=== PATIENT | male | born 1935 | race Two or more races ===

== ENCOUNTER 2018-07-25 19:54 | Inpatient (IN) | payer MEDICARE, MEDICAID ==
[~2018-07-25] VITALS: Ht 167.6 cm; Wt 81.6 kg
[~2018-07-25 19:54] MED LIST: BACLOFEN10 MG ORAL; BISACODYL5 MG RECTAL; COLACE100 MG ORAL; GABAPENTIN300 MG ORAL; GUAIFENESI100 MG/5 M ORAL; LORAZEPAM1 MG ORAL; METOPROLOL TAR100 MG ORAL; MOM30 ML ORAL; PANTOPRAZOLE SO40 MG ORAL; SENNA8.6 M3 PO; TYLENOL650 MG/20. ORAL; VITAMIN B COMP1 EAC5 PO; VITAMIN C250 MG ORAL; magnesium ORAL
[2018-07-25] MEDS ORDERED: AMLODIPINE BESY10 MG ORAL (20:02)
[2018-07-25] MEDS ORDERED: BENADRYL A12.5 MG/5 ORAL (20:06)
[2018-07-25] MEDS ORDERED: FUROSEMIDE40 MG ORAL (20:06)
[2018-07-25] MEDS ORDERED: MIRALAX17 G2 ORAL (20:07)
[2018-07-25] MEDS ORDERED: POTASSIUM99 M3 PO (20:08)
[2018-07-25] MEDS ORDERED: PREPARATION H1 EAC1 TP (20:09)
--- NOTE | 2018-07-25 21:00 | NUR ---
ED Nurse Note: RECIEVED PT BIBA FROM SNF WITH C/O ABNORMAL LABS, UNSURE OF WHAT LABS ARE ABNORMAL, PT IS AWAKE, ALERT AND ORIENTED X 4, DENIES PAIN, NO SOB OR LABORED BREATHING, PT PLACED ON CARDIAC MONITORING, IV LINE PALCED AND LABS DRAWN, WILL RESUME CARE ORDERED AND CONTINUE TO CLOSELY MONITOR.
--- NOTE | 2018-07-25 21:00 | Emergency Room Report ---
History of Present Illness General Chief Complaint: General Complaint Source: Patient, EMS Present Illness HPI The patient is sent in for abnormal labs. Apparently his white count is high and also his creatinine. According to EMS he was also complaining about abdominal pain and having difficulty moving his bowels and having decreased urine output. He states it has been at least 4 days since he was able to move his bowels. The pain in his abdomen is diffuse. Denies vomiting or rectal bleeding. He states his urine has been dark and he has to bear down hard to urinate. Denies fevers, chest pain, URI, cough, dyspnea. He does feel weak. He rates the pain 6/10 to me, pressure and diffuse, not radiating. He is complaining that his eyes are dry and burning. S/P CVA with L sided weakness. H/O HTN GERD Allergies: Coded Allergies: No Known Allergies (Unverified , 09/03/14) Patient History Past Medical History: see triage record, old chart reviewed Past Surgical History: appy Social History: Denies: smoking Social History Narrative SNF Reviewed Nursing Documentation: PMH: Agreed; PSxH: Agreed Nursing Documentation-PMH Past Medical History: No History, Except For Hx Cardiac Problems: Yes Hx Hypertension: Yes Hx Cancer: Yes - BPH Hx Gastrointestinal Problems: Yes - GERD History Of Psychiatric Problem: Yes - DEMENTIA Hx Neurological Problems: Yes Hx Cerebrovascular Accident: Yes Hx Weakness: Yes Review of Systems All Other Systems: negative except mentioned in HPI Physical Exam Vital Signs Date Time Temp Pulse Resp B/P (MAP) Pulse Ox O2 Delivery O2 Flow Rate FiO2 07/25/18 19:55 98.8 75 16 154/67 92 Room Air Sp02 EP Interpretation: reviewed, normal General Appearance: no apparent distress, alert, Chronically Ill Head: normocephalic Eyes: bilateral eye normal inspection, bilateral eye PERRL, bilateral eye EOMI ENT: moist mucus membranes Neck: supple Respiratory: lungs clear, normal breath sounds Cardiovascular #1: regular rate, rhythm, no edema Cardiovascular #2: 2+ radial (R) Gastrointestinal: no guarding, no rebound, tenderness - diffuse Genitourinary: no CVA tenderness Musculoskeletal: back normal, no calf tenderness Neurologic: alert, sensory intact, motor weakness - L sided, oriented - X2 Psychiatric: mood/affect normal Skin: normal inspection, warm/dry Medical Decision Making Diagnostic Impression: Primary Impression: Abdominal pain in male Additional Impressions: Leukocytosis Qualified Codes: D72.828 - Other elevated white blood cell count Constipation Qualified Codes: K59.00 - Constipation, unspecified ER Course Patient presents with abdominal pain and alleged leukocytosis. DDx: SBO, diverticulitis, UTI, constipation, sepsis, ischemic bowel amongst others. Evaluation with EKG, CXR, Abd film and labs. Treatment with IV hydration. Patient declines pain medicine at this time. EKG without injury. CXR no infiltrates. Abd with increased stool. Leukocytosis. No pyuria (blood from difficult cath). Elevated BUN. Normal lactate. Discussed with family. Patient still with abdominal pain with some guarding. CT abdomen/pelvis indicated. (Choice of gastrograffin as will help move stool.) Admit med as source of leukocytosis and abdominal pain is unclear. Dr. Foote aware. Laboratory Tests Test 07/25/18 21:05 07/25/18 23:25 White Blood Count 10.9 K/UL (4.8-10.8) H Red Blood Count 4.82 M/UL (4.70-6.10) Hemoglobin 15.0 G/DL (14.2-18.0) Hematocrit 44.3 % (42.0-52.0) Mean Corpuscular Volume 92 FL (80-99) Mean Corpuscular Hemoglobin 31.2 PG (27.0-31.0) H Mean Corpuscular Hemoglobin Concent 33.9 G/DL (32.0-36.0) Red Cell Distribution Width 11.9 % (11.6-14.8) Platelet Count 240 K/UL (150-450) Mean Platelet Volume 6.5 FL (6.5-10.1) Neutrophils (%) (Auto) 64.0 % (45.0-75.0) Lymphocytes (%) (Auto) 25.9 % (20.0-45.0) Monocytes (%) (Auto) 7.0 % (1.0-10.0) Eosinophils (%) (Auto) 2.6 % (0.0-3.0) Basophils (%) (Auto) 0.6 % (0.0-2.0) Prothrombin Time 10.0 SEC (9.30-11.50) Prothrombin Time INR 0.9 (0.9-1.1) PTT 33 SEC (23-33) Sodium Level 138 MMOL/L (136-145) Potassium Level 3.8 MMOL/L (3.5-5.1) Chloride Level 103 MMOL/L (98-107) Carbon Dioxide Level 28 MMOL/L (21-32) Anion Gap 7 mmol/L (5-15) Blood Urea Nitrogen 21 mg/dL (7-18) H Creatinine 1.0 MG/DL (0.55-1.30) Estimate Glomerular Filtration Rate mL/min (>60) Glucose Level 173 MG/DL (74-106) H Lactic Acid Level 1.40 mmol/L (0.4-2.0) Calcium Level 8.9 MG/DL (8.5-10.1) Total Bilirubin 0.3 MG/DL (0.2-1.0) Aspartate Amino Transferase (AST) 17 U/L (15-37) Alanine Aminotransferase (ALT) 22 U/L (12-78) Alkaline Phosphatase 89 U/L (46-116) Total Creatine Kinase 51 U/L (26-308) Troponin I 0.000 ng/mL (0.000-0.056) Pro-B-Type Natriuretic Peptide 101 pg/mL (0-125) Total Protein 7.3 G/DL (6.4-8.2) Albumin 3.2 G/DL (3.4-5.0) L Globulin 4.1 g/dL Albumin/Globulin Ratio 0.8 (1.0-2.7) L Lipase 95 U/L (73-393) Urine Color Yellow Urine Appearance Slightly cloudy Urine pH 5 (4.5-8.0) Urine Specific [place] 1.025 (1.005-1.035) Urine Protein 2+ (NEGATIVE) H Urine Glucose (UA) Negative (NEGATIVE) Urine Ketones Negative (NEGATIVE) Urine Blood 5+ (NEGATIVE) H Urine Nitrite Negative (NEGATIVE) Urine Bilirubin Negative (NEGATIVE) Urine Urobilinogen 1 MG/DL (0.0-1.0) H Urine Leukocyte Esterase 1+ (NEGATIVE) H Urine RBC Tntc /HPF (0 - 0) H Urine WBC 0-2 /HPF (0 - 0) Urine Squamous Epithelial Cells None /LPF (NONE/OCC) Urine Bacteria Few /HPF (NONE) EKG Diagnostic Results Rate: normal Rhythm: NSR ST Segments: no acute changes - Low-voltage Rhythm Strip Diag. Results EP Interpretation: yes Rhythm: NSR, no PVC's, no ectopy Chest X-Ray Diagnostic Results Chest X-Ray Diagnostic Results : Chest X-Ray Ordered: Yes # of Views/Limited/Complete: 1 View Indication: Other EP Interpretation: Yes Interpretation: no consolidation, no effusion, no pneumothorax Impression: No acute disease Electronically Signed by: Homero Hidalgo MD Other X-Ray Diagnostic Results Other X-Ray Diagnostic Results : X-Ray ordered: abd # of Views/Limited Vs Complete: 2 View Indication: Pain Interpretation: nonspecific bowel gas, no sbo, other - increased stool load Impression: Other Electronically Signed by: Homero Hidalgo MD CT/MRI/US Diagnostic Results CT/MRI/US Diagnostic Results : Imaging Test Ordered: abd/pelvis Impression 1. Moderate colonic and rectal stool, suggesting constipation and possible mild impaction. 2. Ill-defined 2.5 x 1.5 cm hypodensity along the posterior spleen, nonspecific. Differential diagnosis includes a hemangioma or remote splenic infarct. 3. 2.5 cm simple-appearing cortical cyst in the right lower renal pole, unchanged. 4. The prostate gland is enlarged, measuring 6.5 x 6.5 x 4.8 cm, with an estimated volume of 106 cc. Laboratory Tests Test 07/25/18 21:05 07/25/18 23:25 White Blood Count 10.9 K/UL (4.8-10.8) H Red Blood Count 4.82 M/UL (4.70-6.10) Hemoglobin 15.0 G/DL (14.2-18.0) Hematocrit 44.3 % (42.0-52.0) Mean Corpuscular Volume 92 FL (80-99) Mean Corpuscular Hemoglobin 31.2 PG (27.0-31.0) H Mean Corpuscular Hemoglobin Concent 33.9 G/DL (32.0-36.0) Red Cell Distribution Width 11.9 % (11.6-14.8) Platelet Count 240 K/UL (150-450) Mean Platelet Volume 6.5 FL (6.5-10.1) Neutrophils (%) (Auto) 64.0 % (45.0-75.0) Lymphocytes (%) (Auto) 25.9 % (20.0-45.0) Monocytes (%) (Auto) 7.0 % (1.0-10.0) Eosinophils (%) (Auto) 2.6 % (0.0-3.0) Basophils (%) (Auto) 0.6 % (0.0-2.0) Prothrombin Time 10.0 SEC (9.30-11.50) Prothrombin Time INR 0.9 (0.9-1.1) PTT 33 SEC (23-33) Sodium Level 138 MMOL/L (136-145) Potassium Level 3.8 MMOL/L (3.5-5.1) Chloride Level 103 MMOL/L (98-107) Carbon Dioxide Level 28 MMOL/L (21-32) Anion Gap 7 mmol/L (5-15) Blood Urea Nitrogen 21 mg/dL (7-18) H Creatinine 1.0 MG/DL (0.55-1.30) Estimate Glomerular Filtration Rate mL/min (>60) Glucose Level 173 MG/DL (74-106) H Lactic Acid Level 1.40 mmol/L (0.4-2.0) Calcium Level 8.9 MG/DL (8.5-10.1) Total Bilirubin 0.3 MG/DL (0.2-1.0) Aspartate Amino Transferase (AST) 17 U/L (15-37) Alanine Aminotransferase (ALT) 22 U/L (12-78) Alkaline Phosphatase 89 U/L (46-116) Total Creatine Kinase 51 U/L (26-308) Troponin I 0.000 ng/mL (0.000-0.056) Pro-B-Type Natriuretic Peptide 101 pg/mL (0-125) Total Protein 7.3 G/DL (6.4-8.2) Albumin 3.2 G/DL (3.4-5.0) L Globulin 4.1 g/dL Albumin/Globulin Ratio 0.8 (1.0-2.7) L Lipase 95 U/L (73-393) Urine Color Yellow Urine Appearance Slightly cloudy Urine pH 5 (4.5-8.0) Urine Specific [place] 1.025 (1.005-1.035) Urine Protein 2+ (NEGATIVE) H Urine Glucose (UA) Negative (NEGATIVE) Urine Ketones Negative (NEGATIVE) Urine Blood 5+ (NEGATIVE) H Urine Nitrite Negative (NEGATIVE) Urine Bilirubin Negative (NEGATIVE) Urine Urobilinogen 1 MG/DL (0.0-1.0) H Urine Leukocyte Esterase 1+ (NEGATIVE) H Urine RBC Tntc /HPF (0 - 0) H Urine WBC 0-2 /HPF (0 - 0) Urine Squamous Epithelial Cells None /LPF (NONE/OCC) Urine Bacteria Few /HPF (NONE) Status: improved Disposition: ADMITTED INPATIENT Condition: Serious Homero Hidalgo MD Jul 25, 2018 21:00
--- NOTE | 2018-07-25 21:06 | Diagnostic Imaging Report ---
EXAM: XR Chest, 1 View CLINICAL HISTORY: CP TECHNIQUE: Frontal view of the chest. COMPARISON: No relevant prior studies available. FINDINGS: Lungs: No consolidation. Pleural space: Unremarkable. No pneumothorax. Heart: Unremarkable. No cardiomegaly. Mediastinum: Unremarkable. Bones/joints: No acute fracture. IMPRESSION: No acute cardiopulmonary disease.
[2018-07-25 21:45] LABS: BASOPHILS % (AUTO) 0.6 % (0.0-2.0); EOSINOPHILS % (AUTO) 2.6 % (0.0-3.0); HEMATOCRIT 44.3 % (42.0-52.0); LYMPHOCYTES % (AUTO) 25.9 % (20.0-45.0); MEAN CORPUSCULAR VOLUME 92 FL (80-99); PLATELET COUNT 240 K/UL (150-450); RED BLOOD COUNT 4.82 M/UL (4.70-6.10); RED CELL DISTRIBUTION WIDTH 11.9 % (11.6-14.8); WHITE BLOOD COUNT 10.9 K/UL (4.8-10.8)
--- NOTE | 2018-07-25 21:45 | NUR ---
ED Nurse Note: ATTEMPTED STRAIGHT CATH FOR URINE SAMPLE, UNABLE TO INSERT, RECIEVED RESISTANCE, INFORMED, CUDAY CATH PLACED, NO COMPLICATIONS OR BLEEDING, SPECIMEN SENT, PT CONTINUES TO REST QUIETLY IN BED, PT SPOUSE AND DAUGHTER HAS ARRIVED AND AT BEDSIDE, PT CONTINUES TO DENY ANY ACUTE CHANGES OR DISTRESS, WILL CONTINUE TO CLOSELY MONITOR AND PREPARE FOR PT ADMISSION.
[2018-07-25 21:47] LABS: INR 0.9 (0.9-1.1)
[2018-07-25 22:02] LABS: ANION GAP 7 mmol/L (5-15); BLOOD UREA NITROGEN 21 mg/dL (7-18); CALCIUM 8.9 MG/DL (8.5-10.1); CARBON DIOXIDE 28 MMOL/L (21-32); CHLORIDE 103 MMOL/L (98-107); POTASSIUM 3.8 MMOL/L (3.5-5.1); SODIUM 138 MMOL/L (136-145)
[2018-07-25 22:16] LABS: ALANINE AMINOTRANSFERASE 22 U/L (12-78); ALBUMIN 3.2 G/DL (3.4-5.0); ALBUMIN/GLOBULIN RATIO 0.8 (1.0-2.7); ALKALINE PHOSPHATASE 89 U/L (46-116); ASPARTATE AMINO TRANSFERASE 17 U/L (15-37); BILIRUBIN,TOTAL 0.3 MG/DL (0.2-1.0); CREATINE KINASE 51 U/L (26-308)
[2018-07-25 23:00] VITALS: BP 123/57
[2018-07-25] MEDS ORDERED: Artificial Tears 1.4% Op Soln BOTH EYES ONE (23:00)
[2018-07-25 23:50] LABS: APPEARANCE,URINE SLIGHTLY CLOUDY; BILIRUBIN, URINE NEGATIVE (NEGATIVE); GLUCOSE, URINE (UA) NEGATIVE (NEGATIVE); KETONES,URINE NEGATIVE (NEGATIVE); LEUKOCYTE ESTERASE ,URINE 1+ (NEGATIVE); NITRITE,URINE NEGATIVE (NEGATIVE); PH,URINE 5 (4.5-8.0); PROTEIN,URINE 2+ (NEGATIVE); UROBILINOGEN,URINE 1 MG/DL (0.0-1.0)
[2018-07-25 23:51] LABS: COLOR,URINE YELLOW
[2018-07-26] VITALS (9 sets, daily range): BP systolic 128–144; BP diastolic 59–74
--- NOTE | 2018-07-26 | NUR ---
ED Nurse Note: PT CONTINUES TO REST IN BED, AWAKE AND ALERT, ON CARDIAC MONITORING, IV SITE PATENT, FLUIDS COMPLETED, TOLERATED WELL, DENEIS PAIN OR ANY DISCOMFORTS, WILL CONTINUE TO CLOSELY MONITOR WHILE WAITING FOR RESULTS AND DISPO INFORMATION.
--- NOTE | 2018-07-26 01:42 | Diagnostic Imaging Report ---
EXAM: XR Abdomen CLINICAL HISTORY: ABD PAIN TECHNIQUE: Frontal view of the abdomen/pelvis COMPARISON: Correlation with CT abdomen dated 09/03/14. FINDINGS: Gastrointestinal tract: Moderate amount of stool is present in the colon. There is no bowel obstruction. Bones/joints: There are degenerative changes in the spine with hardware projecting over the lower lumbar spine. Other findings: A 4 mm calcification projects over the right pelvis. IMPRESSION: 1. No acute findings. 2. Moderate amount of stool throughout the colon.
--- NOTE | 2018-07-26 02:00 | NUR ---
ED Nurse Note: NO CHANGES OR INCREASED DISTRESS NOTED, PT CONTINUES TO REST IN BED, SLEEPING, AROUSES EASILY TO VERBAL STIMULI, DENIES CP OR ANY PAIN, TP TO BE ADMITTED TO HOSPITAL, WILL CONTINUE TO MONITOR WHILE WAITING FOR ROOM PLACEMENT FOR ADMISISON.
[2018-07-26] MEDS ORDERED: Isovue-300 100ml vial INJ PRN (02:15)
[2018-07-26] MEDS ORDERED: Gastrograffin 30ml RECTAL PRN (02:15)
--- NOTE | 2018-07-26 04:00 | NUR ---
ED Nurse Note: PT HAS ROOM FOR ADMISSION, ORDERED CT-SCAN AND WANTS CONTRAST TO BE GIVEN BEFORE PT TO GO TO FLOOR BED, IMAGING ABHISHEK CLARKE, WIATING FOR CONTRAST, PT CONTINUES TO REST IN BED, NO CHAGNES OR DISTRESS NOTED, V/S STABLE, IV SITE PATENT, PT ASSISTED WITH RE-POSITIONING WITH PILLOWS FOR FEET SUPPORT.
--- NOTE | 2018-07-26 05:35 | NUR ---
ED Nurse Note: PT STARTED ON ORAL CONTRAST, WILL NOTIFY TECH WHEN COMPLETED AND SEND TO FLOOR FOR ADMISSION.
--- NOTE | 2018-07-26 06:15 | NUR ---
ED Nurse Note: PT COMPLETED ORAL CONTRAST, REPORTED TO IMAGING DEPARTMENT, PT TO HAVE CT-SCAN IN 2 HOURS, PT IS AWARE, IN BED, AWAKE, ALERT AND ORIENTED X 4, PLACED CALL TO FLOOR UNIT IN ATTEMPT TO GIVE REPORT, PLACED ON HOLD, NO NURSE TO PHONE, WILL RE-ATTEMPT.
--- NOTE | 2018-07-26 06:35 | NUR ---
ED Nurse Note: PLACED CALL AGAIN TO FLOOR FOR REPORT, NO NURSE TO PHONE, SENIOR SHAREPOINT DEVELOPER STATED SHE INFORMED RN, CHARGE NURSE TERA AND LPN INSTRUCTOR AWARE AND STATED THAT PT HAS TO GO UP AND TO TAKE AND GIVE BEDSIDE REPORT, PT TAKEN TO UNIT VIA GURNEY AND ER-TECH, BELONGINGS LIST COMPLETED, IV SITE PATENT, LEIVA TO GRAVITY, NAD OR CHAGNES NOTED DURING TAKING TO FLOOR BED FOR ADMISSION.
--- NOTE | 2018-07-26 06:40 | NUR ---
NURSE NOTES: Pt brought up to unit via arleth w/no belongings; belongings list states pt has an iPhone but pt denies. Fatuma RN, from ER did not review belongings list with me before returning to ER. Pt A&Ox2-3, VSS, and in no apparent distress. IV site intact/asymptomatic & F/C patent/draining; pictures taken of non-intact skin. Will endorse to oncoming nurse.
[2018-07-26] MEDS ORDERED: BRIMONIDINE TART5 ML BOTH EYES (07:41)
--- NOTE | 2018-07-26 08:13 | NUR ---
HAND-OFF: Report given to KAMILA Nazario.
--- NOTE | 2018-07-26 09:27 | Diagnostic Imaging Report ---
EXAM: CT Abdomen and Pelvis With Intravenous Contrast CLINICAL HISTORY: ABD PAIN TECHNIQUE: Axial computed tomography images of the abdomen and pelvis with intravenous contrast. CTDI is 17.64 mGy and DLP is 928 mGy-cm. One or more of the following dose reduction techniques were used: automated exposure control, adjustment of the mA and/or kV according to patient size, use of iterative reconstruction technique. Oral contrast was administered. Coronal and sagittal reformatted images were created and reviewed. COMPARISON: CT abdomen and pelvis therefore 10:15 FINDINGS: Lung bases: Mild dependent atelectasis in bilateral lung bases. ABDOMEN: Liver: Unremarkable. No mass. Gallbladder and bile ducts: Unremarkable. No calcified stones. No ductal dilation. Pancreas: Unremarkable. No mass. No ductal dilation. Spleen: Ill-defined 2.5 x 1.5 cm hypodensity along the posterior spleen, nonspecific. Adrenals: Unremarkable. No mass. Kidneys and ureters: 2.5 cm simple-appearing cortical cyst in the right lower renal pole. The kidneys otherwise appear unremarkable. No hydronephrosis or hydroureter. Stomach and bowel: Moderate colonic and rectal stool, suggesting constipation and possible mild impaction. Remainder of the colon appears unremarkable. No abnormally distended loops of small bowel. GE junction and stomach appear unremarkable. No mucosal thickening. PELVIS: Appendix: Appendix is not definitively identified however no inflammatory changes are seen in the right lower quadrant. Bladder: Olguin catheter balloon and tip in the decompressed urinary bladder lumen. Reproductive: The prostate gland is enlarged, measuring 6.5 x 6.5 x 4. 8 cm, with an estimated volume of 106 cc. ABDOMEN and PELVIS: Intraperitoneal space: Unremarkable. No free air. No significant fluid collection. Bones/joints: Postsurgical changes in the lower lumbar spine, with left-sided hemilaminectomies at L3 and L4 and spinous process fusion at L3-L4. Laminectomies also noted in the lower thoracic spine. Multilevel degenerative changes throughout the visualized spine with disc space loss and endplate osteophytes. No acute fracture. No dislocation. Soft tissues: Small fat-containing left inguinal hernia. Vasculature: Atherosclerotic calcifications throughout the abdominal aorta and its proximal branches. No abnormal dilatation. Lymph nodes: Unremarkable. No enlarged lymph nodes. IMPRESSION: 1. Moderate colonic and rectal stool, suggesting constipation and possible mild impaction. 2. Ill-defined 2.5 x 1.5 cm hypodensity along the posterior spleen, nonspecific. Differential diagnosis includes a hemangioma or remote splenic infarct. 3. 2.5 cm simple-appearing cortical cyst in the right lower renal pole, unchanged. 4. The prostate gland is enlarged, measuring 6.5 x 6.5 x 4.8 cm, with an estimated volume of 106 cc.
--- NOTE | 2018-07-26 10:45 | NUR ---
NURSE NOTES: Patient is in bed awake and able to verbalize needs. Patient denies pain at this time. Stable with no s/s acute distress. Plan of care discussed with patient. Patient is comfortable in bed with call light within reach. Will continue to monitor.
--- NOTE | 2018-07-26 12:00 | NUR ---
NURSE NOTES: Attempted to do admission profile using [employer] seed cone picker [employer] (#[id number]). Patient refused to answer questions and became agitated and yelled at seed cone picker in Mauritanian. Patient handed back telephone multiple times, encouraged patient to answer admission profile questions, Patient continued to refuse. Charge nurse aware. Will continue to monitor.
[2018-07-26] MEDS: cefTRIAXone 1 GM in D5W 55 ML IVPB SCH (13:37)
[2018-07-26] MEDS ORDERED: Prep H Ointment 57gm RECTAL PRN (14:30)
[2018-07-26] MEDS ORDERED: Hydrocortisone 1% Oint 30gm TOPIC PRN (16:30)
[2018-07-26] MEDS: Brimonidine 0.2% Opth Sol BOTH EYES SCH (17:41)
[2018-07-26] MEDS: Docusate 100mg cap ORAL SCH (17:41)
--- NOTE | 2018-07-26 20:02 | NUR ---
HAND-OFF: Report given to Effie TREVIÑO. Patient is stable.
--- NOTE | 2018-07-26 20:15 | NUR ---
NURSE NOTES: PATIENT IN BED, AWAKE, VERBALLY RESPONSIVE. IV IN PLACE. NO S/S DISTRESS OR PAIN NOTED. LEIVA IN PLACE, DRAINING. BED IN LOWEST POSITION, CALL LIGHT WITHIN REACH. WILL CONTINUE TO MONITOR.
--- NOTE | 2018-07-26 23:04 | NUR ---
NURSE NOTES: VIA [employer] MANAGER [employer]ICAL [employer] SERVICE, [employer]ICRUZDusty #[id number], PATIENT IS COMPLAINING OF PAIN IN PENIS AND IS REQUESTING TO HAVE THE LEIVA TAKEN OUT. NURSE EXPLAINED THAT A DOCTOR'S ORDER IS NEEDED TO HAVE THE LEIVA CATHETER TAKEN OUT, PATIENT VERBALIZED UNDERSTANDING. LEFT MESSAGE FOR DR. PAIGE. CHARGE NURSE MADE AWARE. Addendum: 07/26/18 at 2332 by EVERETT BAILON RN RN PATIENT NOTED TO HAVE DARK RED HEMATURIA. CHARGE NURSE AWARE.
--- NOTE | 2018-07-26 23:40 | NUR ---
NURSE NOTES: CALLED AND SPOKE WITH DR. PAIGE REGARDING PATIENT COMPLAINING ABOUT HAVING PAIN IN HIS PENIS AND WANTING THE LEIVA TAKEN OUT AND PATIENT HAVING HEMATURIA DUE TO PATIENT POSSIBLY PULLING THE LEIVA. RECEIVED ORDER TO D/C CALI, ORDER CARRIED OUT. CHARGE NURSE AWARE. Addendum: 07/27/18 at 0033 by EVERETT BAILON RN RN PATIENT NOT HAVING COMPLAINTS OF PAIN AT THIS TIME AND HAS VOIDED URINE.
[2018-07-27 00:31] VITALS: BP 137/68
--- NOTE | 2018-07-27 01:45 | History and Physical Report ---
DATE OF ADMISSION: 07/26/2018 HISTORY OF PRESENT ILLNESS: This is an 82-year-old male, who came to the emergency room for having abdominal pain and dehydration, nausea, vomiting, UTI at the alf. The patient continued to look dehydrated and complain of pain. PAST MEDICAL HISTORY: Significant for CVA, hypertension, hyperlipidemia, atopic dermatitis, and mostly wheelchair bound. REVIEW OF SYSTEMS: Generalized weakness, tired, fatigue, dysuria, and has poor p.o. intake for the last one week. MEDICATIONS: See the list. OBJECTIVE: VITAL SIGNS: Blood pressure is 116/70, pulse 74, respirations 18 to 24, temperature, no fever. SKIN: Has dermatitis all over body. CHEST: Bilaterally clear. CARDIOVASCULAR: Regular rhythm. No gallop. No murmur. ABDOMEN: Soft. Positive bowel sounds. Mild tenderness lower abdomen. GENITOURINARY: Deferred. LABORATORY DATA: Laboratory examinations are pending in the hospital. ASSESSMENT: 1. Abdominal pain. 2. UTI. 3. Dehydration. 4. CVA. 5. Malnutrition. PLAN: 1. Consider GI consult. 2. Continue antibiotic. 3. Continue IV fluid. 4. Continue hydrocortisone. Vincent Foote M.D. DR: RAMYA JOB#: [id number] CC:
[2018-07-27 04:25] VITALS: BP 131/76
--- NOTE | 2018-07-27 07:15 | NUR ---
HAND-OFF: Report given to AMISH EASLEY LVN.
[2018-07-27 07:51] LABS: BASOPHILS % (AUTO) 0.3 % (0.0-2.0); HEMATOCRIT 45.3 % (42.0-52.0); HEMOGLOBIN 15.3 G/DL (14.2-18.0); LYMPHOCYTES % (AUTO) 25.9 % (20.0-45.0); MEAN CORPUSCULAR VOLUME 92 FL (80-99); MONOCYTES % (AUTO) 4.4 % (1.0-10.0); NEUTROPHILS % (AUTO) 68.4 % (45.0-75.0); PLATELET COUNT 254 K/UL (150-450); RED BLOOD COUNT 4.93 M/UL (4.70-6.10); RED CELL DISTRIBUTION WIDTH 11.6 % (11.6-14.8); WHITE BLOOD COUNT 11.2 K/UL (4.8-10.8)
--- NOTE | 2018-07-27 08:00 | NUR ---
NURSE NOTES: Patient is in bed A/A/OX4, KHMER speaking and able to comprehend basic burkinan. Patient denies pain at this time. no s/s acute distress. IV access patent and intact. bed in the lowest position. siderails are upx3. call light within reach. Will continue to monitor.
[2018-07-27 08:16] LABS: ALANINE AMINOTRANSFERASE 22 U/L (12-78); ALBUMIN 3.2 G/DL (3.4-5.0); ALBUMIN/GLOBULIN RATIO 0.8 (1.0-2.7); ALKALINE PHOSPHATASE 83 U/L (46-116); ANION GAP 8 mmol/L (5-15); ASPARTATE AMINO TRANSFERASE 16 U/L (15-37); BILIRUBIN,TOTAL 0.4 MG/DL (0.2-1.0); BLOOD UREA NITROGEN 11 mg/dL (7-18); CALCIUM 8.7 MG/DL (8.5-10.1); CARBON DIOXIDE 26 MMOL/L (21-32); CHLORIDE 103 MMOL/L (98-107); CREATININE 0.7 MG/DL (0.55-1.30); POTASSIUM 3.9 MMOL/L (3.5-5.1); SODIUM 137 MMOL/L (136-145)
[2018-07-27 08:19] VITALS: BP 142/74
[2018-07-27] MEDS: Docusate 100mg cap ORAL SCH ×2 (08:48→17:31)
[2018-07-27] MEDS: Brimonidine 0.2% Opth Sol BOTH EYES SCH ×2 (08:50→17:31)
[2018-07-27] MEDS: Furosemide 40mg tab ORAL SCH (08:50)
[2018-07-27] MEDS ORDERED: Miralax 17gm pkt ORAL PRN (09:00)
[2018-07-27 12:00] VITALS: BP 118/65
[2018-07-27] MEDS: cefTRIAXone 1 GM in D5W 55 ML IVPB SCH (12:49)
--- NOTE | 2018-07-27 13:36 | NUR ---
CASE MANAGEMENT: REVIEW 82 YO M COLE FROM [facility] CC: ABNORMAL LABS PMHx: GERD. DEMENTIA. CVA. HTN. SI:LEUKOCYTOSIS. T 98.8 HR 75 RR 16 B/P 154/67 SATS 92% ON RA WBC 10.9 BUN 21 GLU 173 IS: NS BOLUS X1 PATIENT ADMITTED TO MED/SURG 07/26/2018 @ 0015 DCP: PATIENT TO BE DISCHARGED TO SNF ONCE MEDICALLY CLEARED. PLAN OF CARE: Continue antibiotic. Continue IV fluid. Continue hydrocortisone. Addendum: 07/28/18 at 2027 by Connie Lu CM INTERQUAL
[2018-07-27 16:10] VITALS: BP 130/68
[2018-07-27] MEDS ORDERED: 1/2 NS 1000ml IV ONE (17:43)
--- NOTE | 2018-07-27 19:19 | NUR ---
HAND-OFF: Report given to Екатерина.
--- NOTE | 2018-07-27 20:15 | NUR ---
NURSE NOTES: PATIENT IN BED, AWAKE, VERBALLY RESPONSIVE. IV IN PLACE, RUNNING IV FLUIDS. NO S/S DISTRESS AND NO COMPLAINTS OF PAIN NOTED. BED IN LOWEST POSITION, CALL LIGHT WITHIN REACH. WILL CONTINUE TO MONITOR.
[2018-07-27 20:33] VITALS: BP 133/69
[2018-07-28] VITALS: BP 149/98
[2018-07-28 04:00] VITALS: BP 134/68
--- NOTE | 2018-07-28 06:57 | NUR ---
NURSE NOTES: PATIENT ASLEEP, NO DISTRESS.
--- NOTE | 2018-07-28 07:00 | NUR ---
HAND-OFF: Report given to JENNIFER RODRIGUEZ RN.
--- NOTE | 2018-07-28 07:10 | NUR ---
NURSE NOTES:RECEIVED REPORT FR.PATRICIA TREVIÑO.,WALKING ROUNDS DONE,PATIENT A/OX2,ROOM AIR,IV SITE PATENT,C/C DRAINING CLEAR YELLOW URINE.NO C/O PAIN.PLAN OF CARE DISCUSSED AND WITH UNDERSTANDING.
[2018-07-28 08:00] VITALS: BP 130/68
[2018-07-28] MEDS: Furosemide 40mg tab ORAL SCH (08:12)
[2018-07-28] MEDS: Docusate 100mg cap ORAL SCH ×2 (08:13→17:52)
[2018-07-28] MEDS: Brimonidine 0.2% Opth Sol BOTH EYES SCH ×2 (08:14→17:53)
--- NOTE | 2018-07-28 11:20 | NUR ---
DISCHARGE PLANNING DISCHARGE ORDER NOTED FAXED CLINICALS TO [facility] T: [phone] F: [phone] WAITING FOR ROOM ASSIGNMENT
--- NOTE | 2018-07-28 11:39 | NUR ---
NURSE NOTES:SEEN BY WOUND CARE NURSE RECOMMENDED:APPLY TREAD WITH [employer] [id number] AND PRN.
[2018-07-28 11:50] VITALS: BP 132/66
--- NOTE | 2018-07-28 14:00 | NUR ---
NURSE NOTES:TURNED AND REPOSITIONED TO LEFT SIDE.
--- NOTE | 2018-07-28 14:03 | NUR ---
DISCHARGE PLANNED PATIENT ACCEPTED TO [facility] ROOM 121 A SKILLED T: [phone] FOR NURSE TO NURSE REPORT [facility] HAS BEEN ARRANGED FOR 1530 PERFORMANCE REPORTER CALLED AND SPOKE WITH DAUGHTER CRISTOPHER WHO IS IN AGREEMENT WITH DISCHARGE PLAN Addendum: 07/28/18 at 1419 by PATTI DAWSON LVN LVN DISCHARGE FOR TOMORROW NOT TODAY
[2018-07-28 16:00] VITALS: BP 133/58
--- NOTE | 2018-07-28 19:32 | NUR ---
HAND-OFF: Report given to TRACEE PERALTA RN.PATIENT STABLE.
[2018-07-28 20:00] VITALS: BP 126/59
--- NOTE | 2018-07-28 22:59 | NUR ---
NURSE NOTES: Patient in bed awake and oriented. VSS. No SOB noted. Dressing is clean and intact. No pain at this time. Repositioned for comfort. Patient is clean and dry. Needs attended. Bed is locked and in low position. Call light within reach. In stable condition.
[2018-07-29] VITALS: BP 120/62
[2018-07-29 04:00] VITALS: BP 130/71
--- NOTE | 2018-07-29 07:14 | NUR ---
NURSE NOTES: Patient is cleaned and bed changed. No pain noted at this time. Needs attended. In stable condition.
--- NOTE | 2018-07-29 07:15 | NUR ---
NURSE NOTES:walking rounds done with night rn(mitchel burt),patient a/ox2-3,room air,nad,oftifoam intact on left buttock.heplock on left wrist intact,turned and repositioned.will continue plan of care
--- NOTE | 2018-07-29 07:15 | Progress Note ---
DATE: 07/27/2018 NOTE: POOR AUDIO This is a late entry progress note. SUBJECTIVE: This is UTI, generalized weakness, . The patient is doing better. OBJECTIVE: VITAL SIGNS: Stable. CHEST: Bilaterally clear. CARDIOVASCULAR: Regular rhythm. ABDOMEN: Soft. Positive bowel sounds. EXTREMITIES: CCE. NEUROLOGICAL: Generalized weakness. ASSESSMENT: 1. Urinary tract infection. 2. 3. Weakness . We will continue . Wound care. PT and OT. PLAN: 1. We will continue IV fluids and IV antibiotics. 2. Wound care. 3. PT and OT. Vincent Foote M.D. DR: BRANDON JOB#: [id number] CC:
[2018-07-29 08:00] VITALS: BP 124/65
[2018-07-29] MEDS: Furosemide 40mg tab ORAL SCH (08:49)
[2018-07-29] MEDS: Docusate 100mg cap ORAL SCH (08:51)
[2018-07-29] MEDS: Brimonidine 0.2% Opth Sol BOTH EYES SCH (08:51)
--- NOTE | 2018-07-29 10:29 | NUR ---
NURSE NOTES:REPORT GIVEN TO TAMMY TREVIÑO.RE:TRANSFER REPORT.INFORMED ALSO THAT PATIENTS DAUGHTER RICARDO WAS NOTIFIED YESTERDAY 1T 1600(07/28/18)RE;PATIENTS TRANSFER TODAY.
--- NOTE | 2018-07-29 11:18 | NUR ---
EribertoT NOTE: P.T CONSULT RECEIVED, P.T EVAL COMPLETED, PATIENT AT BASELINE LEVEL OF FUNCTION. NO SKILLED PT NEEDS AT THIS TIME.PATIENT DEPENDENT/MAX FOR BED MOBILITY AND TRANSFER AND NON AMBULATORY. RECOMMEND RETURN TO PRIOR LIVING ARRANGEMENT TO SNF AT [place]. Addendum: 07/29/18 at 1118 by SUNNY KHANNA PT Amended: Links added.
[2018-07-29 12:00] VITALS: BP 123/59
--- NOTE | 2018-07-29 12:25 | NUR ---
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
--- NOTE | 2018-07-29 13:02 | NUR ---
BRIM BLOCKER NOTES PT ACCEPTED TO [facility] ROOM [address] BED A. [facility] TO TRANSPORT PT.
--- NOTE | 2018-07-29 13:13 | NUR ---
*-* DISCHARGE PLANNED *-* PATIENT IS DISCHARGED TO: [facility] ROOM# 121-A SKILLED NURSING T:[phone] FOR NURSE TO NURSE REPORT [facility] HAS BEEN ARRANGED FOR PHYSICIAN PRACTICE ADMINISTRATOR AT [address] [id number]
--- NOTE | 2018-07-29 13:13 | NUR ---
*-* DISCHARGE PLANNING *-* PATIENT HAS BEEN REFERRED BACK TO: [facility] P:[phone] F: [phone]
--- NOTE | 2018-07-30 01:33 | Cardiology Report ---
APPROVED REPORT EKG Measurement Heart [id number] Normal sinus rhythm Low voltage QRS Borderline ECG
--- NOTE | 2018-07-30 17:45 | Discharge Summary ---
DATE OF ADMISSION: 07/26/2018 DATE OF DISCHARGE: 07/29/2018 HOSPITAL COURSE: This is an elderly male patient who came to the hospital for UTI, dehydration, abdominal pain, and dermatitis. The patient has received IV antibiotics and IV fluids, and thus has clinically improved. He is going to go back to the residential and follow up as an outpatient. DISCHARGE DIAGNOSES: 1. UTI. 2. Dehydration. 3. . 4. Abdominal pain, resolved. DIET: He is on regular diet. ACTIVITY: As tolerated. DISCHARGE MEDICATIONS: The patient is to continue IV antibiotics and IV fluids. Continue residential management. Vincent Foote M.D. DR: DEWAYNE JOB#: [id number] CC:
== END 2018-07-29 12:32 | DRG 690 ==
LOC: EDBD 19:54 → EMR 20:20 → 3E 07-26 00:15 → EDBEDREQ 07-26 01:50
DX: N39.0 Urinary tract infection, site not specified (principal); E46 Unspecified protein-calorie malnutrition; E86.0 Dehydration; Z86.73 Personal history of transient ischemic attack (TIA), and cerebral infarction without residual deficits; E78.5 Hyperlipidemia, unspecified; L20.9 Atopic dermatitis, unspecified; R10.9 Unspecified abdominal pain; Z68.29 Body mass index [BMI] 29.0-29.9, adult
CPT/HCPCS: 36415; 71045; 74018; 74177; 80053; 81003; 82550; 83605; 83690; 83880; 84484; 85025; 85610; 85730; 87081; 93005; 99285; J8499

== ENCOUNTER 2019-09-12 16:46 | Inpatient (IN) | payer MEDICARE, MEDICAID ==
[~2019-09-12] VITALS: Ht 180.3 cm; Wt 76.9 kg
[~2019-09-12 16:46] MED LIST changes: +AMLODIPINE BESY10 MG ORAL; +BENADRYL A12.5 MG/5 ORAL; +BRIMONIDINE TART5 ML BOTH EYES; +FUROSEMIDE40 MG ORAL; +MIRALAX17 G2 ORAL; +POTASSIUM99 M3 PO; +PREPARATION H1 EAC1 TP
[2019-09-12] MEDS ORDERED: Cefepime HCl 2 GM in D5W 55 ML IVPB ONE (17:00)
[2019-09-12] MEDS ORDERED: TUBERSOL (PPD)0.1 ML IDERMAL (17:04)
[2019-09-12] MEDS ORDERED: VITAMIN C500 M1 ORAL (17:04)
[2019-09-12] MEDS ORDERED: MULTIVITAMINS1 EAC8 ORAL (17:04)
[2019-09-12] MEDS ORDERED: MAGNESIUM400 M1 PO (17:04)
[2019-09-12] MEDS ORDERED: BRIMONIDINE TART5 ML BOTH EYES (17:04)
[2019-09-12] MEDS ORDERED: IBUPROFEN600 M1 ORAL (17:04)
--- NOTE | 2019-09-12 17:07 | Emergency Room Report ---
History of Present Illness General Chief Complaint: General Complaint Source: Patient, Family Member Present Illness HPI 83-year-old male history of stroke history of hemiparesis history of complicated UTI presents with cough, shortness of breath, fever/chills x1 day no aggravating relieving factors severity is moderate, constant, patient is coming from [facility] there is concern for COVID exposure patient was sent to the ED for evaluation Allergies: Coded Allergies: No Known Allergies (Unverified , 09/03/14) COVID-19 Screening Contact w/high risk pt: No Recent Travel to affected area: No Experienced COVID-19 symptoms?: Yes COVID-19 symptoms experienced: Fever (T>100.4F or >38C), Shortness of Breath, Cough Patient History Past Medical History: see triage record Reviewed Nursing Documentation: PMH: Agreed; PSxH: Agreed Nursing Documentation-PMH Past Medical History: No History, Except For Hx Cardiac Problems: Yes - UTI, cough, Hemiplegia Hx Hypertension: Yes Hx Cancer: Yes - BPH Hx Gastrointestinal Problems: Yes - GERD Hx Neurological Problems: Yes Hx Cerebrovascular Accident: Yes Hx Weakness: Yes Review of Systems All Other Systems: negative except mentioned in HPI Physical Exam Vital Signs Date Time Temp Pulse Resp B/P (MAP) Pulse Ox O2 Delivery O2 Flow Rate FiO2 09/12/19 16:45 100.9 79 18 141/67 (91) 88 Room Air Sp02 EP Interpretation: reviewed, normal General Appearance: well appearing, no apparent distress, alert Head: normocephalic, atraumatic Eyes: bilateral eye PERRL, bilateral eye EOMI ENT: uvula midline, moist mucus membranes Neck: supple, thyroid normal, supple/symm/no masses Respiratory: lungs clear, no respiratory distress, no retraction, no accessory muscle use Cardiovascular #1: normal peripheral pulses, regular rate, rhythm, no edema, no gallop, no murmur Gastrointestinal: non tender, soft, no guarding, no rebound Musculoskeletal: normal inspection Neurologic: alert, oriented x3 Psychiatric: mood/affect normal Skin: no rash, warm/dry Medical Decision Making Diagnostic Impression: Primary Impression: Fever Qualified Codes: R50.9 - Fever, unspecified Additional Impressions: Suspected COVID-19 virus infection Pneumonia Qualified Codes: J18.9 - Pneumonia, unspecified organism ER Course 83-year-old male multiple comorbidities presents with fever/chills, cough, differential diagnosis includes pneumonia, COVID, ACS Cefepime and Vanco started, liter of NS was started Patient was found to have a pneumonia on x-ray will treat with cefepime and vancomycin Patient admitted to Dr. Foote Laboratory Tests Test 09/12/19 17:00 White Blood Count 7.8 K/UL (4.8-10.8) Red Blood Count 5.25 M/UL (4.70-6.10) Hemoglobin 15.7 G/DL (14.2-18.0) Hematocrit 48.9 % (42.0-52.0) Mean Corpuscular Volume 93 FL (80-99) Mean Corpuscular Hemoglobin 29.8 PG (27.0-31.0) Mean Corpuscular Hemoglobin Concent 32.1 G/DL (32.0-36.0) Red Cell Distribution Width 13.4 % (11.6-14.8) Platelet Count 185 K/UL (150-450) Mean Platelet Volume 6.4 FL (6.5-10.1) L Neutrophils (%) (Auto) 55.1 % (45.0-75.0) Lymphocytes (%) (Auto) 36.5 % (20.0-45.0) Monocytes (%) (Auto) 7.4 % (1.0-10.0) Eosinophils (%) (Auto) 0.5 % (0.0-3.0) Basophils (%) (Auto) 0.6 % (0.0-2.0) Urine Color Yellow Urine Appearance Clear Urine pH 6 (4.5-8.0) Urine Specific [place] 1.015 (1.005-1.035) Urine Protein 1+ (NEGATIVE) H Urine Glucose (UA) Negative (NEGATIVE) Urine Ketones Negative (NEGATIVE) Urine Blood 2+ (NEGATIVE) H Urine Nitrite Negative (NEGATIVE) Urine Bilirubin Negative (NEGATIVE) Urine Urobilinogen Normal MG/DL (0.0-1.0) Urine Leukocyte Esterase Negative (NEGATIVE) Urine RBC 2-4 /HPF (0 - 0) H Urine WBC 0-2 /HPF (0 - 0) Urine Squamous Epithelial Cells Few /LPF (NONE/OCC) Urine Bacteria Few /HPF (NONE) Sodium Level 140 MMOL/L (136-145) Potassium Level 4.6 MMOL/L (3.5-5.1) Chloride Level 104 MMOL/L (98-107) Carbon Dioxide Level 27 MMOL/L (21-32) Anion Gap 9 mmol/L (5-15) Blood Urea Nitrogen 18 mg/dL (7-18) Creatinine 0.9 MG/DL (0.55-1.30) Estimated Glomerular Filtration Rate > 60 mL/min (>60) Glucose Level 145 MG/DL (74-106) H Lactic Acid Level 1.10 mmol/L (0.4-2.0) Calcium Level 8.2 MG/DL (8.5-10.1) L Phosphorus Level 3.0 MG/DL (2.5-4.9) Magnesium Level 2.4 MG/DL (1.8-2.4) Total Bilirubin 0.4 MG/DL (0.2-1.0) Aspartate Amino Transferase (AST) 37 U/L (15-37) Alanine Aminotransferase (ALT) 34 U/L (12-78) Alkaline Phosphatase 80 U/L (46-116) Troponin I 0.000 ng/mL (0.000-0.056) Pro-B-Type Natriuretic Peptide Pending Total Protein 7.7 G/DL (6.4-8.2) Albumin 3.1 G/DL (3.4-5.0) L Globulin 4.6 g/dL Albumin/Globulin Ratio 0.7 (1.0-2.7) L Lipase 112 U/L (73-393) EKG Diagnostic Results EKG Time: 17:08 EP Interpretation: NSR, rate 76, QTc 402, no acute ST elevations, normal axis Rhythm Strip Diag. Results Rhythm Strip Time: 17:12 EP Interpretation: yes Rate: 76 Rhythm: NSR, no PVC's, no ectopy Chest X-Ray Diagnostic Results Chest X-Ray Diagnostic Results : Chest X-Ray Ordered: Yes # of Views/Limited/Complete: 1 View Indication: Shortness of Breath EP Interpretation: Yes Interpretation: other - Consolidation Impression: Other - Right upper lobe consolidation Last Vital Signs Date Time Temp Pulse Resp B/P (MAP) Pulse Ox O2 Delivery O2 Flow Rate FiO2 09/12/19 16:45 100.9 79 18 141/67 (91) 88 Room Air Disposition: ADMITTED INPATIENT Condition: Stable Jay Jay Diego MD Sep 12, 2019 17:07
[2019-09-12] MEDS ORDERED: Vancomycin 1.5gm/NS Premix 275 ML IVPB SCH (17:15)
[2019-09-12] MEDS ORDERED: Acetaminophen 500mg (ES) tab ORAL ONE (17:15)
[2019-09-12] MEDS ORDERED: Vancomycin 1.5gm/NS Premix 275 ML IVPB ONE (17:15)
[2019-09-12 17:16] VITALS: BP 141/67
--- NOTE | 2019-09-12 17:20 | NUR ---
ED Nurse Note: Patient was brought in to ER by CHRISTINE from [facility] due to fever 101F this morning and cough x 1 week. Patient presented calm, weak pt's temop 101.8 at bed side, other VSS at thism time. IV established at left AC 20 ga, patient was conected to the monitor, will continue to monitor.
[2019-09-12 17:25] LABS: APPEARANCE,URINE CLEAR; BILIRUBIN, URINE NEGATIVE (NEGATIVE); GLUCOSE, URINE (UA) NEGATIVE (NEGATIVE); KETONES,URINE NEGATIVE (NEGATIVE); LEUKOCYTE ESTERASE ,URINE NEGATIVE (NEGATIVE); NITRITE,URINE NEGATIVE (NEGATIVE); PH,URINE 6 (4.5-8.0); PROTEIN,URINE 1+ (NEGATIVE); UROBILINOGEN,URINE NORMAL MG/DL (0.0-1.0)
[2019-09-12] MEDS ORDERED: Vancomycin 1.5gm vial IVPB ONE (17:31)
[2019-09-12 17:34] LABS: BASOPHILS % (AUTO) 0.6 % (0.0-2.0); EOSINOPHILS % (AUTO) 0.5 % (0.0-3.0); HEMATOCRIT 48.9 % (42.0-52.0); HEMOGLOBIN 15.7 G/DL (14.2-18.0); LYMPHOCYTES % (AUTO) 36.5 % (20.0-45.0); MEAN CORPUSCULAR VOLUME 93 FL (80-99); MONOCYTES % (AUTO) 7.4 % (1.0-10.0); NEUTROPHILS % (AUTO) 55.1 % (45.0-75.0); PLATELET COUNT 185 K/UL (150-450); RED BLOOD COUNT 5.25 M/UL (4.70-6.10); RED CELL DISTRIBUTION WIDTH 13.4 % (11.6-14.8); WHITE BLOOD COUNT 7.8 K/UL (4.8-10.8)
[2019-09-12 17:41] LABS: COLOR,URINE YELLOW
[2019-09-12 17:48] LABS: ANION GAP 9 mmol/L (5-15); BLOOD UREA NITROGEN 18 mg/dL (7-18); CALCIUM 8.2 MG/DL (8.5-10.1); CARBON DIOXIDE 27 MMOL/L (21-32); CHLORIDE 104 MMOL/L (98-107); CREATININE 0.9 MG/DL (0.55-1.30); POTASSIUM 4.6 MMOL/L (3.5-5.1); SODIUM 140 MMOL/L (136-145)
[2019-09-12 17:50] LABS: ALANINE AMINOTRANSFERASE 34 U/L (12-78); ALBUMIN 3.1 G/DL (3.4-5.0); ASPARTATE AMINO TRANSFERASE 37 U/L (15-37); BILIRUBIN,TOTAL 0.4 MG/DL (0.2-1.0)
[2019-09-12 17:51] LABS: ALBUMIN/GLOBULIN RATIO 0.7 (1.0-2.7); ALKALINE PHOSPHATASE 80 U/L (46-116)
--- NOTE | 2019-09-12 18:06 | Diagnostic Imaging Report ---
EXAM: XR Chest, 1 View CLINICAL HISTORY: COUGH TECHNIQUE: Frontal view of the chest. COMPARISON: Chest x-ray 07/25/2018 FINDINGS: Lungs: Right infrahilar opacity, atelectasis versus infiltrate. Pleural space: No pleural effusion. No pneumothorax. Heart: Unremarkable. No cardiomegaly. IMPRESSION: Right infrahilar opacity, atelectasis versus infiltrate.
[2019-09-12 19:05] VITALS: BP 122/68
--- NOTE | 2019-09-12 19:09 | NUR ---
ED Nurse Note: received report from Leatha TREVIÑO. Will resume care of patient. vss, nad. pt is calm and sleeping at this time
[2019-09-12 20:30] VITALS: BP 116/47
--- NOTE | 2019-09-12 21:05 | NUR ---
ED Nurse Note: gave report to Varsha TREVIÑO
--- NOTE | 2019-09-12 21:30 | NUR ---
TRANSFER TO FLOOR: Patient transferred to [facility] via gurney accompanied by 1 tech via transport 19 protocol in stable condition as ordered, per dr. Clark. Report given to Varsha TREVIÑO. Belongings sent with patient.
--- NOTE | 2019-09-12 21:46 | NUR ---
NURSE NOTES: Received patient from ED via gurney, patient is awake, alert/oriented x2, speaks Armenian, droplet precautions are implemented, IV site is clean dry and intact, no skin issues noted, oriented to the room, belongings list verified. Obtained admit orders from MD. Call light is within reach, bed is lowered, locked, alarm is on, will continue to monitor for comfort and safety.
[2019-09-12] MEDS ORDERED: Albuterol/Ipratropium 3ml neb HHN PRN (22:15)
[2019-09-12] MEDS ORDERED: guaiFENesin 100mg/5ml Liq ud ORAL PRN (22:30)
[2019-09-13] VITALS: BP 128/64
[2019-09-13 04:00] VITALS: BP 140/64
[2019-09-13 08:00] VITALS: BP 148/60
--- NOTE | 2019-09-13 08:00 | NUR ---
NURSE NOTES: Received report from Raeann TREVIÑO. Patient is awake and oriented, no acute distress noted, reporting no pain. IVF running per order, patient not reporting any SOB, patient has dry cough, on 2L NC. On isolation for r/o COVID. Needs met at thie time. Side rails upx3, bed low and locked, call light within reach, bed alarm armed.
[2019-09-13] MEDS ORDERED: cefTRIAXone 1 GM in D5W 55 ML IVPB SCH (09:00)
[2019-09-13] MEDS: Ascorbic Acid 500mg tab ORAL SCH (09:28)
[2019-09-13] MEDS: Multivitamin w/Minerals tab ORAL SCH (09:28)
[2019-09-13] MEDS: Furosemide 40mg tab ORAL SCH (09:28)
[2019-09-13] MEDS: Metoprolol Tartrate 100mg tab ORAL SCH (09:28)
[2019-09-13] MEDS: Docusate 100mg cap ORAL SCH ×2 (09:28→18:50)
[2019-09-13] MEDS: Miralax 17gm pkt ORAL SCH (09:28)
[2019-09-13] MEDS: Brimonidine 0.2% Opth Sol BOTH EYES SCH ×2 (09:29→18:00)
[2019-09-13] MEDS: Azithromycin 500 MG in D5W 275 ML IVPB SCH (09:29)
--- NOTE | 2019-09-13 10:38 | NUR ---
NURSE NOTES: Wound care orders placed per protocol for sacral DTI.
[2019-09-13 12:03] VITALS: BP 135/72
[2019-09-13 16:03] VITALS: BP 127/82
--- NOTE | 2019-09-13 16:30 | Consultation ---
DATE OF CONSULTATION: 09/13/2019 PULMONARY CONSULTATION HISTORY OF PRESENT ILLNESS: This is an 83-year-old male with history of previous CVA. He came to the hospital with cough and shortness of breath. He also was reported to be febrile. He is a assisted resident and apparently there have been other residents who tested positive for COVID-19. The patient reported mild shortness of breath. PAST MEDICAL HISTORY: Notable for previous UTIs, CVA, BPH, GERD. HOME MEDICATIONS: Reviewed and reconciled in chart. REVIEW OF SYSTEMS: Unreliable. PHYSICAL EXAMINATION: GENERAL: Reveals a 83-year-old male. VITAL SIGNS: Blood pressure 140/60, heart rate 74, respiratory rate 20, O2 saturation 92% HEENT: Unremarkable. LUNGS: Decreased breath sounds bilaterally with normal heart sounds. ABDOMEN: Soft. EXTREMITIES: There is no edema. LABORATORY DATA: Lab testing shows normal CBC and BMP, glucose 145. Urinalysis shows few wbc's. Microbiology is negative so far. IMAGING STUDIES: X-ray of chest was obtained, which shows right infrahilar opacity, possibly infiltrate. IMPRESSION: 1. History of previous UTI. 2. Bronchitis. 3. Rule out COVID-19. 4. CVA. DISCUSSION: Admitted to the hospital. The patient is a assisted resident. Agree with broad-spectrum antibiotics. Await PCR for COVID-19. Currently the patient is on azithromycin and Rocephin, which is adequate. We will follow carefully. Order oxygen and pulmonary hygiene. Yandel Yap M.D. DR: Silvio JOB#: [id number] CC: ANDREIA
[2019-09-13] MEDS: cefTRIAXone 1 GM in D5W 55 ML IVPB SCH (18:50)
--- NOTE | 2019-09-13 19:34 | NUR ---
HAND-OFF: Report given to Yusra TREVIÑO.
[2019-09-13 20:00] VITALS: BP 137/87
--- NOTE | 2019-09-13 20:00 | NUR ---
NURSE NOTES: Received patient awake in bed, able to verbalize needs, patient wants room door to stay open, re-educated on isolation precautions. IV access intact, running IVF maintenance. Patient wet, bed bath and linen changed.
[2019-09-14] VITALS: BP 135/66
--- NOTE | 2019-09-14 03:15 | Progress Note ---
DATE: 09/13/2019 SUBJECTIVE: This is an 83-year-old male, currently feeling better. Fever has subsided. The patient is currently still feeling weak. PHYSICAL EXAMINATION: VITAL SIGNS: Blood pressure is 130/70, pulse 74, respirations 18, no fever. HEENT: NAD. CHEST: Bilaterally clear. CARDIOVASCULAR: Regular rhythm. No gallop. No murmur. ABDOMEN: Soft. EXTREMITIES: CCE. NEUROLOGICAL: The patient has no focal deficit. GENITOURINARY: Deferred. ASSESSMENT AND PLAN: 1. Pneumonia. 2. Fever. 3. Sepsis. 4. Encephalopathy. 5. We will admit on tele bed. 6. Continue IV fluid, IV antibiotic, bronchodilator treatment. Pulmonary and ID is on consult. Vincent Foote M.D. DR: RAMYA JOB#: [id number] CC:
[2019-09-14 04:00] VITALS: BP 132/64
--- NOTE | 2019-09-14 07:41 | NUR ---
NURSE NOTES: Patient alert x4; on Nasal Cannula 2 Liters, no sing of distress and shortness of breath; no sing of chest pain; IV Right AC NS @75cc; side rails up x2, breaks engaged, bed at lowest position; call light within reach;
--- NOTE | 2019-09-14 07:42 | NUR ---
HAND-OFF: Report given to KAMILA Lomeli.
[2019-09-14 08:00] VITALS: BP 135/72
[2019-09-14] MEDS: Brimonidine 0.2% Opth Sol BOTH EYES SCH ×2 (08:52→18:42)
[2019-09-14] MEDS: Azithromycin 500 MG in D5W 275 ML IVPB SCH (08:52)
[2019-09-14] MEDS: Furosemide 40mg tab ORAL SCH (08:53)
[2019-09-14] MEDS: Docusate 100mg cap ORAL SCH ×2 (08:53→17:41)
[2019-09-14] MEDS: Multivitamin w/Minerals tab ORAL SCH (08:53)
[2019-09-14] MEDS: Miralax 17gm pkt ORAL SCH (08:53)
[2019-09-14] MEDS: Metoprolol Tartrate 100mg tab ORAL SCH (08:53)
[2019-09-14] MEDS: Ascorbic Acid 500mg tab ORAL SCH (09:00)
--- NOTE | 2019-09-14 10:41 | Pulmonology Progress Note ---
Assessment/Plan Assessment/Plan IMPRESSION: 1. History of previous UTI. 2. Bronchitis. 3. Rule out COVID-19. 4. CVA. DISCUSSION: The patient is a snf resident. Agree with broad-spectrum antibiotics. Await PCR for COVID-19. Currently the patient is on azithromycin and Rocephin, which is adequate. I will follow carefully. Ordered oxygen and pulmonary hygiene. Yandel Yap M.D. Subjective Interval Events: None new Constitutional: Reports: no symptoms HEENT: Repors: no symptoms Respiratory: Reports: no symptoms Cardiovascular: Reports: no symptoms Gastrointestinal/Abdominal: Reports: no symptoms Allergies: Coded Allergies: No Known Allergies (Unverified , 09/03/14) Objective Last 24 Hour Vital Signs Date Time Temp Pulse Resp B/P (MAP) Pulse Ox O2 Delivery O2 Flow Rate FiO2 09/14/19 08:53 91 135/72 09/14/19 08:53 91 135/72 09/14/19 08:00 98.0 91 18 135/72 (93) 93 09/14/19 04:00 98.7 89 18 132/64 (86) 91 09/14/19 00:00 97.9 89 18 135/66 (89) 92 09/13/19 21:13 Nasal Cannula 2.0 09/13/19 20:00 98.9 82 18 137/87 (104) 95 09/13/19 16:03 98.3 81 18 127/82 (97) 96 09/13/19 12:03 98.6 79 18 135/72 (93) 95 Intake and Output 09/13/19 09/14/19 19:00 07:00 Intake Total 1900 ml 250 ml Balance 1900 ml 250 ml Intake Oral 800 ml IV Total 1100 ml Other 250 ml # Voids 3 2 # Bowel Movements 2 General Appearance: no acute distress HEENT: normocephalic Respiratory/Chest: chest wall non-tender, lungs clear Cardiovascular: normal peripheral pulses Abdomen: normal bowel sounds Microbiology Date/Time Source Procedure Growth Status 09/12/19 17:00 Blood Blood Culture - Preliminary NO GROWTH AFTER 24 HOURS Resulted 09/12/19 16:45 Blood Blood Culture - Preliminary NO GROWTH AFTER 24 HOURS Resulted 09/12/19 17:40 Nasal Nares MRSA Culture - Final NO METHICILLIN RESISTANT STAPH AUREUS... Complete 09/12/19 17:40 Rectum VRE Culture - Final NO VANCOMYCIN RESISTANT ENTEROCOCCUS ... Complete Current Medications Medications (Trade) Dose Ordered Sig/Yaz Route PRN Reason Start Time Stop Time Status Last Admin Dose Admin Acetaminophen (Tylenol) 650 mg Q4H PRN ORAL Mild Pain (Pain Scale 1-3) 09/12/19 22:15 10/12/19 22:14 Albuterol/ Ipratropium (Combivent Respimat) 1 puff Q4H PRN INH SOB/WHEEZING 09/12/19 22:45 10/12/19 22:44 Amlodipine Besylate (Norvasc) 10 mg DAILY ORAL 09/13/19 09:00 10/13/19 08:59 09/14/19 08:53 Ascorbic Acid (Vitamin C) 500 mg DAILY ORAL 09/13/19 09:00 10/13/19 08:59 09/14/19 09:00 Azithromycin 500 mg/Dextrose 275 ml @ 275 mls/hr DAILY IVPB 09/13/19 09:00 09/19/19 09:59 09/14/19 08:52 Brimonidine Tartrate (Alphagan) 1 drop TWICE A DAY BOTH EYES 09/13/19 09:00 12/12/19 08:59 09/14/19 08:52 Ceftriaxone Sodium 1 gm/ Dextrose 55 ml @ 110 mls/hr Q24H IVPB 09/13/19 18:00 09/20/19 17:59 09/13/19 18:50 Docusate Sodium (Colace) 100 mg BID ORAL 09/13/19 09:00 10/13/19 08:59 09/14/19 08:53 Furosemide (Lasix) 40 mg DAILY ORAL 09/13/19 09:00 10/13/19 08:59 09/14/19 08:53 Gabapentin (Neurontin) 300 mg THREE TIMES A DAY ORAL 09/13/19 09:00 10/13/19 08:59 09/14/19 08:53 Guaifenesin (Robitussin) 200 mg Q4H PRN ORAL For Cough 09/12/19 22:30 12/11/19 22:29 Ibuprofen (Motrin) 600 mg Q6H PRN ORAL For Pain 09/12/19 22:30 10/12/19 22:29 Metoprolol Tartrate (Lopressor) 100 mg DAILY ORAL 09/13/19 09:00 12/12/19 08:59 09/14/19 08:53 Multivitamins Therapeutic (Therapeutic Multivitamin) 1 ea DAILY ORAL 09/13/19 09:00 10/13/19 08:59 09/14/19 08:53 Pantoprazole (Protonix) 40 mg DAILY ORAL 09/13/19 09:00 10/13/19 08:59 09/14/19 08:53 Polyethylene Glycol (Miralax) 17 gm DAILY ORAL 09/13/19 09:00 10/13/19 08:59 09/14/19 08:53 Sodium Chloride 1,000 ml @ 75 mls/hr [id number] IV 09/12/19 22:15 10/12/19 22:14 09/14/19 00:55 Yandel Yap MD Sep 14, 2019 10:41
--- NOTE | 2019-09-14 11:07 | Infectious Diseases Prog Note ---
Assessment/Plan Assessment/Plan antibiotics : ceftriaxone, azithromycin A 1. r/o COVID 19 pneumonia 2. bronchitis 3. CVA P 1. continue ceftriaxone, azithromycin 2. will follow up cultures 3. COVID 19 pending Subjective ROS Limited/Unobtainable: Yes Allergies: Coded Allergies: No Known Allergies (Unverified , 09/03/14) Objective Vital Signs Last 24 Hour Vital Signs Date Time Temp Pulse Resp B/P (MAP) Pulse Ox O2 Delivery O2 Flow Rate FiO2 09/14/19 09:00 Nasal Cannula 2.0 09/14/19 08:53 91 135/72 09/14/19 08:53 91 135/72 09/14/19 08:00 98.0 91 18 135/72 (93) 93 09/14/19 04:00 98.7 89 18 132/64 (86) 91 09/14/19 00:00 97.9 89 18 135/66 (89) 92 09/13/19 21:13 Nasal Cannula 2.0 09/13/19 20:00 98.9 82 18 137/87 (104) 95 09/13/19 16:03 98.3 81 18 127/82 (97) 96 09/13/19 12:03 98.6 79 18 135/72 (93) 95 Height (Feet): 5 Height (Inches): 11.00 Weight (Pounds): 200 Microbiology Date/Time Source Procedure Growth Status 09/12/19 17:00 Blood Blood Culture - Preliminary NO GROWTH AFTER 24 HOURS Resulted 09/12/19 16:45 Blood Blood Culture - Preliminary NO GROWTH AFTER 24 HOURS Resulted 09/12/19 17:40 Nasal Nares MRSA Culture - Final NO METHICILLIN RESISTANT STAPH AUREUS... Complete 09/12/19 17:40 Rectum VRE Culture - Final NO VANCOMYCIN RESISTANT ENTEROCOCCUS ... Complete Current Medications Medications (Trade) Dose Ordered Sig/Yaz Route PRN Reason Start Time Stop Time Status Last Admin Dose Admin Acetaminophen (Tylenol) 650 mg Q4H PRN ORAL Mild Pain (Pain Scale 1-3) 09/12/19 22:15 10/12/19 22:14 Albuterol/ Ipratropium (Combivent Respimat) 1 puff Q4H PRN INH SOB/WHEEZING 09/12/19 22:45 10/12/19 22:44 Amlodipine Besylate (Norvasc) 10 mg DAILY ORAL 09/13/19 09:00 10/13/19 08:59 09/14/19 08:53 Ascorbic Acid (Vitamin C) 500 mg DAILY ORAL 09/13/19 09:00 10/13/19 08:59 09/14/19 09:00 Azithromycin 500 mg/Dextrose 275 ml @ 275 mls/hr DAILY IVPB 09/13/19 09:00 09/19/19 09:59 09/14/19 08:52 Brimonidine Tartrate (Alphagan) 1 drop TWICE A DAY BOTH EYES 09/13/19 09:00 12/12/19 08:59 09/14/19 08:52 Ceftriaxone Sodium 1 gm/ Dextrose 55 ml @ 110 mls/hr Q24H IVPB 09/13/19 18:00 09/20/19 17:59 09/13/19 18:50 Docusate Sodium (Colace) 100 mg BID ORAL 09/13/19 09:00 10/13/19 08:59 09/14/19 08:53 Furosemide (Lasix) 40 mg DAILY ORAL 09/13/19 09:00 10/13/19 08:59 09/14/19 08:53 Gabapentin (Neurontin) 300 mg THREE TIMES A DAY ORAL 09/13/19 09:00 10/13/19 08:59 09/14/19 08:53 Guaifenesin (Robitussin) 200 mg Q4H PRN ORAL For Cough 09/12/19 22:30 12/11/19 22:29 Ibuprofen (Motrin) 600 mg Q6H PRN ORAL For Pain 09/12/19 22:30 10/12/19 22:29 Metoprolol Tartrate (Lopressor) 100 mg DAILY ORAL 09/13/19 09:00 12/12/19 08:59 09/14/19 08:53 Multivitamins Therapeutic (Therapeutic Multivitamin) 1 ea DAILY ORAL 09/13/19 09:00 10/13/19 08:59 09/14/19 08:53 Pantoprazole (Protonix) 40 mg DAILY ORAL 09/13/19 09:00 10/13/19 08:59 09/14/19 08:53 Polyethylene Glycol (Miralax) 17 gm DAILY ORAL 09/13/19 09:00 10/13/19 08:59 09/14/19 08:53 Sodium Chloride 1,000 ml @ 75 mls/hr [id number] IV 09/12/19 22:15 10/12/19 22:14 09/14/19 00:55 Maxi King MD Sep 14, 2019 11:07
[2019-09-14 12:00] VITALS: BP 144/72
--- NOTE | 2019-09-14 15:36 | NUR ---
CASE MANAGEMENT: REVIEW 83 YEAR OLD FEMALE BIBA FROM [facility] CC: SOB . FEVER 101.0 . COUGH X1 WK SI: COVID-19 PNA R/O . T 101.8 HR 79 RR 17 BP 141/67 SAT 88% ROOM AIR .. 92% 2L/NC GLUCOSE 145 CALCIUM 8.2 BLOOD CX PENDING COVID-19 PENDING IS: TYLENOL 1,000MG PO X1 VANCO IV X1 CEFEPIME IV X1 NS IVF BOLUS X1 PATIENT ADMITTED TO MED/SURG UNIT 09/12/2019 DCP: PATIENT IS FROM [facility]
--- NOTE | 2019-09-14 15:40 | NUR ---
NURSE NOTES:WOUND CARE NOTES:Pt presented on admission with Partial thickness shearing with surrounding non-blanchable erythema R and L gluteal cheeks and cleft of buttocks. Non-blanching erythema R and L heels. Tx.Plan: Apply Moisture Barrier Paste To R and L Gluteal Cheeks and cleft of buttocks. Cover with Optifoam drsg. Change every 3 days and prn. Apply Cavilon Skin Barrier to both heels. Cover each heel with Optifoam drsg. Change every 7 days and prn. Reposition at least every 2hours or as tolerated. Off-load heels with pillow.
[2019-09-14 16:00] VITALS: BP 134/79
[2019-09-14] MEDS: cefTRIAXone 1 GM in D5W 55 ML IVPB SCH (17:41)
--- NOTE | 2019-09-14 19:32 | NUR ---
HAND-OFF: Report given to KAMILA Emmanuel.
[2019-09-14 20:00] VITALS: BP 127/87
--- NOTE | 2019-09-14 20:25 | NUR ---
NURSE NOTES: Received patient awake in bed, able to verbalize needs, given 2 more blankets per patient request, patient wants room door to stay open, re-educated on isolation precautions. IV access intact, running IVF maintenance.
[2019-09-15] VITALS: BP 132/85
--- NOTE | 2019-09-15 01:29 | Progress Note ---
DATE: 09/14/2019 SUBJECTIVE: This is an elderly male who is currently in the bed and comfortable, in no distress. The patient has no fever. OBJECTIVE: VITAL SIGNS: Blood pressure is 130/70, pulse 74, respirations 18, no fever. HEENT: NAD. CHEST: Bilateral crackles. CARDIOVASCULAR: Regular rhythm. No gallop. No murmur. ABDOMEN: Soft. Positive bowel sounds. Nontender. EXTREMITIES: CCE. ASSESSMENT/PLAN: 1. Fever, rule out sepsis. 2. Rule out exposure for COVID. 3. CVA. 4. Hypertension. 5. Chronic back pain. PLAN: The patient is currently on medical floor. Continue IV antibiotics. Discontinue IV fluid. COVID results are pending. Continue home medications and continue supportive treatment. Vincent Foote M.D. DR: MARIS JOB#: [id number] CC:
--- NOTE | 2019-09-15 07:11 | NUR ---
HAND-OFF: Report given to KAMILA Lomeli.
--- NOTE | 2019-09-15 07:20 | NUR ---
NURSE NOTES: Patient awake, alert x4, Argentine speaking; on Nasal Cannula 2 Liters, no sing of distress and shortness of breath; no sing of chest pain; IV Right AC NS 75cc running; side rails up x2, breaks engaged, bed at lowest level, bed alarm on; call light within reach; will keep monitoring.
--- NOTE | 2019-09-15 07:31 | NUR ---
NURSE NOTES: Dr Foote acknowledged patient's new Covid positive status. No new orders received.
[2019-09-15 08:00] VITALS: BP 119/70
[2019-09-15] MEDS: Ascorbic Acid 500mg tab ORAL SCH (09:27)
[2019-09-15] MEDS: Furosemide 40mg tab ORAL SCH (09:27)
[2019-09-15] MEDS: Multivitamin w/Minerals tab ORAL SCH (09:27)
[2019-09-15] MEDS: Azithromycin 500 MG in D5W 275 ML IVPB SCH (09:28)
[2019-09-15] MEDS: Miralax 17gm pkt ORAL SCH (09:28)
[2019-09-15] MEDS: Metoprolol Tartrate 100mg tab ORAL SCH (09:28)
[2019-09-15] MEDS: Docusate 100mg cap ORAL SCH ×2 (09:28→17:38)
[2019-09-15] MEDS: Brimonidine 0.2% Opth Sol BOTH EYES SCH ×2 (09:29→17:38)
--- NOTE | 2019-09-15 11:33 | Pulmonology Progress Note ---
Assessment/Plan Assessment/Plan IMPRESSION: 1. History of previous UTI. 2. Bronchitis. 3. Positive COVID-19. 4. CVA. DISCUSSION: The patient is a assisted resident. Agree with broad-spectrum antibiotics. Has positive PCR for COVID-19. Currently the patient is on azithromycin and Rocephin, which is adequate. I will follow carefully. Ordered oxygen and pulmonary hygiene. Yandel Yap M.D. Subjective Interval Events: None new Constitutional: Reports: no symptoms HEENT: Repors: no symptoms Respiratory: Reports: no symptoms Cardiovascular: Reports: no symptoms Gastrointestinal/Abdominal: Reports: no symptoms Genitourinary: Reports: no symptoms Allergies: Coded Allergies: No Known Allergies (Unverified , 09/03/14) Objective Last 24 Hour Vital Signs Date Time Temp Pulse Resp B/P (MAP) Pulse Ox O2 Delivery O2 Flow Rate FiO2 09/15/19 09:28 90 119/70 09/15/19 09:27 90 119/70 09/15/19 09:00 Nasal Cannula 2.0 09/15/19 08:00 99.2 90 20 119/70 (86) 95 09/15/19 00:00 98.7 77 17 132/85 (101) 99 09/14/19 21:37 Nasal Cannula 2.0 09/14/19 20:00 98.3 85 18 127/87 (100) 99 09/14/19 16:00 97.9 76 18 134/79 (97) 98 09/14/19 12:00 98.1 89 19 144/72 (96) 94 Intake and Output 09/14/19 09/15/19 19:00 07:00 Intake Total 1725 ml 895 ml Balance 1725 ml 895 ml Intake Oral 150 ml IV Total 825 ml 745 ml Other 900 ml # Voids 2 General Appearance: no acute distress HEENT: normocephalic Respiratory/Chest: chest wall non-tender Cardiovascular: normal peripheral pulses Abdomen: normal bowel sounds Microbiology Date/Time Source Procedure Growth Status 09/12/19 17:00 Blood Blood Culture - Preliminary NO GROWTH AFTER 48 HOURS Resulted 09/12/19 16:45 Blood Blood Culture - Preliminary NO GROWTH AFTER 48 HOURS Resulted 09/12/19 17:40 Nasal Nares MRSA Culture - Final NO METHICILLIN RESISTANT STAPH AUREUS... Complete 09/12/19 17:00 Nasopharynx Coronavirus COVID-19 PCR ([facility]) - Final Complete 09/12/19 17:40 Rectum - Final NO CARBAPENEM-RESISTANT ENTEROBACTERI... Complete 09/12/19 17:40 Rectum VRE Culture - Final NO VANCOMYCIN RESISTANT ENTEROCOCCUS ... Complete Current Medications Medications (Trade) Dose Ordered Sig/Yaz Route PRN Reason Start Time Stop Time Status Last Admin Dose Admin Acetaminophen (Tylenol) 650 mg Q4H PRN ORAL Mild Pain (Pain Scale 1-3) 09/12/19 22:15 10/12/19 22:14 Albuterol/ Ipratropium (Combivent Respimat) 1 puff Q4H PRN INH SOB/WHEEZING 09/12/19 22:45 10/12/19 22:44 Amlodipine Besylate (Norvasc) 10 mg DAILY ORAL 09/13/19 09:00 10/13/19 08:59 09/15/19 09:27 Ascorbic Acid (Vitamin C) 500 mg DAILY ORAL 09/13/19 09:00 10/13/19 08:59 09/15/19 09:27 Azithromycin 500 mg/Dextrose 275 ml @ 275 mls/hr DAILY IVPB 09/13/19 09:00 09/19/19 09:59 09/15/19 09:28 Brimonidine Tartrate (Alphagan) 1 drop TWICE A DAY BOTH EYES 09/13/19 09:00 12/12/19 08:59 09/15/19 09:29 Ceftriaxone Sodium 1 gm/ Dextrose 55 ml @ 110 mls/hr Q24H IVPB 09/13/19 18:00 09/20/19 17:59 09/14/19 17:41 Docusate Sodium (Colace) 100 mg BID ORAL 09/13/19 09:00 10/13/19 08:59 09/15/19 09:28 Furosemide (Lasix) 40 mg DAILY ORAL 09/13/19 09:00 10/13/19 08:59 09/15/19 09:27 Gabapentin (Neurontin) 300 mg THREE TIMES A DAY ORAL 09/13/19 09:00 10/13/19 08:59 09/15/19 09:27 Guaifenesin (Robitussin) 200 mg Q4H PRN ORAL For Cough 09/12/19 22:30 12/11/19 22:29 Ibuprofen (Motrin) 600 mg Q6H PRN ORAL For Pain 09/12/19 22:30 10/12/19 22:29 Metoprolol Tartrate (Lopressor) 100 mg DAILY ORAL 09/13/19 09:00 12/12/19 08:59 09/15/19 09:28 Multivitamins Therapeutic (Therapeutic Multivitamin) 1 ea DAILY ORAL 09/13/19 09:00 10/13/19 08:59 09/15/19 09:27 Pantoprazole (Protonix) 40 mg DAILY ORAL 09/13/19 09:00 10/13/19 08:59 09/15/19 09:28 Polyethylene Glycol (Miralax) 17 gm DAILY ORAL 09/13/19 09:00 10/13/19 08:59 09/15/19 09:28 Sodium Chloride 1,000 ml @ 75 mls/hr [id number] IV 09/12/19 22:15 10/12/19 22:14 09/14/19 13:13 Yandel Yap MD Sep 15, 2019 11:33
[2019-09-15 12:00] VITALS: BP 135/67
[2019-09-15] MEDS ORDERED: Hydroxychloroquine Fact Sheet MISC SCH (12:00)
--- NOTE | 2019-09-15 12:32 | NUR ---
NURSE NOTES: I called pharmacy and spoke with Jose regarding Hydroxychloroquine; Jose said I need to communicated kodak Stockton MD spoke to the family regarding the treatment of COVID-19 with Hydroxychloroquine; per MD Cardona, patient's daughter Sara agreed with the treatment;
[2019-09-15] MEDS: Hydroxychloroquine 400mg tab ORAL SCH ×2 (12:43→21:07)
--- NOTE | 2019-09-15 14:17 | NUR ---
CASE MANAGEMENT: REVIEW SI: COVID-19 PNA . T 99.5 HR 89 RR 20 BP 135/67 SAT 94% NC/2L IS: NS IVF @75ML/HR PLAQUENIL 200MG PO Q12HR AZITHROMYCIN IV QD CEFTRIAXONE IV Q24HR MED/SURG STATUS DCP: PATIENT IS FROM [facility]
[2019-09-15 16:00] VITALS: BP 124/63
--- NOTE | 2019-09-15 19:26 | NUR ---
HAND-OFF: Report given to KAMILA Fuentes.
--- NOTE | 2019-09-15 19:30 | NUR ---
NURSE NOTES: RECEIVED PATIENT FROM KAMILA ELLINGTON. PATIENT IS AWAKE, AAOX4, ON NC 2L, NO ACUTE DISTRESS NOTED. DENIES SOB. SACRAL WOUND DRESSING INTACT AND DRY. IV ON RIGHT ARM INTACT AND PATENT RUNNING NS @75ML/HR. BED IS LOCKED AND LOW, BED ALARMS ACTIVE, SIDE RAILS UP X2 AND CALL LIGHT IS WITHIN REACH. WILL CONTINUE TO MONITOR.
[2019-09-15 20:00] VITALS: BP 120/58
--- NOTE | 2019-09-15 23:15 | Progress Note ---
DATE: 09/15/2019 SUBJECTIVE: This is an elderly 83-year-old male who came to the emergency room for fever, cough with sputum production. The patient was found to have COVID. He is in isolation. PHYSICAL EXAMINATION: VITAL SIGNS: Stable. HEENT: NAD. CHEST: Bilaterally clear. CARDIOVASCULAR: Regular rhythm. No gallop. No murmur. ABDOMEN: Soft. EXTREMITIES: CCE. NEUROLOGICAL: The patient has no focal deficit. ASSESSMENT: 1. COVID. 2. Fever, rule out sepsis. 3. CVA. PLAN: 1. Continue current treatment. 2. The patient is still going to stay in the hospital. Vincent Foote M.D. DR: Lynne JOB#: [id number] CC:
[2019-09-16] VITALS: BP 124/56
[2019-09-16 04:00] VITALS: BP 118/68
--- NOTE | 2019-09-16 06:50 | NUR ---
NURSE NOTES: INSERTED NEW IV ON LEFT FOREARM 22G. D/C PREVIOUS IV D/T LEAKING.
--- NOTE | 2019-09-16 07:05 | NUR ---
HAND-OFF: Report given to KAMILA Lomeli. Endorsed plan of care.
--- NOTE | 2019-09-16 07:45 | NUR ---
NURSE NOTES: Patient alert x4, Sinhala speaking; on Nasal Cannula 2 Liters, no sing of distress and shortness of breath; IV Left For-Arm 22G NS 75cc running; side rails up x2, breaks engaged, bed at lowest position, call light with reach; will keep monitoring.
[2019-09-16 08:00] VITALS: BP 133/68
[2019-09-16] MEDS: Furosemide 40mg tab ORAL SCH (08:48)
[2019-09-16] MEDS: Ascorbic Acid 500mg tab ORAL SCH (08:48)
[2019-09-16] MEDS: Multivitamin w/Minerals tab ORAL SCH (08:49)
[2019-09-16] MEDS: Docusate 100mg cap ORAL SCH ×2 (08:49→17:19)
[2019-09-16] MEDS: Metoprolol Tartrate 100mg tab ORAL SCH (08:49)
[2019-09-16] MEDS: Miralax 17gm pkt ORAL SCH (08:50)
[2019-09-16] MEDS: Brimonidine 0.2% Opth Sol BOTH EYES SCH ×2 (08:50→17:19)
--- NOTE | 2019-09-16 09:16 | Pulmonology Progress Note ---
Assessment/Plan Assessment/Plan IMPRESSION: 1. History of previous UTI. 2. Bronchitis. 3. Positive COVID-19. 4. CVA. DISCUSSION: The patient is a [facility] resident. Agree with broad-spectrum antibiotics. Has positive PCR for COVID-19. Currently the patient is on azithromycin and Rocephin, which is adequate. I will follow carefully. Ordered oxygen and pulmonary hygiene. Yandel Yap M.D. Subjective ROS Limited/Unobtainable: Yes Interval Events: None new Constitutional: Reports: no symptoms HEENT: Repors: no symptoms Respiratory: Reports: no symptoms Cardiovascular: Reports: no symptoms Gastrointestinal/Abdominal: Reports: no symptoms Genitourinary: Reports: no symptoms Musculoskeletal: Denies: pain Allergies: Coded Allergies: No Known Allergies (Unverified , 09/03/14) Objective Last 24 Hour Vital Signs Date Time Temp Pulse Resp B/P (MAP) Pulse Ox O2 Delivery O2 Flow Rate FiO2 09/16/19 08:49 96 133/94 09/16/19 08:49 94 133/96 09/16/19 04:00 97.6 91 20 118/68 (85) 95 09/16/19 00:00 98.8 77 21 124/56 (78) 96 09/15/19 21:00 Nasal Cannula 2.0 09/15/19 20:00 99.0 74 20 120/58 (78) 97 09/15/19 18:10 99.8 09/15/19 16:00 98.0 76 20 124/63 (83) 95 09/15/19 12:00 99.5 89 20 135/67 (89) 94 09/15/19 09:28 90 119/70 09/15/19 09:27 90 119/70 Intake and Output 09/15/19 09/16/19 19:00 07:00 Intake Total 1185 ml 825 ml Balance 1185 ml 825 ml Intake Oral 960 ml IV Total 225 ml 825 ml # Voids 6 # Bowel Movements 1 General Appearance: no acute distress HEENT: normocephalic Respiratory/Chest: chest wall non-tender Cardiovascular: normal peripheral pulses Abdomen: normal bowel sounds Current Medications Medications (Trade) Dose Ordered Sig/Yaz Route PRN Reason Start Time Stop Time Status Last Admin Dose Admin Acetaminophen (Tylenol) 650 mg Q4H PRN ORAL Mild Pain (Pain Scale 1-3) 09/12/19 22:15 10/12/19 22:14 09/16/19 08:49 Albuterol/ Ipratropium (Combivent Respimat) 1 puff Q4H PRN INH SOB/WHEEZING 09/12/19 22:45 10/12/19 22:44 Amlodipine Besylate (Norvasc) 10 mg DAILY ORAL 09/13/19 09:00 10/13/19 08:59 09/16/19 08:49 Ascorbic Acid (Vitamin C) 500 mg DAILY ORAL 09/13/19 09:00 10/13/19 08:59 09/16/19 08:48 Brimonidine Tartrate (Alphagan) 1 drop TWICE A DAY BOTH EYES 09/13/19 09:00 12/12/19 08:59 09/16/19 08:50 Docusate Sodium (Colace) 100 mg BID ORAL 09/13/19 09:00 10/13/19 08:59 09/16/19 08:49 Furosemide (Lasix) 40 mg DAILY ORAL 09/13/19 09:00 10/13/19 08:59 09/16/19 08:48 Gabapentin (Neurontin) 300 mg THREE TIMES A DAY ORAL 09/13/19 09:00 10/13/19 08:59 09/16/19 08:50 Guaifenesin (Robitussin) 200 mg Q4H PRN ORAL For Cough 09/12/19 22:30 12/11/19 22:29 Hydroxychloroquine Sulfate (Plaquenil) 200 mg Q12HR ORAL 09/16/19 09:00 09/19/19 21:01 09/16/19 08:48 Ibuprofen (Motrin) 600 mg Q6H PRN ORAL For Pain 09/12/19 22:30 10/12/19 22:29 Metoprolol Tartrate (Lopressor) 100 mg DAILY ORAL 09/13/19 09:00 12/12/19 08:59 09/16/19 08:49 Multivitamins Therapeutic (Therapeutic Multivitamin) 1 ea DAILY ORAL 09/13/19 09:00 10/13/19 08:59 09/16/19 08:49 Pantoprazole (Protonix) 40 mg DAILY ORAL 09/13/19 09:00 10/13/19 08:59 09/16/19 08:48 Polyethylene Glycol (Miralax) 17 gm DAILY ORAL 09/13/19 09:00 10/13/19 08:59 09/16/19 08:50 Sodium Chloride 1,000 ml @ 75 mls/hr [id number] IV 09/12/19 22:15 10/12/19 22:14 09/16/19 06:15 Yandel Yap MD Sep 16, 2019 09:16
--- NOTE | 2019-09-16 10:00 | Consultation ---
DATE OF CONSULTATION: 09/13/2019 INFECTIOUS DISEASES CONSULTATION This consult is for coverage of Dr. King. CONSULTING PHYSICIAN: Casper Amanda MD. PRIMARY ATTENDING PHYSICIAN: Stefano Foote M.D. REASON FOR CONSULT: Pneumonia, rule out COVID-19. HISTORY OF PRESENT ILLNESS: An 83-year-old long-term resident admitted yesterday because of coughing, shortness of breath, fever, chills. In hospital, had a temperature of 101.8, had decrease in O2 saturation. PAST MEDICAL HISTORY: Significant for BPH, has history of CVA, hypertension, hyperlipidemia. ALLERGIES: No known drug allergies. MEDICATIONS: Started on Zithromax and Rocephin. Also getting amlodipine, vitamin C, Alphagan eye drops, Colace, Lasix, metoprolol, multivitamin, Protonix, albuterol, ipratropium inhaler, ibuprofen, sodium chloride, Tylenol. Had a dose of vancomycin and cefepime in the ER. SOCIAL HISTORY: [facility] resident. . REVIEW OF SYSTEMS: Limited, the patient has dry cough. Has no other complaints. PHYSICAL EXAMINATION: VITAL SIGNS: Temperature 98.6, pulse 79, blood pressure 135/72. GENERAL APPEARANCE: No acute distress. Well developed. HEAD AND NECK: Getting oxygen by nasal cannula. HEART: Normal rate. LUNGS: Clear. ABDOMEN: Soft, nontender. EXTREMITIES: He has no edema. NEUROLOGIC: He is awake, alert, verbal. Moves all of the extremities. LABORATORY AND DIAGNOSTIC DATA: Sodium 140, potassium 4.6, chloride 104, bicarbonate 27, BUN 18, creatinine 0.9. Glucose 145. Albumin is 3.1. WBC 7.8, hemoglobin 15.7, hematocrit 48.5, platelets 185. Chest x-ray showed right infrahilar opacity, atelectasis versus infiltrate. IMPRESSION: Fever and lower respiratory syndrome, likely has pneumonia. I suspect he is having COVID-19. Has hypertension , BPH, and history of CVA. RECOMMENDATION: We will continue with ceftriaxone and Zithromax. We will follow up cultures and COVID-19 test. If the patient's condition becomes worse and becomes hypoxemic, we will start on hydroxychloroquine. At the end of my exam, I thanked Dr. Foote for involving me in the care of this patient. Casper Amanda M.D. DR: CRISTINA JOB#: [id number] CC: ANDREIA
--- NOTE | 2019-09-16 10:14 | History and Physical Report ---
DATE OF ADMISSION: 09/12/2019 HISTORY OF PRESENT ILLNESS: This is an 83-year-old male who was living at snf . For the last 2 days, he is also having cough with sputum production. The patient is feeling generalized weakness, tired, poor appetite, and he has no nausea or vomiting. No abdominal pain. No diarrhea. The patient for last 2 days at snf. The patient is feeling sick, tired, and . PAST MEDICAL HISTORY: Significant for , hypertension, degenerative arthritis, chronic back pain, and comorbid obesity. ALLERGIES: NKA. MEDICATIONS: See the list. PHYSICAL EXAMINATION: GENERAL: This is an elderly male who is currently in the hospital ER, looks critically sick. VITAL SIGNS: Blood pressure is 122/70, pulse 90 to 100, respirations 18, temperature, currently 100.6. His skin is little diaphoretic and dry. HEENT: NAD. CHEST: Bilaterally decreased breath sounds . A few crackles bibasilar. CARDIOVASCULAR: Regular rhythm. Tachycardia. ABDOMEN: Soft. Positive bowel sounds. Nontender. EXTREMITIES: No edema. GENITOURINARY: Deferred. LABORATORY DATA: His white counts are normal. Chest x-ray showing pneumonia. BUN is slightly high. ASSESSMENT AND PLAN: 1. Pneumonia, rule out COVID. 2. Hypertension. 3. . 4. Hyperlipidemia. 5. History of chronic back pain . 6. Depression. . 7. The patient IV fluids, IV antibiotics, bronchodilator treatments, consider IV consult to rule out COVID. The patient is currently Full Code. We will keep him in isolation to rule out COVID. Vincent Foote M.D. DR: Dennis JOB#: [id number] CC:
--- NOTE | 2019-09-16 10:38 | Infectious Diseases Prog Note ---
Assessment/Plan Assessment/Plan antibiotics : hydroxychloroquine A 1. COVID 19 pneumonia 2. bronchitis 3. CVA P 1. continue hydroxychloroquine 3 more days 2. will follow up cultures 3. continue isolation Subjective Constitutional: Denies: fever, chills Respiratory: Denies: shortness of breath, dry cough Gastrointestinal/Abdominal: Denies: nausea, vomiting, diarrhea Musculoskeletal: Denies: pain Allergies: Coded Allergies: No Known Allergies (Unverified , 09/03/14) Objective Vital Signs Last 24 Hour Vital Signs Date Time Temp Pulse Resp B/P (MAP) Pulse Ox O2 Delivery O2 Flow Rate FiO2 09/16/19 08:49 96 133/94 09/16/19 08:49 94 133/96 09/16/19 08:00 99.0 88 20 133/68 (89) 94 09/16/19 04:00 97.6 91 20 118/68 (85) 95 09/16/19 00:00 98.8 77 21 124/56 (78) 96 09/15/19 21:00 Nasal Cannula 2.0 09/15/19 20:00 99.0 74 20 120/58 (78) 97 09/15/19 18:10 99.8 09/15/19 16:00 98.0 76 20 124/63 (83) 95 09/15/19 12:00 99.5 89 20 135/67 (89) 94 Height (Feet): 5 Height (Inches): 11.00 Weight (Pounds): 200 Current Medications Medications (Trade) Dose Ordered Sig/Yaz Route PRN Reason Start Time Stop Time Status Last Admin Dose Admin Acetaminophen (Tylenol) 650 mg Q4H PRN ORAL Mild Pain (Pain Scale 1-3) 09/12/19 22:15 10/12/19 22:14 09/16/19 08:49 Albuterol/ Ipratropium (Combivent Respimat) 1 puff Q4H PRN INH SOB/WHEEZING 09/12/19 22:45 10/12/19 22:44 Amlodipine Besylate (Norvasc) 10 mg DAILY ORAL 09/13/19 09:00 10/13/19 08:59 09/16/19 08:49 Ascorbic Acid (Vitamin C) 500 mg DAILY ORAL 09/13/19 09:00 5/19/20 08:59 09/16/19 08:48 Brimonidine Tartrate (Alphagan) 1 drop TWICE A DAY BOTH EYES 09/13/19 09:00 12/12/19 08:59 09/16/19 08:50 Docusate Sodium (Colace) 100 mg BID ORAL 09/13/19 09:00 10/13/19 08:59 09/16/19 08:49 Furosemide (Lasix) 40 mg DAILY ORAL 09/13/19 09:00 10/13/19 08:59 09/16/19 08:48 Gabapentin (Neurontin) 300 mg THREE TIMES A DAY ORAL 09/13/19 09:00 10/13/19 08:59 09/16/19 08:50 Guaifenesin (Robitussin) 200 mg Q4H PRN ORAL For Cough 09/12/19 22:30 12/11/19 22:29 Hydroxychloroquine Sulfate (Plaquenil) 200 mg Q12HR ORAL 09/16/19 09:00 09/19/19 21:01 09/16/19 08:48 Ibuprofen (Motrin) 600 mg Q6H PRN ORAL For Pain 09/12/19 22:30 10/12/19 22:29 Metoprolol Tartrate (Lopressor) 100 mg DAILY ORAL 09/13/19 09:00 12/12/19 08:59 09/16/19 08:49 Multivitamins Therapeutic (Therapeutic Multivitamin) 1 ea DAILY ORAL 09/13/19 09:00 10/13/19 08:59 09/16/19 08:49 Pantoprazole (Protonix) 40 mg DAILY ORAL 09/13/19 09:00 10/13/19 08:59 09/16/19 08:48 Polyethylene Glycol (Miralax) 17 gm DAILY ORAL 09/13/19 09:00 10/13/19 08:59 09/16/19 08:50 Sodium Chloride 1,000 ml @ 75 mls/hr [id number] IV 09/12/19 22:15 10/12/19 22:14 09/16/19 06:15 Maxi King MD Sep 16, 2019 10:38
[2019-09-16 12:00] VITALS: BP 109/64
[2019-09-16 16:00] VITALS: BP 118/65
--- NOTE | 2019-09-16 17:42 | NUR ---
CASE MANAGEMENT: REVIEW SI: COVID-19 PNA . T 99.5 HR 89 RR 20 BP 124/58 SAT 94% NC/2L IS: NS IVF @75ML/HR PLAQUENIL 200MG PO Q12HR AZITHROMYCIN IV QD CEFTRIAXONE IV Q24HR MED/SURG STATUS DCP: PATIENT IS FROM [facility]
--- NOTE | 2019-09-16 18:45 | Progress Note ---
DATE: 09/16/2019 SUBJECTIVE: This is an 83-year-old male who came with fever, first test COVID was positive. The patient is currently feeling better. No fever for last few days. PHYSICAL EXAMINATION: VITAL SIGNS: Current blood pressure 133/94, pulse 91, no fever since this morning CHEST: Bilateral few crackles. CARDIOVASCULAR: Regular rhythm. ABDOMEN: Soft. EXTREMITIES: CCE. NEUROLOGIC: Generalized weakness. LABORATORY AND DIAGNOSTIC DATA: Urine is 2+ blood. Imaging showing bilateral pneumonia, . First COVID test was positive. ASSESSMENT: 1. Fever, rule out sepsis. 2. Pneumonia. 3. COVID positive. 4. CVA. 5. Hypertension. 6. Chronic back pain. PLAN: We will currently continue antibiotics. Continue isolation. Repeat COVID. Discussed with Dr. King for ID consult. Vincent Foote M.D. DR: Lynne JOB#: [id number] CC:
--- NOTE | 2019-09-16 19:15 | NUR ---
HAND-OFF: Report given to KAMILA Mcdowell.
--- NOTE | 2019-09-16 19:30 | NUR ---
NURSE NOTES: Received patient on bed,awake and verbally responsive. argentine speaking. no sob. no pain or discomfort. on o2 cannula. bed locked and in lowest position. call light and light button within easy reach. will observed strict isolation. will continue plan of care.
[2019-09-16 20:00] VITALS: BP 130/65
[2019-09-17] VITALS: BP 132/71
[2019-09-17 04:00] VITALS: BP 134/70
--- NOTE | 2019-09-17 07:32 | NUR ---
HAND-OFF: Report given to rafy coleman.
[2019-09-17 07:40] LABS: ALANINE AMINOTRANSFERASE 27 U/L (12-78); ALBUMIN 2.4 G/DL (3.4-5.0); ALBUMIN/GLOBULIN RATIO 0.6 (1.0-2.7); ALKALINE PHOSPHATASE 70 U/L (46-116); ANION GAP 13 mmol/L (5-15); ASPARTATE AMINO TRANSFERASE 42 U/L (15-37); BILIRUBIN,TOTAL 0.5 MG/DL (0.2-1.0); BLOOD UREA NITROGEN 13 mg/dL (7-18); CALCIUM 8.1 MG/DL (8.5-10.1); CARBON DIOXIDE 22 MMOL/L (21-32); CHLORIDE 102 MMOL/L (98-107); CREATININE 0.7 MG/DL (0.55-1.30); POTASSIUM 3.6 MMOL/L (3.5-5.1); SODIUM 137 MMOL/L (136-145)
[2019-09-17 08:00] VITALS: BP 145/76
--- NOTE | 2019-09-17 08:00 | NUR ---
NURSE NOTES: Patient is alert,respirations are unlabored.02 on at 2L N/C.IV fluids infusing as ordered.patient ate some ofhis breakfast.Bed alarm on,call light within reach.
[2019-09-17] MEDS: Docusate 100mg cap ORAL SCH ×2 (09:01→18:56)
[2019-09-17] MEDS: Metoprolol Tartrate 100mg tab ORAL SCH (09:02)
[2019-09-17] MEDS: Furosemide 40mg tab ORAL SCH (09:02)
[2019-09-17] MEDS: Miralax 17gm pkt ORAL SCH (09:02)
[2019-09-17] MEDS: Multivitamin w/Minerals tab ORAL SCH (09:04)
[2019-09-17] MEDS: Ascorbic Acid 500mg tab ORAL SCH (09:04)
[2019-09-17] MEDS: Brimonidine 0.2% Opth Sol BOTH EYES SCH ×2 (10:40→18:57)
--- NOTE | 2019-09-17 10:43 | NUR ---
RD ASSESSMENT & RECOMMENDATIONS SEE CARE ACTIVITY FOR COMPLETE ASSESSMENT DAILY ESTIMATED NEEDS: Needs based on wound, 67kg 25-30 kcals/kg total kcals 1.25-1.5 g protein/kg 83-100 g total protein 25-30 mL/kg total fluid mLs NUTRITION DIAGNOSIS: Increased protein intake needs R/T wound healing as evidenced by pt admitted w/ partial thickness shearing with surrounding non-blanchable erythema at R L gluteal cheeks and cleft of buttocks, and non-blanching erythema R and L heels. CURRENT DIET:REGULAR PO DIET RECOMMENDATIONS: LOW NA/ texture as tolerated ADDITIONAL RECOMMENDATIONS: * SNF: HT=65" PY=[id number] (08/27/19) * Monitor PO intake -> decreasing at this time * Wound healing: continue MVI + Vit C Carlos BID * Maintain liberalized Regular if poor PO continues * Ensure Enlive x 1 w/ variable/poor PO
[2019-09-17 12:00] VITALS: BP 141/73
--- NOTE | 2019-09-17 13:37 | NUR ---
NURSE NOTES: Patient IV out IV restarted, patient moved hand before able to secure IV,patient state no IV came out.Will notify Doctor.
--- NOTE | 2019-09-17 13:53 | Infectious Diseases Prog Note ---
Assessment/Plan Assessment/Plan A 1. COVID 19 pneumonia 2. bronchitis 3. CVA P 1. continue hydroxychloroquine 2 more days 2. will follow up cultures 3. continue isolation Subjective ROS Limited/Unobtainable: Yes Constitutional: Denies: fever Allergies: Coded Allergies: No Known Allergies (Unverified , 09/03/14) Objective Vital Signs Last 24 Hour Vital Signs Date Time Temp Pulse Resp B/P (MAP) Pulse Ox O2 Delivery O2 Flow Rate FiO2 09/17/19 12:00 98.9 82 18 141/73 (95) 09/17/19 09:03 110 142/80 09/17/19 09:02 110 142/80 09/17/19 09:00 Nasal Cannula 2.0 09/17/19 08:00 98.8 109 20 145/76 (99) 95 09/17/19 04:00 99.8 93 20 134/70 (91) 97 09/17/19 00:00 99.8 94 20 132/71 (91) 96 09/16/19 21:00 Nasal Cannula 2.0 09/16/19 20:00 99.8 86 20 130/65 (86) 95 09/16/19 16:00 99.0 92 20 118/65 (82) 94 Height (Feet): 5 Height (Inches): 11.00 Weight (Pounds): 200 General Appearance: no acute distress HEENT: mucous membranes moist Respiratory/Chest: lungs clear Cardiovascular: normal rate Abdomen: soft, non tender Extremities: no edema Neurologic/Psychiatric: alert, responsive Laboratory Tests Test 09/17/19 05:00 Sodium Level 137 MMOL/L (136-145) Potassium Level 3.6 MMOL/L (3.5-5.1) Chloride Level 102 MMOL/L (98-107) Carbon Dioxide Level 22 MMOL/L (21-32) Anion Gap 13 mmol/L (5-15) Blood Urea Nitrogen 13 mg/dL (7-18) Creatinine 0.7 MG/DL (0.55-1.30) Estimat Glomerular Filtration Rate > 60 mL/min (>60) Glucose Level 76 MG/DL (74-106) Calcium Level 8.1 MG/DL (8.5-10.1) L Total Bilirubin 0.5 MG/DL (0.2-1.0) Aspartate Amino Transf (AST/SGOT) 42 U/L (15-37) H Alanine Aminotransferase (ALT/SGPT) 27 U/L (12-78) Alkaline Phosphatase 70 U/L (46-116) Total Protein 6.7 G/DL (6.4-8.2) Albumin 2.4 G/DL (3.4-5.0) L Globulin 4.3 g/dL Albumin/Globulin Ratio 0.6 (1.0-2.7) L Current Medications Medications (Trade) Dose Ordered Sig/Yaz Route PRN Reason Start Time Stop Time Status Last Admin Dose Admin Acetaminophen (Tylenol) 650 mg Q4H PRN ORAL Mild Pain (Pain Scale 1-3) 09/12/19 22:15 10/12/19 22:14 09/16/19 08:49 Albuterol/ Ipratropium (Combivent Respimat) 1 puff Q4H PRN INH SOB/WHEEZING 09/12/19 22:45 10/12/19 22:44 Amlodipine Besylate (Norvasc) 10 mg DAILY ORAL 09/13/19 09:00 10/13/19 08:59 09/17/19 09:03 Ascorbic Acid (Vitamin C) 500 mg DAILY ORAL 09/13/19 09:00 10/13/19 08:59 09/17/19 09:04 Brimonidine Tartrate (Alphagan) 1 drop TWICE A DAY BOTH EYES 09/13/19 09:00 12/12/19 08:59 09/17/19 10:40 Docusate Sodium (Colace) 100 mg BID ORAL 09/13/19 09:00 10/13/19 08:59 09/17/19 09:01 Furosemide (Lasix) 40 mg DAILY ORAL 09/13/19 09:00 10/13/19 08:59 09/17/19 09:02 Gabapentin (Neurontin) 300 mg THREE TIMES A DAY ORAL 09/13/19 09:00 10/13/19 08:59 09/17/19 13:35 Guaifenesin (Robitussin) 200 mg Q4H PRN ORAL For Cough 09/12/19 22:30 12/11/19 22:29 Hydroxychloroquine Sulfate (Plaquenil) 200 mg Q12HR ORAL 09/16/19 09:00 09/19/19 21:01 09/17/19 09:03 Ibuprofen (Motrin) 600 mg Q6H PRN ORAL For Pain 09/12/19 22:30 10/12/19 22:29 Metoprolol Tartrate (Lopressor) 100 mg DAILY ORAL 09/13/19 09:00 12/12/19 08:59 09/17/19 09:02 Multivitamins Therapeutic (Therapeutic Multivitamin) 1 ea DAILY ORAL 09/13/19 09:00 10/13/19 08:59 09/17/19 09:04 Pantoprazole (Protonix) 40 mg DAILY ORAL 09/13/19 09:00 10/13/19 08:59 09/17/19 09:04 Polyethylene Glycol (Miralax) 17 gm DAILY ORAL 09/13/19 09:00 10/13/19 08:59 09/17/19 09:02 Sodium Chloride 1,000 ml @ 75 mls/hr [id number] IV 09/12/19 22:15 10/12/19 22:14 09/17/19 09:01 Casper Amanda MD Sep 17, 2019 13:53
--- NOTE | 2019-09-17 14:07 | Pulmonology Progress Note ---
Assessment/Plan Assessment/Plan IMPRESSION: 1. History of previous UTI. 2. Bronchitis. 3. Positive COVID-19. 4. CVA. DISCUSSION: The patient is a [facility] resident. Agree with broad-spectrum antibiotics. Has positive PCR for COVID-19. Currently the patient is on azithromycin and Rocephin, which is adequate. I will follow carefully. Ordered oxygen and pulmonary hygiene. Yandel Yap M.D. Subjective ROS Limited/Unobtainable: Yes Interval Events: None new Constitutional: Denies: fever HEENT: Repors: no symptoms Respiratory: Reports: no symptoms Cardiovascular: Reports: no symptoms Gastrointestinal/Abdominal: Denies: nausea, vomiting, diarrhea Genitourinary: Reports: no symptoms Musculoskeletal: Denies: pain Allergies: Coded Allergies: No Known Allergies (Unverified , 09/03/14) Objective Last 24 Hour Vital Signs Date Time Temp Pulse Resp B/P (MAP) Pulse Ox O2 Delivery O2 Flow Rate FiO2 09/17/19 12:00 98.9 82 18 141/73 (95) 09/17/19 09:03 110 142/80 09/17/19 09:02 110 142/80 09/17/19 09:00 Nasal Cannula 2.0 09/17/19 08:00 98.8 109 20 145/76 (99) 95 09/17/19 04:00 99.8 93 20 134/70 (91) 97 09/17/19 00:00 99.8 94 20 132/71 (91) 96 09/16/19 21:00 Nasal Cannula 2.0 09/16/19 20:00 99.8 86 20 130/65 (86) 95 09/16/19 16:00 99.0 92 20 118/65 (82) 94 Intake and Output 09/16/19 09/17/19 19:00 07:00 Intake Total 900 ml 475 ml Balance 900 ml 475 ml Intake Oral 400 ml IV Total 900 ml 75 ml # Voids 3 2 General Appearance: no acute distress HEENT: mucous membranes moist Respiratory/Chest: chest wall non-tender Cardiovascular: normal peripheral pulses Abdomen: soft, non tender Extremities: no edema Neurologic/Psychiatric: alert, responsive Laboratory Tests 09/17/19 05:00: Sodium Level 137, Potassium Level 3.6, Chloride Level 102, Carbon Dioxide Level 22, Anion Gap 13, Blood Urea Nitrogen 13, Creatinine 0.7, Estimat Glomerular Filtration Rate > 60, Glucose Level 76, Calcium Level 8.1L, Total Bilirubin 0.5 , Aspartate Amino Transf (AST/SGOT) 42H, Alanine Aminotransferase (ALT/SGPT) 27 , Alkaline Phosphatase 70, Total Protein 6.7, Albumin 2.4L, Globulin 4.3, Albumin/Globulin Ratio 0.6L Current Medications Medications (Trade) Dose Ordered Sig/Yaz Route PRN Reason Start Time Stop Time Status Last Admin Dose Admin Acetaminophen (Tylenol) 650 mg Q4H PRN ORAL Mild Pain (Pain Scale 1-3) 09/12/19 22:15 10/12/19 22:14 09/16/19 08:49 Albuterol/ Ipratropium (Combivent Respimat) 1 puff Q4H PRN INH SOB/WHEEZING 09/12/19 22:45 10/12/19 22:44 Amlodipine Besylate (Norvasc) 10 mg DAILY ORAL 09/13/19 09:00 10/13/19 08:59 09/17/19 09:03 Ascorbic Acid (Vitamin C) 500 mg DAILY ORAL 09/13/19 09:00 10/13/19 08:59 09/17/19 09:04 Brimonidine Tartrate (Alphagan) 1 drop TWICE A DAY BOTH EYES 09/13/19 09:00 12/12/19 08:59 09/17/19 10:40 Docusate Sodium (Colace) 100 mg BID ORAL 09/13/19 09:00 10/13/19 08:59 09/17/19 09:01 Furosemide (Lasix) 40 mg DAILY ORAL 09/13/19 09:00 10/13/19 08:59 09/17/19 09:02 Gabapentin (Neurontin) 300 mg THREE TIMES A DAY ORAL 09/13/19 09:00 10/13/19 08:59 09/17/19 13:35 Guaifenesin (Robitussin) 200 mg Q4H PRN ORAL For Cough 09/12/19 22:30 12/11/19 22:29 Hydroxychloroquine Sulfate (Plaquenil) 200 mg Q12HR ORAL 09/16/19 09:00 09/19/19 21:01 09/17/19 09:03 Ibuprofen (Motrin) 600 mg Q6H PRN ORAL For Pain 09/12/19 22:30 10/12/19 22:29 Metoprolol Tartrate (Lopressor) 100 mg DAILY ORAL 09/13/19 09:00 12/12/19 08:59 09/17/19 09:02 Multivitamins Therapeutic (Therapeutic Multivitamin) 1 ea DAILY ORAL 09/13/19 09:00 10/13/19 08:59 09/17/19 09:04 Pantoprazole (Protonix) 40 mg DAILY ORAL 09/13/19 09:00 10/13/19 08:59 09/17/19 09:04 Polyethylene Glycol (Miralax) 17 gm DAILY ORAL 09/13/19 09:00 10/13/19 08:59 09/17/19 09:02 Sodium Chloride 1,000 ml @ 75 mls/hr [id number] IV 09/12/19 22:15 10/12/19 22:14 09/17/19 09:01 Yandel Yap MD Sep 17, 2019 14:07
[2019-09-17 16:00] VITALS: BP 148/77
--- NOTE | 2019-09-17 18:30 | NUR ---
NURSE NOTES: Patient resting,bed alarm on,call light within reach,respirations remain unlabored.
--- NOTE | 2019-09-17 19:20 | NUR ---
HAND-OFF: Report given to Thelma TREVIÑO, aware of fall risk.
--- NOTE | 2019-09-17 19:30 | NUR ---
Report received by Flower Pt awake alert in bed watching TV. no acute distress noted. Pt able to make needs known pt on NA
--- NOTE | 2019-09-17 19:30 | NUR ---
Continue charting Pt has Nasal cannula @ 2liters 02 sat @ 95%.Pt has no IV access per day nurse pt refused MD aware. condom catheter in place Droplet precautions maintained. will continue to monitor for treatment and care. bed in lowest position call light in reach
[2019-09-17 20:00] VITALS: BP 103/58
[2019-09-18] VITALS: BP 122/65
[2019-09-18 04:00] VITALS: BP 127/60
--- NOTE | 2019-09-18 07:41 | NUR ---
report given to Flower TREVIÑO
[2019-09-18 08:00] VITALS: BP 145/70
--- NOTE | 2019-09-18 08:07 | NUR ---
NURSE NOTES: Patient is awake and alert,respirations unlabored. 02 on at 2L N/C.IV fluids infusing as ordered. Patient eating breakfast.Bed alarm on,call light within reach.
[2019-09-18] MEDS: Brimonidine 0.2% Opth Sol BOTH EYES SCH ×3 (08:57→18:37)
[2019-09-18] MEDS: Docusate 100mg cap ORAL SCH ×2 (08:57→18:36)
[2019-09-18] MEDS: Metoprolol Tartrate 100mg tab ORAL SCH (08:58)
[2019-09-18] MEDS: Furosemide 40mg tab ORAL SCH (08:58)
[2019-09-18] MEDS: Ascorbic Acid 500mg tab ORAL SCH (09:00)
[2019-09-18] MEDS: Multivitamin w/Minerals tab ORAL SCH (09:00)
[2019-09-18] MEDS: Miralax 17gm pkt ORAL SCH (09:00)
--- NOTE | 2019-09-18 11:25 | Infectious Diseases Prog Note ---
Assessment/Plan Assessment/Plan antibiotics : hydroxychloroquine A 1. COVID 19 pneumonia 2. bronchitis 3. CVA P 1. continue hydroxychloroquine 1 more day 2. will follow up cultures 3. continue isolation Subjective ROS Limited/Unobtainable: Yes Allergies: Coded Allergies: No Known Allergies (Unverified , 09/03/14) Objective Vital Signs Last 24 Hour Vital Signs Date Time Temp Pulse Resp B/P (MAP) Pulse Ox O2 Delivery O2 Flow Rate FiO2 09/18/19 08:59 92 145/70 09/18/19 08:58 92 145/70 09/18/19 04:27 97.9 09/18/19 04:00 99.3 82 20 127/60 (82) 82 09/18/19 00:00 99.6 87 20 122/65 (84) 95 09/17/19 21:00 Nasal Cannula 2.0 09/17/19 20:00 100.2 20 103/58 (73) 94 09/17/19 16:00 97.9 86 20 148/77 (100) 09/17/19 12:00 98.9 82 18 141/73 (95) Height (Feet): 5 Height (Inches): 11.00 Weight (Pounds): 200 Laboratory Tests Test 09/18/19 08:40 Magnesium Level 2.1 MG/DL (1.8-2.4) Current Medications Medications (Trade) Dose Ordered Sig/Yaz Route PRN Reason Start Time Stop Time Status Last Admin Dose Admin Acetaminophen (Tylenol) 650 mg Q4H PRN ORAL Mild Pain (Pain Scale 1-3) 09/12/19 22:15 10/12/19 22:14 09/18/19 03:57 Albuterol/ Ipratropium (Combivent Respimat) 1 puff Q4H PRN INH SOB/WHEEZING 09/12/19 22:45 10/12/19 22:44 Amlodipine Besylate (Norvasc) 10 mg DAILY ORAL 09/13/19 09:00 10/13/19 08:59 09/18/19 08:59 Ascorbic Acid (Vitamin C) 500 mg DAILY ORAL 09/13/19 09:00 10/13/19 08:59 09/18/19 09:00 Brimonidine Tartrate (Alphagan) 1 drop TWICE A DAY BOTH EYES 09/13/19 09:00 12/12/19 08:59 09/18/19 08:57 Docusate Sodium (Colace) 100 mg BID ORAL 09/13/19 09:00 10/13/19 08:59 09/18/19 08:57 Furosemide (Lasix) 40 mg DAILY ORAL 09/13/19 09:00 10/13/19 08:59 09/18/19 08:58 Gabapentin (Neurontin) 300 mg THREE TIMES A DAY ORAL 09/13/19 09:00 10/13/19 08:59 09/18/19 08:59 Guaifenesin (Robitussin) 200 mg Q4H PRN ORAL For Cough 09/12/19 22:30 12/11/19 22:29 Hydroxychloroquine Sulfate (Plaquenil) 200 mg Q12HR ORAL 09/16/19 09:00 09/19/19 21:01 09/18/19 08:59 Ibuprofen (Motrin) 600 mg Q6H PRN ORAL For Pain 09/12/19 22:30 10/12/19 22:29 Metoprolol Tartrate (Lopressor) 100 mg DAILY ORAL 09/13/19 09:00 12/12/19 08:59 09/18/19 08:58 Multivitamins Therapeutic (Therapeutic Multivitamin) 1 ea DAILY ORAL 09/13/19 09:00 10/13/19 08:59 09/18/19 09:00 Pantoprazole (Protonix) 40 mg DAILY ORAL 09/13/19 09:00 10/13/19 08:59 09/18/19 08:59 Polyethylene Glycol (Miralax) 17 gm DAILY ORAL 09/13/19 09:00 10/13/19 08:59 09/17/19 09:02 Sodium Chloride 1,000 ml @ 75 mls/hr [id number] IV 09/12/19 22:15 10/12/19 22:14 09/17/19 22:15 Maxi King MD Sep 18, 2019 11:25
--- NOTE | 2019-09-18 11:55 | Pulmonology Progress Note ---
Assessment/Plan Assessment/Plan IMPRESSION: 1. History of previous UTI. 2. Bronchitis. 3. Positive COVID-19. 4. CVA. DISCUSSION: The patient is a residential resident. Agree with broad-spectrum antibiotics. Has positive PCR for COVID-19. Currently the patient is on azithromycin and Rocephin, which is adequate. I will follow carefully. Ordered oxygen and pulmonary hygiene. Yandel Yap M.D. Subjective ROS Limited/Unobtainable: Yes Interval Events: None new Constitutional: Denies: fever HEENT: Repors: no symptoms Respiratory: Reports: no symptoms Cardiovascular: Reports: no symptoms Gastrointestinal/Abdominal: Denies: nausea, vomiting, diarrhea Genitourinary: Reports: no symptoms Musculoskeletal: Denies: pain Allergies: Coded Allergies: No Known Allergies (Unverified , 09/03/14) Objective Last 24 Hour Vital Signs Date Time Temp Pulse Resp B/P (MAP) Pulse Ox O2 Delivery O2 Flow Rate FiO2 09/18/19 08:59 92 145/70 09/18/19 08:58 92 145/70 09/18/19 08:00 98.1 92 20 145/70 (95) 92 09/18/19 04:27 97.9 09/18/19 04:00 99.3 82 20 127/60 (82) 82 09/18/19 00:00 99.6 87 20 122/65 (84) 95 09/17/19 21:00 Nasal Cannula 2.0 09/17/19 20:00 100.2 20 103/58 (73) 94 09/17/19 16:00 97.9 86 20 148/77 (100) 09/17/19 12:00 98.9 82 18 141/73 (95) Intake and Output 09/17/19 09/18/19 19:00 07:00 Intake Total 630 ml Balance 630 ml Intake Oral 480 ml IV Total 150 ml # Voids 3 4 General Appearance: no acute distress HEENT: mucous membranes moist Respiratory/Chest: chest wall non-tender Cardiovascular: normal peripheral pulses Abdomen: soft, non tender Extremities: no edema Neurologic/Psychiatric: alert, responsive Laboratory Tests 09/18/19 08:40: Magnesium Level 2.1 Current Medications Medications (Trade) Dose Ordered Sig/Yaz Route PRN Reason Start Time Stop Time Status Last Admin Dose Admin Acetaminophen (Tylenol) 650 mg Q4H PRN ORAL Mild Pain (Pain Scale 1-3) 09/12/19 22:15 10/12/19 22:14 09/18/19 03:57 Albuterol/ Ipratropium (Combivent Respimat) 1 puff Q4H PRN INH SOB/WHEEZING 09/12/19 22:45 10/12/19 22:44 Amlodipine Besylate (Norvasc) 10 mg DAILY ORAL 09/13/19 09:00 10/13/19 08:59 09/18/19 08:59 Ascorbic Acid (Vitamin C) 500 mg DAILY ORAL 09/13/19 09:00 10/13/19 08:59 09/18/19 09:00 Brimonidine Tartrate (Alphagan) 1 drop TWICE A DAY BOTH EYES 09/13/19 09:00 12/12/19 08:59 09/18/19 08:57 Docusate Sodium (Colace) 100 mg BID ORAL 09/13/19 09:00 10/13/19 08:59 09/18/19 08:57 Furosemide (Lasix) 40 mg DAILY ORAL 09/13/19 09:00 10/13/19 08:59 09/18/19 08:58 Gabapentin (Neurontin) 300 mg THREE TIMES A DAY ORAL 09/13/19 09:00 10/13/19 08:59 09/18/19 08:59 Guaifenesin (Robitussin) 200 mg Q4H PRN ORAL For Cough 09/12/19 22:30 12/11/19 22:29 Hydroxychloroquine Sulfate (Plaquenil) 200 mg Q12HR ORAL 09/16/19 09:00 09/19/19 21:01 09/18/19 08:59 Ibuprofen (Motrin) 600 mg Q6H PRN ORAL For Pain 09/12/19 22:30 10/12/19 22:29 Metoprolol Tartrate (Lopressor) 100 mg DAILY ORAL 09/13/19 09:00 12/12/19 08:59 09/18/19 08:58 Multivitamins Therapeutic (Therapeutic Multivitamin) 1 ea DAILY ORAL 09/13/19 09:00 10/13/19 08:59 09/18/19 09:00 Pantoprazole (Protonix) 40 mg DAILY ORAL 09/13/19 09:00 10/13/19 08:59 09/18/19 08:59 Polyethylene Glycol (Miralax) 17 gm DAILY ORAL 09/13/19 09:00 10/13/19 08:59 09/17/19 09:02 Sodium Chloride 1,000 ml @ 75 mls/hr [id number] IV 09/12/19 22:15 10/12/19 22:14 09/17/19 22:15 Yandel Yap MD Sep 18, 2019 11:55
[2019-09-18 12:00] VITALS: BP 133/66
[2019-09-18 16:00] VITALS: BP 133/57
--- NOTE | 2019-09-18 16:04 | NUR ---
CASE MANAGEMENT:REVIEW SI;COVID-19 PNA. BRONCHITIS. 98.4 92 20 145/70 92% 2L NC NO LABS AVAILABLE IS;PLAQUENIL PO Q12 HRS LASIX PO QD VIT C PO QD DUO NEB HHN Q4 HRS PRN PROTONIX PO QD IVF NS @ 75 ML/HR MED SURG STATUS DCP;FROM [facility]
[2019-09-18 17:37] LABS: BASOPHILS % (AUTO) 0.5 % (0.0-2.0); EOSINOPHILS % (AUTO) 1.8 % (0.0-3.0); HEMATOCRIT 38.7 % (42.0-52.0); HEMOGLOBIN 13.1 G/DL (14.2-18.0); LYMPHOCYTES % (AUTO) 26.7 % (20.0-45.0); MEAN CORPUSCULAR VOLUME 90 FL (80-99); MONOCYTES % (AUTO) 6.3 % (1.0-10.0); NEUTROPHILS % (AUTO) 64.7 % (45.0-75.0); PLATELET COUNT 305 K/UL (150-450); RED BLOOD COUNT 4.28 M/UL (4.70-6.10); RED CELL DISTRIBUTION WIDTH 12.2 % (11.6-14.8); WHITE BLOOD COUNT 9.5 K/UL (4.8-10.8)
--- NOTE | 2019-09-18 19:45 | NUR ---
NURSE NOTES: Received report from KAMILA Crenshaw. AAO x 2-3, on NC 2L. IV site intact and running IVF. Isolation maintained. No acute distress noted. Bed locked, lowest position, alarm on, side rails up, call light within reach.
--- NOTE | 2019-09-18 19:50 | NUR ---
HAND-OFF: Report given to rachana TREVIÑO.
--- NOTE | 2019-09-18 19:50 | NUR ---
NURSE NOTES:RN aware of fall risk.
[2019-09-18 20:00] VITALS: BP 134/63
[2019-09-19] VITALS: BP 130/70
[2019-09-19 04:00] VITALS: BP 138/79
--- NOTE | 2019-09-19 07:29 | NUR ---
HAND-OFF: Report given to JANEY Ely.
--- NOTE | 2019-09-19 07:30 | NUR ---
NURSE NOTES: Received patient A/A/Ox3, in bed. No acute resp distress noted. on O2 2L via NC. IV site patent and intact. On droplet isolation maintained. No acute resp distress noted. Bed locked, lowest position, alarm on, brakes engaged. siderails upx3, call light within reach. will cont to monitor.
[2019-09-19 08:00] VITALS: BP 116/64
[2019-09-19] MEDS: Ascorbic Acid 500mg tab ORAL SCH (08:52)
[2019-09-19] MEDS: Multivitamin w/Minerals tab ORAL SCH (08:52)
[2019-09-19] MEDS: Docusate 100mg cap ORAL SCH ×2 (08:58→17:02)
[2019-09-19] MEDS: Brimonidine 0.2% Opth Sol BOTH EYES SCH ×2 (08:58→17:02)
[2019-09-19] MEDS: Furosemide 40mg tab ORAL SCH ×2 (08:58→12:10)
[2019-09-19] MEDS: Miralax 17gm pkt ORAL SCH (08:59)
[2019-09-19] MEDS: Metoprolol Tartrate 100mg tab ORAL SCH ×2 (08:59→12:10)
--- NOTE | 2019-09-19 11:42 | Pulmonology Progress Note ---
Assessment/Plan Assessment/Plan IMPRESSION: 1. History of previous UTI. 2. Bronchitis. 3. Positive COVID-19. 4. CVA. DISCUSSION: The patient is a intermediate resident. Agree with broad-spectrum antibiotics. Has positive PCR for COVID-19. Currently the patient is on azithromycin and Rocephin, which is adequate. I will follow carefully. Ordered oxygen and pulmonary hygiene. Yandel Yap M.D. Subjective ROS Limited/Unobtainable: Yes Interval Events: None new Constitutional: Denies: fever HEENT: Repors: no symptoms Respiratory: Reports: no symptoms Cardiovascular: Reports: no symptoms Gastrointestinal/Abdominal: Denies: nausea, vomiting, diarrhea Genitourinary: Reports: no symptoms Musculoskeletal: Denies: pain Allergies: Coded Allergies: No Known Allergies (Unverified , 09/03/14) Objective Last 24 Hour Vital Signs Date Time Temp Pulse Resp B/P (MAP) Pulse Ox O2 Delivery O2 Flow Rate FiO2 09/19/19 08:00 98.4 96 20 116/64 (81) 92 09/19/19 04:00 98.8 91 20 138/79 (98) 98 09/19/19 00:00 99.0 88 18 130/70 (90) 95 09/18/19 21:00 Nasal Cannula 2.0 09/18/19 20:00 98.9 86 18 134/63 (86) 96 09/18/19 16:00 99.9 78 20 133/57 (82) 92 09/18/19 12:00 98.4 81 20 133/66 (88) 92 Intake and Output 09/18/19 09/19/19 19:00 07:00 Intake Total 1380 ml 75 ml Balance 1380 ml 75 ml Intake Oral 480 ml IV Total 900 ml 75 ml # Voids 2 General Appearance: no acute distress HEENT: mucous membranes moist Respiratory/Chest: chest wall non-tender Cardiovascular: normal peripheral pulses Abdomen: soft, non tender Extremities: no edema Neurologic/Psychiatric: alert, responsive Laboratory Tests 09/18/19 16:50: White Blood Count 9.5, Red Blood Count 4.28L, Hemoglobin 13.1L, Hematocrit 38.7L , Mean Corpuscular Volume 90, Mean Corpuscular Hemoglobin 30.7, Mean Corpuscular Hemoglobin Concent 34.0, Red Cell Distribution Width 12.2, Platelet Count 305, Mean Platelet Volume 6.4L, Neutrophils (%) (Auto) 64.7, Lymphocytes ( %) (Auto) 26.7, Monocytes (%) (Auto) 6.3, Eosinophils (%) (Auto) 1.8, Basophils (%) (Auto) 0.5 Current Medications Medications (Trade) Dose Ordered Sig/Yaz Route PRN Reason Start Time Stop Time Status Last Admin Dose Admin Acetaminophen (Tylenol) 650 mg Q4H PRN ORAL Mild Pain (Pain Scale 1-3) 09/12/19 22:15 10/12/19 22:14 09/18/19 03:57 Albuterol/ Ipratropium (Combivent Respimat) 1 puff Q4H PRN INH SOB/WHEEZING 09/12/19 22:45 10/12/19 22:44 Amlodipine Besylate (Norvasc) 10 mg DAILY ORAL 09/13/19 09:00 10/13/19 08:59 09/18/19 08:59 Ascorbic Acid (Vitamin C) 500 mg DAILY ORAL 09/13/19 09:00 10/13/19 08:59 09/19/19 08:52 Brimonidine Tartrate (Alphagan) 1 drop TWICE A DAY BOTH EYES 09/13/19 09:00 12/12/19 08:59 09/18/19 08:57 Docusate Sodium (Colace) 100 mg BID ORAL 09/13/19 09:00 10/13/19 08:59 09/18/19 18:36 Furosemide (Lasix) 40 mg DAILY ORAL 09/13/19 09:00 10/13/19 08:59 09/18/19 08:58 Gabapentin (Neurontin) 300 mg THREE TIMES A DAY ORAL 09/13/19 09:00 10/13/19 08:59 09/19/19 08:52 Guaifenesin (Robitussin) 200 mg Q4H PRN ORAL For Cough 09/12/19 22:30 12/11/19 22:29 Hydroxychloroquine Sulfate (Plaquenil) 200 mg Q12HR ORAL 09/16/19 09:00 09/19/19 21:01 09/19/19 08:52 Ibuprofen (Motrin) 600 mg Q6H PRN ORAL For Pain 09/12/19 22:30 10/12/19 22:29 Metoprolol Tartrate (Lopressor) 100 mg DAILY ORAL 09/13/19 09:00 12/12/19 08:59 09/18/19 08:58 Multivitamins Therapeutic (Therapeutic Multivitamin) 1 ea DAILY ORAL 09/13/19 09:00 10/13/19 08:59 09/19/19 08:52 Pantoprazole (Protonix) 40 mg DAILY ORAL 09/13/19 09:00 10/13/19 08:59 09/19/19 08:52 Polyethylene Glycol (Miralax) 17 gm DAILY ORAL 09/13/19 09:00 10/13/19 08:59 09/17/19 09:02 Sodium Chloride 1,000 ml @ 75 mls/hr [id number] IV 09/12/19 22:15 10/12/19 22:14 09/18/19 20:34 Yandel Yap MD Sep 19, 2019 11:42
[2019-09-19 12:00] VITALS: BP 124/66
[2019-09-19 16:00] VITALS: BP 128/73
--- NOTE | 2019-09-19 16:54 | NUR ---
NURSE NOTES: Patient appeared to be combative when care implemented. Attempted to start an IV and he allegedly grabbed my finger and squeezed it tight. Patient attempted to hit staff when we were performing bedside care. will cont to monitor.
--- NOTE | 2019-09-19 19:10 | NUR ---
HAND-OFF: Report given to Cynthia.
[2019-09-19 20:00] VITALS: BP 148/73
--- NOTE | 2019-09-19 20:00 | NUR ---
NURSE NOTES: RECEIVED PATIENT LYING IN BED, AWAKE, DIVEHI SPEAKING, DENIES PAIN. NO SIGNS AND SYMPTOMS OF ACUTE CARDIO RESPIRATORY DISTRESS/SHORTNESS OF BREATH, GENERALIZED EDEMA NOTED. NO IV ACCESS. NO COMPLAINTS OF GI DISCOMFORT, INCONTINENT OF B/B, CARE PROVIDED, ASSISTED WITH REPOSITIONING, TOLERATED WELL. SIDE RAILS UP X3/BED IN LOWEST POSITION FOR SAFETY, FREQUENT ROUNDING FOR SAFETY/NEEDS, CONTINUE WITH CURRENT PLAN OF CARE. NAD.
[2019-09-20] VITALS: BP 129/70
--- NOTE | 2019-09-20 03:14 | Progress Note ---
DATE: 09/19/2019 SUBJECTIVE: This is an elderly male, who is currently awake, feeling better. No fever. He came with COVID positive. The patient is currently in the isolation room. PHYSICAL EXAMINATION: VITAL SIGNS: Stable. CHEST: Bilateral few crackles. CARDIOVASCULAR: Regular rhythm. No gallop. No murmur. ABDOMEN: Soft. Positive bowel sounds. Nontender. EXTREMITIES: No edema. GENITOURINARY: Deferred. LABORATORY DATA: No labs today. ASSESSMENT: 1. COVID-positive pneumonia. 2. Fever is resolved. 3. CVA. 4. Hypertension. 5. Chronic back pain. PLAN: We will currently continue current treatment. Continue isolation. Continue antibiotics. ID is on consult. Check lab and continue 2-gram sodium diet. Continue aspirin and Lipitor. Vincent Foote M.D. DR: RAMYA JOB#: [id number] CC:
[2019-09-20 04:00] VITALS: BP 123/72
--- NOTE | 2019-09-20 07:39 | NUR ---
NURSE NOTES: Received patient A/A/Ox3, in bed asleep. No acute resp distress noted. on O2 2L via NC. IV site patent and intact. On droplet isolation maintained. No acute resp distress noted. Bed locked, lowest position, alarm on, brakes engaged. siderails upx3, call light within reach. will cont to monitor.
[2019-09-20 08:00] VITALS: BP 141/72
[2019-09-20] MEDS: Furosemide 40mg tab ORAL SCH (08:53)
[2019-09-20] MEDS: Docusate 100mg cap ORAL SCH ×2 (08:53→16:35)
[2019-09-20] MEDS: Miralax 17gm pkt ORAL SCH (08:53)
[2019-09-20] MEDS: Multivitamin w/Minerals tab ORAL SCH (08:54)
[2019-09-20] MEDS: Metoprolol Tartrate 100mg tab ORAL SCH (08:54)
[2019-09-20] MEDS: Ascorbic Acid 500mg tab ORAL SCH (08:54)
[2019-09-20] MEDS: Brimonidine 0.2% Opth Sol BOTH EYES SCH ×2 (08:55→17:16)
[2019-09-20 12:02] VITALS: BP 132/68
--- NOTE | 2019-09-20 12:25 | Pulmonology Progress Note ---
Assessment/Plan Assessment/Plan IMPRESSION: 1. History of previous UTI. 2. Bronchitis. 3. Positive COVID-19. 4. CVA. DISCUSSION: The patient is a care home resident. Agree with broad-spectrum antibiotics. Has positive PCR for COVID-19. Currently the patient is on azithromycin and Rocephin, which is adequate. I will follow carefully. Ordered oxygen and pulmonary hygiene. Yandel Yap M.D. Subjective ROS Limited/Unobtainable: Yes Interval Events: None new Constitutional: Denies: fever HEENT: Repors: no symptoms Respiratory: Reports: no symptoms Cardiovascular: Reports: no symptoms Gastrointestinal/Abdominal: Denies: nausea, vomiting, diarrhea Genitourinary: Reports: no symptoms Musculoskeletal: Denies: pain Allergies: Coded Allergies: No Known Allergies (Unverified , 09/03/14) Objective Last 24 Hour Vital Signs Date Time Temp Pulse Resp B/P (MAP) Pulse Ox O2 Delivery O2 Flow Rate FiO2 09/20/19 12:02 98.5 78 20 132/68 (89) 95 09/20/19 09:00 Nasal Cannula 2.0 09/20/19 08:54 91 141/72 09/20/19 08:53 91 141/72 09/20/19 08:00 98.7 91 19 141/72 (95) 98 09/20/19 04:00 97.2 96 20 123/72 (89) 93 09/20/19 00:00 98.1 88 22 129/70 (89) 94 09/19/19 21:00 Nasal Cannula 2.0 09/19/19 20:00 99.3 96 22 148/73 (98) 93 09/19/19 16:00 98.4 95 20 128/73 (91) 92 Intake and Output 09/19/19 09/20/19 19:00 07:00 Intake Total 1155 ml 360 ml Balance 1155 ml 360 ml Intake Oral 480 ml 360 ml IV Total 675 ml # Voids 3 4 General Appearance: no acute distress HEENT: mucous membranes moist Respiratory/Chest: chest wall non-tender Cardiovascular: normal peripheral pulses Abdomen: soft, non tender Extremities: no edema Neurologic/Psychiatric: alert, responsive Current Medications Medications (Trade) Dose Ordered Sig/Yaz Route PRN Reason Start Time Stop Time Status Last Admin Dose Admin Acetaminophen (Tylenol) 650 mg Q4H PRN ORAL Mild Pain (Pain Scale 1-3) 09/12/19 22:15 10/12/19 22:14 09/18/19 03:57 Albuterol/ Ipratropium (Combivent Respimat) 1 puff Q4H PRN INH SOB/WHEEZING 09/12/19 22:45 10/12/19 22:44 Amlodipine Besylate (Norvasc) 10 mg DAILY ORAL 09/13/19 09:00 10/13/19 08:59 09/20/19 08:53 Ascorbic Acid (Vitamin C) 500 mg DAILY ORAL 09/13/19 09:00 10/13/19 08:59 09/20/19 08:54 Brimonidine Tartrate (Alphagan) 1 drop TWICE A DAY BOTH EYES 09/13/19 09:00 12/12/19 08:59 09/20/19 08:55 Docusate Sodium (Colace) 100 mg BID ORAL 09/13/19 09:00 10/13/19 08:59 09/20/19 08:53 Furosemide (Lasix) 40 mg DAILY ORAL 09/13/19 09:00 10/13/19 08:59 09/20/19 08:53 Gabapentin (Neurontin) 300 mg THREE TIMES A DAY ORAL 09/13/19 09:00 10/13/19 08:59 09/20/19 08:54 Guaifenesin (Robitussin) 200 mg Q4H PRN ORAL For Cough 09/12/19 22:30 12/11/19 22:29 Ibuprofen (Motrin) 600 mg Q6H PRN ORAL For Pain 09/12/19 22:30 10/12/19 22:29 Metoprolol Tartrate (Lopressor) 100 mg DAILY ORAL 09/13/19 09:00 12/12/19 08:59 09/20/19 08:54 Multivitamins Therapeutic (Therapeutic Multivitamin) 1 ea DAILY ORAL 09/13/19 09:00 10/13/19 08:59 09/20/19 08:54 Pantoprazole (Protonix) 40 mg DAILY ORAL 09/13/19 09:00 10/13/19 08:59 09/20/19 08:54 Polyethylene Glycol (Miralax) 17 gm DAILY ORAL 09/13/19 09:00 10/13/19 08:59 09/20/19 08:53 Sodium Chloride 1,000 ml @ 75 mls/hr [id number] IV 09/12/19 22:15 10/12/19 22:14 09/19/19 12:11 Yandel Yap MD Sep 20, 2019 12:24
--- NOTE | 2019-09-20 13:26 | Infectious Diseases Prog Note ---
Assessment/Plan Assessment/Plan A 1. COVID 19 pneumonia 2. bronchitis 3. CVA P 1. Finished hydroxychloroquine course 2. will follow up repeated COVID19 test 3. continue isolation Subjective ROS Limited/Unobtainable: Yes Allergies: Coded Allergies: No Known Allergies (Unverified , 09/03/14) Objective Vital Signs Last 24 Hour Vital Signs Date Time Temp Pulse Resp B/P (MAP) Pulse Ox O2 Delivery O2 Flow Rate FiO2 09/20/19 12:02 98.5 78 20 132/68 (89) 95 09/20/19 09:00 Nasal Cannula 2.0 09/20/19 08:54 91 141/72 09/20/19 08:53 91 141/72 09/20/19 08:00 98.7 91 19 141/72 (95) 98 09/20/19 04:00 97.2 96 20 123/72 (89) 93 09/20/19 00:00 98.1 88 22 129/70 (89) 94 09/19/19 21:00 Nasal Cannula 2.0 09/19/19 20:00 99.3 96 22 148/73 (98) 93 09/19/19 16:00 98.4 95 20 128/73 (91) 92 Height (Feet): 5 Height (Inches): 11.00 Weight (Pounds): 200 General Appearance: no acute distress HEENT: mucous membranes moist Respiratory/Chest: other - oxygen by nasal cannula Cardiovascular: normal rate Abdomen: soft, non tender Neurologic/Psychiatric: other - sleeping Current Medications Medications (Trade) Dose Ordered Sig/Yaz Route PRN Reason Start Time Stop Time Status Last Admin Dose Admin Acetaminophen (Tylenol) 650 mg Q4H PRN ORAL Mild Pain (Pain Scale 1-3) 09/12/19 22:15 10/12/19 22:14 09/18/19 03:57 Albuterol/ Ipratropium (Combivent Respimat) 1 puff Q4H PRN INH SOB/WHEEZING 09/12/19 22:45 10/12/19 22:44 Amlodipine Besylate (Norvasc) 10 mg DAILY ORAL 09/13/19 09:00 10/13/19 08:59 09/20/19 08:53 Ascorbic Acid (Vitamin C) 500 mg DAILY ORAL 09/13/19 09:00 10/13/19 08:59 09/20/19 08:54 Brimonidine Tartrate (Alphagan) 1 drop TWICE A DAY BOTH EYES 09/13/19 09:00 12/12/19 08:59 09/20/19 08:55 Docusate Sodium (Colace) 100 mg BID ORAL 09/13/19 09:00 10/13/19 08:59 09/20/19 08:53 Furosemide (Lasix) 40 mg DAILY ORAL 09/13/19 09:00 10/13/19 08:59 09/20/19 08:53 Gabapentin (Neurontin) 300 mg THREE TIMES A DAY ORAL 09/13/19 09:00 10/13/19 08:59 09/20/19 12:39 Guaifenesin (Robitussin) 200 mg Q4H PRN ORAL For Cough 09/12/19 22:30 12/11/19 22:29 Ibuprofen (Motrin) 600 mg Q6H PRN ORAL For Pain 09/12/19 22:30 10/12/19 22:29 Metoprolol Tartrate (Lopressor) 100 mg DAILY ORAL 09/13/19 09:00 12/12/19 08:59 09/20/19 08:54 Multivitamins Therapeutic (Therapeutic Multivitamin) 1 ea DAILY ORAL 09/13/19 09:00 10/13/19 08:59 09/20/19 08:54 Pantoprazole (Protonix) 40 mg DAILY ORAL 09/13/19 09:00 10/13/19 08:59 09/20/19 08:54 Polyethylene Glycol (Miralax) 17 gm DAILY ORAL 09/13/19 09:00 10/13/19 08:59 09/20/19 08:53 Sodium Chloride 1,000 ml @ 75 mls/hr [id number] IV 09/12/19 22:15 10/12/19 22:14 09/19/19 12:11 Casper Amanda MD Sep 20, 2019 13:26
[2019-09-20 16:00] VITALS: BP 132/69
--- NOTE | 2019-09-20 16:53 | NUR ---
NURSE NOTES: patient became combative. attempted to perform swab for Covid. will cont to monitor.
--- NOTE | 2019-09-20 18:58 | NUR ---
NURSE NOTES: Informed Dr. Foote regarding patient behavior being combative for IV reinsertion and for Covid swab. awaiting for a callback. will cont to monitor.
--- NOTE | 2019-09-20 19:00 | NUR ---
HAND-OFF: Report given to Cynthia.
[2019-09-20] MEDS ORDERED: LORazepam 1mg tab ORAL PRN (19:15)
[2019-09-20] MEDS ORDERED: LORazepam Inj 2mg/ml 1ml IV PRN (19:15)
--- NOTE | 2019-09-20 19:27 | NUR ---
NURSE NOTES: RECEIVED PATIENT LYING IN BED, AWAKE, ALERT/ORIENTED TO SELF, [place] SPEAKING, ABLE TO MAKE SIMPLE NEEDS KNOWN IN [place], NO IV ACCESS, MD AWARE. NO SIGNS AND SYMPTOMS OF ACUTE CARDIO RESPIRATORY DISTRESS/SHORTNESS OF BREATH. ABDOMEN SOFT/NON DISTENDED/NON TENDER/BOWEL SOUNDS AUDIBLE, NO REPORT OF N/V/D. SIDE RAILS UP X3/BED IN LOWEST POSITION FOR SAFETY, FREQUENT ROUNDING FOR SAFETY/NEEDS. CONTINUE WITH CURRENT PLAN OF CARE. NAD.
[2019-09-20 20:00] VITALS: BP 114/57
[2019-09-21] VITALS: BP 128/63
[2019-09-21 04:00] VITALS: BP 137/65
--- NOTE | 2019-09-21 07:12 | NUR ---
NURSE NOTES: RESTED WELL, NO SIGNIFICANT CHANGE OF CONDITION NOTED THROUGHOUT THE NIGHT. SAFETY MAINTAINED. NAD.
--- NOTE | 2019-09-21 07:25 | NUR ---
NURSE NOTES: RECEIVED PATIENT LYING IN BED, AWAKE, ALERT/ORIENTEDX1, [place] SPEAKING, APPEARED TO BE IMPULSIVE @ TIMES. ABLE TO MAKE SIMPLE NEEDS KNOWN IN [place], NO IV ACCESS, MD AWARE. NO SIGNS AND SYMPTOMS OF ACUTE CARDIO RESPIRATORY DISTRESS/SHORTNESS OF BREATH. ABDOMEN SOFT/NON DISTENDED/NON TENDER/BOWEL SOUNDS AUDIBLE, NO REPORT OF N/V/D. SIDE RAILS UP X3/BED IN LOWEST POSITION FOR SAFETY, FREQUENT ROUNDING FOR SAFETY/NEEDS. CONTINUE WITH CURRENT PLAN OF CARE.
[2019-09-21 08:00] VITALS: BP 146/60
[2019-09-21] MEDS: Metoprolol Tartrate 100mg tab ORAL SCH (08:17)
[2019-09-21] MEDS: Ascorbic Acid 500mg tab ORAL SCH (08:17)
[2019-09-21] MEDS: Multivitamin w/Minerals tab ORAL SCH (08:18)
[2019-09-21] MEDS: Furosemide 40mg tab ORAL SCH (08:18)
[2019-09-21] MEDS: Brimonidine 0.2% Opth Sol BOTH EYES SCH ×2 (08:19→17:10)
[2019-09-21] MEDS: Miralax 17gm pkt ORAL SCH (08:19)
[2019-09-21] MEDS: Docusate 100mg cap ORAL SCH ×2 (08:19→17:10)
--- NOTE | 2019-09-21 11:27 | Infectious Diseases Prog Note ---
Assessment/Plan Assessment/Plan antibiotics : none A 1. COVID 19 pneumonia s/p hydroxychloroquine 2. bronchitis 3. CVA P 1. continue off antibiotics 2. will follow up cultures 3. continue isolation 4. COVID 19 test pending Subjective ROS Limited/Unobtainable: Yes Allergies: Coded Allergies: No Known Allergies (Unverified , 09/03/14) Objective Vital Signs Last 24 Hour Vital Signs Date Time Temp Pulse Resp B/P (MAP) Pulse Ox O2 Delivery O2 Flow Rate FiO2 09/21/19 09:00 Nasal Cannula 2.0 09/21/19 08:18 89 146/60 09/21/19 08:17 89 146/60 09/21/19 08:00 98.9 89 18 146/60 (88) 96 09/21/19 04:00 98.7 93 20 137/65 (89) 93 09/21/19 00:00 98.1 86 18 128/63 (84) 93 09/20/19 21:00 Nasal Cannula 2.0 09/20/19 20:00 99.3 85 18 114/57 (76) 94 09/20/19 16:00 97.5 71 17 132/69 (90) 98 09/20/19 12:02 98.5 78 20 132/68 (89) 95 Height (Feet): 5 Height (Inches): 11.00 Weight (Pounds): 200 Current Medications Medications (Trade) Dose Ordered Sig/Yaz Route PRN Reason Start Time Stop Time Status Last Admin Dose Admin Acetaminophen (Tylenol) 650 mg Q4H PRN ORAL Mild Pain (Pain Scale 1-3) 09/12/19 22:15 10/12/19 22:14 09/18/19 03:57 Albuterol/ Ipratropium (Combivent Respimat) 1 puff Q4H PRN INH SOB/WHEEZING 09/12/19 22:45 10/12/19 22:44 Amlodipine Besylate (Norvasc) 10 mg DAILY ORAL 09/13/19 09:00 10/13/19 08:59 09/21/19 08:18 Ascorbic Acid (Vitamin C) 500 mg DAILY ORAL 09/13/19 09:00 10/13/19 08:59 09/21/19 08:17 Brimonidine Tartrate (Alphagan) 1 drop TWICE A DAY BOTH EYES 09/13/19 09:00 12/12/19 08:59 09/21/19 08:19 Docusate Sodium (Colace) 100 mg BID ORAL 09/13/19 09:00 10/13/19 08:59 09/20/19 08:53 Furosemide (Lasix) 40 mg DAILY ORAL 09/13/19 09:00 10/13/19 08:59 09/21/19 08:18 Gabapentin (Neurontin) 300 mg THREE TIMES A DAY ORAL 09/13/19 09:00 10/13/19 08:59 09/21/19 08:18 Guaifenesin (Robitussin) 200 mg Q4H PRN ORAL For Cough 09/12/19 22:30 12/11/19 22:29 Ibuprofen (Motrin) 600 mg Q6H PRN ORAL For Pain 09/12/19 22:30 10/12/19 22:29 Lorazepam (Ativan 2mg/ml 1ml) 1 mg Q6H PRN IV For Anxiety 09/20/19 19:15 09/27/19 19:14 Lorazepam (Ativan) 1 mg Q6H PRN ORAL For Anxiety 09/20/19 19:15 09/27/19 19:14 Metoprolol Tartrate (Lopressor) 100 mg DAILY ORAL 09/13/19 09:00 12/12/19 08:59 09/21/19 08:17 Multivitamins Therapeutic (Therapeutic Multivitamin) 1 ea DAILY ORAL 09/13/19 09:00 10/13/19 08:59 09/21/19 08:18 Pantoprazole (Protonix) 40 mg DAILY ORAL 09/13/19 09:00 10/13/19 08:59 09/21/19 08:18 Polyethylene Glycol (Miralax) 17 gm DAILY ORAL 09/13/19 09:00 10/13/19 08:59 09/20/19 08:53 Maxi King MD Sep 21, 2019 11:27
--- NOTE | 2019-09-21 11:48 | Pulmonology Progress Note ---
Assessment/Plan Assessment/Plan IMPRESSION: 1. History of previous UTI. 2. Bronchitis. 3. Positive COVID-19. 4. CVA. DISCUSSION: The patient is a group home resident. Agree with antibiotics. Has positive PCR for COVID-19. Saturating well on 2L/min O2 Yandel Yap M.D. Subjective ROS Limited/Unobtainable: Yes Interval Events: None new Constitutional: Denies: fever HEENT: Repors: no symptoms Respiratory: Reports: no symptoms Cardiovascular: Reports: no symptoms Gastrointestinal/Abdominal: Denies: nausea, vomiting, diarrhea Genitourinary: Reports: no symptoms Musculoskeletal: Denies: pain Allergies: Coded Allergies: No Known Allergies (Unverified , 09/03/14) Objective Last 24 Hour Vital Signs Date Time Temp Pulse Resp B/P (MAP) Pulse Ox O2 Delivery O2 Flow Rate FiO2 09/21/19 09:00 Nasal Cannula 2.0 09/21/19 08:18 89 146/60 09/21/19 08:17 89 146/60 09/21/19 08:00 98.9 89 18 146/60 (88) 96 09/21/19 04:00 98.7 93 20 137/65 (89) 93 09/21/19 00:00 98.1 86 18 128/63 (84) 93 09/20/19 21:00 Nasal Cannula 2.0 09/20/19 20:00 99.3 85 18 114/57 (76) 94 09/20/19 16:00 97.5 71 17 132/69 (90) 98 09/20/19 12:02 98.5 78 20 132/68 (89) 95 Intake and Output 09/20/19 09/21/19 19:00 07:00 Intake Total 375 ml 660 ml Balance 375 ml 660 ml Intake Oral 360 ml IV Total 375 ml Other 300 ml # Voids 2 General Appearance: no acute distress HEENT: mucous membranes moist Respiratory/Chest: chest wall non-tender Cardiovascular: normal peripheral pulses Abdomen: soft, non tender Extremities: no edema Neurologic/Psychiatric: other - sleeping Current Medications Medications (Trade) Dose Ordered Sig/Yaz Route PRN Reason Start Time Stop Time Status Last Admin Dose Admin Acetaminophen (Tylenol) 650 mg Q4H PRN ORAL Mild Pain (Pain Scale 1-3) 09/12/19 22:15 10/12/19 22:14 09/18/19 03:57 Albuterol/ Ipratropium (Combivent Respimat) 1 puff Q4H PRN INH SOB/WHEEZING 09/12/19 22:45 10/12/19 22:44 Amlodipine Besylate (Norvasc) 10 mg DAILY ORAL 09/13/19 09:00 10/13/19 08:59 09/21/19 08:18 Ascorbic Acid (Vitamin C) 500 mg DAILY ORAL 09/13/19 09:00 10/13/19 08:59 09/21/19 08:17 Brimonidine Tartrate (Alphagan) 1 drop TWICE A DAY BOTH EYES 09/13/19 09:00 12/12/19 08:59 09/21/19 08:19 Docusate Sodium (Colace) 100 mg BID ORAL 09/13/19 09:00 10/13/19 08:59 09/20/19 08:53 Furosemide (Lasix) 40 mg DAILY ORAL 09/13/19 09:00 10/13/19 08:59 09/21/19 08:18 Gabapentin (Neurontin) 300 mg THREE TIMES A DAY ORAL 09/13/19 09:00 10/13/19 08:59 09/21/19 08:18 Guaifenesin (Robitussin) 200 mg Q4H PRN ORAL For Cough 09/12/19 22:30 12/11/19 22:29 Ibuprofen (Motrin) 600 mg Q6H PRN ORAL For Pain 09/12/19 22:30 10/12/19 22:29 Lorazepam (Ativan 2mg/ml 1ml) 1 mg Q6H PRN IV For Anxiety 09/20/19 19:15 09/27/19 19:14 Lorazepam (Ativan) 1 mg Q6H PRN ORAL For Anxiety 09/20/19 19:15 09/27/19 19:14 Metoprolol Tartrate (Lopressor) 100 mg DAILY ORAL 09/13/19 09:00 12/12/19 08:59 09/21/19 08:17 Multivitamins Therapeutic (Therapeutic Multivitamin) 1 ea DAILY ORAL 09/13/19 09:00 10/13/19 08:59 09/21/19 08:18 Pantoprazole (Protonix) 40 mg DAILY ORAL 09/13/19 09:00 10/13/19 08:59 09/21/19 08:18 Polyethylene Glycol (Miralax) 17 gm DAILY ORAL 09/13/19 09:00 10/13/19 08:59 09/20/19 08:53 Yandel Yap MD Sep 21, 2019 11:48
[2019-09-21 12:00] VITALS: BP 128/57
[2019-09-21 16:00] VITALS: BP 125/60
--- NOTE | 2019-09-21 16:39 | NUR ---
CASE MANAGEMENT:REVIEW SI;COVID-19 PNA. BRONCHITIS. 98.9 93 20 146/60 93% 2L NC IS;DUO NEB HHN Q4 HRS PRN PROTONIX PO QD LASIX PO QD VIT C PO QD ROBITUSSIN PO Q4 HRS NORVASC PO QD DEPAKOTE PO QHS MED SURG STATUS DCP;PATIENT IS FROM [facility] PLAN;REPEAT COVID-19 SWAB TODAY
--- NOTE | 2019-09-21 17:14 | Progress Note ---
DATE: 09/21/2019 SUBJECTIVE: The patient is currently doing fine. He is in isolation room. His COVID test is pending. PHYSICAL EXAMINATION: VITAL SIGNS: Blood pressure 140/90, pulse 90, respirations 18, no fever. HEENT: NAD. CHEST: Bilaterally few crackles . CARDIOVASCULAR: Regular rhythm. No gallop. No murmur. ABDOMEN: Soft. EXTREMITIES: CCE. NEUROLOGIC: Generalized weakness. ASSESSMENT: 1. COVID pneumonia. 2. COPD. 3. . 4. Hypertension. PLAN: 1. Discussed with Dr. King. 2. Waiting for COVID test. 3. Continue current treatment. 4. Continue isolation. Vincent Foote M.D. DR: Lynne JOB#: [id number] CC:
--- NOTE | 2019-09-21 19:30 | NUR ---
HAND-OFF: Report given to Rayray.
[2019-09-21 20:00] VITALS: BP 152/74
--- NOTE | 2019-09-21 20:00 | NUR ---
NURSE NOTES: Patient received in bed, on o2 via NC. No acute distress at this time. No IV site, MD aware. Bed is locked in low position, call light in reach. Will continue close monitoring.
[2019-09-22] VITALS: BP 140/74
[2019-09-22 04:00] VITALS: BP 129/63
--- NOTE | 2019-09-22 04:14 | Progress Note ---
DATE: 09/21/2019 HISTORY OF PRESENT ILLNESS: Patient was agitated today as well as combative last night last night difficult to redirect, confused. The patient is COVID-19 positive. He is [place]-speaking only. MENTAL STATUS EXAMINATION: The patient is alert, disoriented to situation. Mood is agitated. Affect is flat. Thought process is concrete. Thought content, no suicidal or homicidal ideations. Cognition is impaired. Insight and judgment impaired. ASSESSMENT: Dementia with behavior disturbance. PLAN: 1. We will start the patient on Ativan as needed. 2. Depakote 250 mg at bedtime. 3. Discussed with Dr. Foote. Bhavin Bailon M.D. DR: Kimberly JOB#: [id number] CC:
--- NOTE | 2019-09-22 06:58 | NUR ---
NURSE NOTES: Patient was cleaned and dressing changed on sacrum. Patient refused to elevate feet/legs.
--- NOTE | 2019-09-22 07:35 | NUR ---
HAND-OFF: Report given to Valentin TREVIÑO.
--- NOTE | 2019-09-22 07:40 | NUR ---
patient is in the bed asleep. respiration even and non-labored. skin is warm and dry to touch. no facial grimace for pain and discomfort noted at this time. call light is placed within reach.
[2019-09-22 08:00] VITALS: BP 146/71
[2019-09-22] MEDS: Metoprolol Tartrate 100mg tab ORAL SCH (09:00)
[2019-09-22] MEDS: Brimonidine 0.2% Opth Sol BOTH EYES SCH ×2 (09:00→18:18)
[2019-09-22] MEDS: Docusate 100mg cap ORAL SCH ×2 (09:00→18:18)
[2019-09-22] MEDS: Ascorbic Acid 500mg tab ORAL SCH (09:00)
[2019-09-22] MEDS: Miralax 17gm pkt ORAL SCH (09:00)
[2019-09-22] MEDS: Multivitamin w/Minerals tab ORAL SCH (09:00)
[2019-09-22] MEDS: Furosemide 40mg tab ORAL SCH (09:00)
--- NOTE | 2019-09-22 10:06 | NUR ---
RD ASSESSMENT & RECOMMENDATIONS SEE CARE ACTIVITY FOR COMPLETE ASSESSMENT DAILY ESTIMATED NEEDS: Needs based on wound, 67kg 25-30 kcals/kg total kcals 1.25-1.5 g protein/kg 83-100 g total protein 25-30 mL/kg total fluid mLs NUTRITION DIAGNOSIS: Increased protein intake needs R/T wound healing as evidenced by pt admitted w/ partial thickness shearing with surrounding non-blanchable erythema at R L gluteal cheeks and cleft of buttocks, and non-blanching erythema R and L heels. CURRENT DIET:REGULAR PO DIET RECOMMENDATIONS: LOW NA/ texture as tolerated ADDITIONAL RECOMMENDATIONS: * SNF: HT=65" QZ=304bri (08/27/19) * Monitor PO intake -> decreasing at this time * Wound healing: continue MVI + Vit C + Carlos BID * Calibrated daily weights -> pt on Lasix * Maintain liberalized Regular if poor PO continues * Ensure Enlive BID w/ variable/poor PO * Updated LYTES as able, pt on lasix
--- NOTE | 2019-09-22 11:00 | Infectious Diseases Prog Note ---
Assessment/Plan Assessment/Plan antibiotics : none A 1. COVID 19 pneumonia s/p hydroxychloroquine rx 2. bronchitis 3. CVA P 1. continue off antibiotics 2. will follow up cultures 3. continue isolation Subjective ROS Limited/Unobtainable: Yes Allergies: Coded Allergies: No Known Allergies (Unverified , 09/03/14) Objective Vital Signs Last 24 Hour Vital Signs Date Time Temp Pulse Resp B/P (MAP) Pulse Ox O2 Delivery O2 Flow Rate FiO2 09/22/19 09:00 95 146/71 09/22/19 09:00 95 146/71 09/22/19 08:00 97.5 95 19 146/71 (96) 95 09/22/19 04:00 98.5 73 20 129/63 (85) 92 09/22/19 00:00 98.0 95 20 140/74 (96) 94 09/21/19 21:00 Nasal Cannula 2.0 09/21/19 20:00 98.5 97 20 152/74 (100) 93 09/21/19 16:00 98.1 88 17 125/60 (81) 99 09/21/19 12:00 98.2 78 19 128/57 (80) 98 Height (Feet): 5 Height (Inches): 11.00 Weight (Pounds): 200 Current Medications Medications (Trade) Dose Ordered Sig/Yaz Route PRN Reason Start Time Stop Time Status Last Admin Dose Admin Acetaminophen (Tylenol) 650 mg Q4H PRN ORAL Mild Pain (Pain Scale 1-3) 09/12/19 22:15 10/12/19 22:14 09/18/19 03:57 Albuterol/ Ipratropium (Combivent Respimat) 1 puff Q4H PRN INH SOB/WHEEZING 09/12/19 22:45 10/12/19 22:44 Amlodipine Besylate (Norvasc) 10 mg DAILY ORAL 09/13/19 09:00 10/13/19 08:59 09/22/19 09:00 Ascorbic Acid (Vitamin C) 500 mg DAILY ORAL 09/13/19 09:00 10/13/19 08:59 09/22/19 09:00 Brimonidine Tartrate (Alphagan) 1 drop TWICE A DAY BOTH EYES 09/13/19 09:00 12/12/19 08:59 09/22/19 09:00 Divalproex Sodium (Depakote) 250 mg BEDTIME ORAL 09/21/19 21:00 10/21/19 20:59 09/21/19 20:32 Docusate Sodium (Colace) 100 mg BID ORAL 09/13/19 09:00 10/13/19 08:59 09/22/19 09:00 Furosemide (Lasix) 40 mg DAILY ORAL 09/13/19 09:00 10/13/19 08:59 09/22/19 09:00 Gabapentin (Neurontin) 300 mg THREE TIMES A DAY ORAL 09/13/19 09:00 10/13/19 08:59 09/22/19 09:00 Guaifenesin (Robitussin) 200 mg Q4H PRN ORAL For Cough 09/12/19 22:30 12/11/19 22:29 Ibuprofen (Motrin) 600 mg Q6H PRN ORAL For Pain 09/12/19 22:30 10/12/19 22:29 Lorazepam (Ativan 2mg/ml 1ml) 1 mg Q6H PRN IV For Anxiety 09/20/19 19:15 09/27/19 19:14 Lorazepam (Ativan) 1 mg Q6H PRN ORAL For Anxiety 09/20/19 19:15 09/27/19 19:14 Metoprolol Tartrate (Lopressor) 100 mg DAILY ORAL 09/13/19 09:00 12/12/19 08:59 09/22/19 09:00 Multivitamins Therapeutic (Therapeutic Multivitamin) 1 ea DAILY ORAL 09/13/19 09:00 10/13/19 08:59 09/22/19 09:00 Pantoprazole (Protonix) 40 mg DAILY ORAL 09/13/19 09:00 10/13/19 08:59 09/22/19 09:00 Polyethylene Glycol (Miralax) 17 gm DAILY ORAL 09/13/19 09:00 10/13/19 08:59 09/22/19 09:00 Maxi King MD Sep 22, 2019 11:00
--- NOTE | 2019-09-22 11:41 | Pulmonology Progress Note ---
Assessment/Plan Assessment/Plan IMPRESSION: 1. History of previous UTI. 2. Bronchitis. 3. Positive COVID-19. 4. CVA. DISCUSSION: The patient is a [facility] resident. Agree with antibiotics. Has positive PCR for COVID-19. Saturating well on 2L/min O2 Yandel Yap M.D. Subjective ROS Limited/Unobtainable: Yes Interval Events: None new Constitutional: Denies: fever HEENT: Repors: no symptoms Respiratory: Reports: no symptoms Cardiovascular: Reports: no symptoms Gastrointestinal/Abdominal: Denies: nausea, vomiting, diarrhea Genitourinary: Reports: no symptoms Musculoskeletal: Denies: pain Allergies: Coded Allergies: No Known Allergies (Unverified , 09/03/14) Objective Last 24 Hour Vital Signs Date Time Temp Pulse Resp B/P (MAP) Pulse Ox O2 Delivery O2 Flow Rate FiO2 09/22/19 09:00 95 146/71 09/22/19 09:00 95 146/71 09/22/19 08:00 97.5 95 19 146/71 (96) 95 09/22/19 04:00 98.5 73 20 129/63 (85) 92 09/22/19 00:00 98.0 95 20 140/74 (96) 94 09/21/19 21:00 Nasal Cannula 2.0 09/21/19 20:00 98.5 97 20 152/74 (100) 93 09/21/19 16:00 98.1 88 17 125/60 (81) 99 09/21/19 12:00 98.2 78 19 128/57 (80) 98 Intake and Output 09/21/19 09/22/19 19:00 07:00 Intake Total 240 ml Balance 240 ml Intake Oral 240 ml # Voids 3 4 General Appearance: no acute distress HEENT: mucous membranes moist Respiratory/Chest: chest wall non-tender Cardiovascular: normal peripheral pulses Abdomen: soft, non tender Extremities: no edema Neurologic/Psychiatric: other - sleeping Current Medications Medications (Trade) Dose Ordered Sig/Yaz Route PRN Reason Start Time Stop Time Status Last Admin Dose Admin Acetaminophen (Tylenol) 650 mg Q4H PRN ORAL Mild Pain (Pain Scale 1-3) 09/12/19 22:15 10/12/19 22:14 09/18/19 03:57 Albuterol/ Ipratropium (Combivent Respimat) 1 puff Q4H PRN INH SOB/WHEEZING 09/12/19 22:45 10/12/19 22:44 Amlodipine Besylate (Norvasc) 10 mg DAILY ORAL 09/13/19 09:00 10/13/19 08:59 09/22/19 09:00 Ascorbic Acid (Vitamin C) 500 mg DAILY ORAL 09/13/19 09:00 10/13/19 08:59 09/22/19 09:00 Brimonidine Tartrate (Alphagan) 1 drop TWICE A DAY BOTH EYES 09/13/19 09:00 12/12/19 08:59 09/22/19 09:00 Divalproex Sodium (Depakote) 250 mg BEDTIME ORAL 09/21/19 21:00 10/21/19 20:59 09/21/19 20:32 Docusate Sodium (Colace) 100 mg BID ORAL 09/13/19 09:00 10/13/19 08:59 09/22/19 09:00 Furosemide (Lasix) 40 mg DAILY ORAL 09/13/19 09:00 10/13/19 08:59 09/22/19 09:00 Gabapentin (Neurontin) 300 mg THREE TIMES A DAY ORAL 09/13/19 09:00 10/13/19 08:59 09/22/19 09:00 Guaifenesin (Robitussin) 200 mg Q4H PRN ORAL For Cough 09/12/19 22:30 12/11/19 22:29 Ibuprofen (Motrin) 600 mg Q6H PRN ORAL For Pain 09/12/19 22:30 10/12/19 22:29 Lorazepam (Ativan 2mg/ml 1ml) 1 mg Q6H PRN IV For Anxiety 09/20/19 19:15 09/27/19 19:14 Lorazepam (Ativan) 1 mg Q6H PRN ORAL For Anxiety 09/20/19 19:15 09/27/19 19:14 Metoprolol Tartrate (Lopressor) 100 mg DAILY ORAL 09/13/19 09:00 12/12/19 08:59 09/22/19 09:00 Multivitamins Therapeutic (Therapeutic Multivitamin) 1 ea DAILY ORAL 09/13/19 09:00 10/13/19 08:59 09/22/19 09:00 Pantoprazole (Protonix) 40 mg DAILY ORAL 09/13/19 09:00 10/13/19 08:59 09/22/19 09:00 Polyethylene Glycol (Miralax) 17 gm DAILY ORAL 09/13/19 09:00 10/13/19 08:59 09/22/19 09:00 Yandel Yap MD Sep 22, 2019 11:41
[2019-09-22 12:00] VITALS: BP 139/67
[2019-09-22 16:00] VITALS: BP 135/62
--- NOTE | 2019-09-22 16:00 | Progress Note ---
DATE: 09/22/2019 SUBJECTIVE: This is an 83-year-old male, currently in bed, in isolation, doing okay. PHYSICAL EXAMINATION: VITAL SIGNS: Blood pressure 130/70, pulse 74, respirations 18. HEENT: NAD. CHEST: Bilateral few crackles. CARDIOVASCULAR: Regular rhythm. No gallop. No murmur. ABDOMEN: Soft. Positive bowel sounds. Nontender. EXTREMITIES: No edema. GENITOURINARY: Deferred. LABORATORY DATA: The patient has no labs. ASSESSMENT: 1. Fever, rule out sepsis. 2. COVID positive. 3. Pneumonia. 4. CVA. 5. Hypertension. PLAN: 1. Discussed with Dr. King. 2. Repeat COVID test. 3. Continue antibiotic. 4. Continue isolation. 5. Continue supportive treatment. Vincent Foote M.D. DR: Lynne JOB#: [id number] CC:
--- NOTE | 2019-09-22 19:22 | NUR ---
HAND-OFF: Report given to Kb.
--- NOTE | 2019-09-22 19:25 | NUR ---
NURSE NOTES: Pt. received from KAMILA Hanson. Pt. AAOx3, with NC at 2L, breathing even and unlabored, no complaints of pain. No IV access, endorsed by day shift nurse that MD is aware, no orders for reinsertion. Bed is low and locked, side rails x3 up, bed alarm active, and call light is in reach. Will continue to monitor.
[2019-09-22 20:00] VITALS: BP 100/66
[2019-09-23] VITALS: BP 141/68
--- NOTE | 2019-09-23 00:20 | Psych Consult Progress Note ---
Psychiatry Progress Note Psychiatry Progress Note Subjective 09/21 the pt is confused and has episodes of anxious Medications Current Medications Medications (Trade) Dose Ordered Sig/Yaz Route PRN Reason Start Time Stop Time Status Last Admin Dose Admin Acetaminophen (Tylenol) 650 mg Q4H PRN ORAL Mild Pain (Pain Scale 1-3) 09/12/19 22:15 10/12/19 22:14 09/18/19 03:57 Albuterol/ Ipratropium (Combivent Respimat) 1 puff Q4H PRN INH SOB/WHEEZING 09/12/19 22:45 10/12/19 22:44 Amlodipine Besylate (Norvasc) 10 mg DAILY ORAL 09/13/19 09:00 10/13/19 08:59 09/22/19 09:00 Ascorbic Acid (Vitamin C) 500 mg DAILY ORAL 09/13/19 09:00 10/13/19 08:59 09/22/19 09:00 Brimonidine Tartrate (Alphagan) 1 drop TWICE A DAY BOTH EYES 09/13/19 09:00 12/12/19 08:59 09/22/19 18:18 Divalproex Sodium (Depakote) 250 mg BEDTIME ORAL 09/21/19 21:00 10/21/19 20:59 09/22/19 20:05 Docusate Sodium (Colace) 100 mg BID ORAL 09/13/19 09:00 10/13/19 08:59 09/22/19 18:18 Furosemide (Lasix) 40 mg DAILY ORAL 09/13/19 09:00 10/13/19 08:59 09/22/19 09:00 Gabapentin (Neurontin) 300 mg THREE TIMES A DAY ORAL 09/13/19 09:00 10/13/19 08:59 09/22/19 18:18 Guaifenesin (Robitussin) 200 mg Q4H PRN ORAL For Cough 09/12/19 22:30 12/11/19 22:29 Ibuprofen (Motrin) 600 mg Q6H PRN ORAL For Pain 09/12/19 22:30 10/12/19 22:29 Lorazepam (Ativan 2mg/ml 1ml) 1 mg Q6H PRN IV For Anxiety 09/20/19 19:15 09/27/19 19:14 Lorazepam (Ativan) 1 mg Q6H PRN ORAL For Anxiety 09/20/19 19:15 09/27/19 19:14 Metoprolol Tartrate (Lopressor) 100 mg DAILY ORAL 09/13/19 09:00 12/12/19 08:59 09/22/19 09:00 Multivitamins Therapeutic (Therapeutic Multivitamin) 1 ea DAILY ORAL 09/13/19 09:00 10/13/19 08:59 09/22/19 09:00 Pantoprazole (Protonix) 40 mg DAILY ORAL 09/13/19 09:00 10/13/19 08:59 09/22/19 09:00 Polyethylene Glycol (Miralax) 17 gm DAILY ORAL 09/13/19 09:00 10/13/19 08:59 09/22/19 09:00 Allergies: Coded Allergies: No Known Allergies (Unverified , 09/03/14) Objective Data Height (Feet): 5 Height (Inches): 11.00 Weight (Pounds): 200 General Appearance: no apparent distress, alert, confused, agitated Additional Comments: alert, disoriented to situation. Mood is agitated. Affect is flat. Thought process is concrete. Thought content, no suicidal or homicidal ideations. Cognition is impaired. Insight and judgment impaired. Assessment/Plan [place] I: Dementia with behavior disturbance. Assessment/Plan: PLAN: 1. Ativan as needed. 2. Depakote 250 mg at bedtime. Bhavin Bailon MD Sep 23, 2019 00:20
[2019-09-23 04:00] VITALS: BP 133/69
--- NOTE | 2019-09-23 07:15 | NUR ---
HAND-OFF: Report given to KAMILA Lomeli.
[2019-09-23 08:00] VITALS: BP 129/64
--- NOTE | 2019-09-23 08:01 | NUR ---
NURSE NOTES: Patient awake, alert x3, [place]an speaking; On Nasal Cannula 2 Liters, no sing of distress and shortness of breath; NO IV access, MD aware; foot drops on both legs and patient refused SCD; side rails up x2, breaks engaged, bed alarm and bed at lowest position; call light within reach; will care out the plan of care.
[2019-09-23] MEDS: Multivitamin w/Minerals tab ORAL SCH (09:33)
[2019-09-23] MEDS: Furosemide 40mg tab ORAL SCH (09:34)
[2019-09-23] MEDS: Brimonidine 0.2% Opth Sol BOTH EYES SCH ×2 (09:34→17:15)
[2019-09-23] MEDS: Docusate 100mg cap ORAL SCH ×2 (09:34→17:16)
[2019-09-23] MEDS: Ascorbic Acid 500mg tab ORAL SCH (09:34)
[2019-09-23] MEDS: Metoprolol Tartrate 100mg tab ORAL SCH (09:34)
[2019-09-23] MEDS: Miralax 17gm pkt ORAL SCH (09:35)
--- NOTE | 2019-09-23 10:08 | Pulmonology Progress Note ---
Assessment/Plan Assessment/Plan IMPRESSION: 1. History of previous UTI. 2. Bronchitis. 3. Positive COVID-19. 4. CVA. DISCUSSION: The patient is a [facility] resident. Agree with antibiotics. Has positive PCR for COVID-19. Saturating well on 2L/min O2 Yandel Yap M.D. Subjective ROS Limited/Unobtainable: Yes Interval Events: None new Constitutional: Denies: fever HEENT: Repors: no symptoms Respiratory: Reports: no symptoms Cardiovascular: Reports: no symptoms Gastrointestinal/Abdominal: Denies: nausea, vomiting, diarrhea Genitourinary: Reports: no symptoms Musculoskeletal: Denies: pain Allergies: Coded Allergies: No Known Allergies (Unverified , 09/03/14) Objective Last 24 Hour Vital Signs Date Time Temp Pulse Resp B/P (MAP) Pulse Ox O2 Delivery O2 Flow Rate FiO2 09/23/19 09:34 72 129/64 09/23/19 09:34 72 129/64 09/23/19 08:00 96.6 72 19 129/64 (85) 95 09/23/19 04:00 98.7 89 19 133/69 (90) 93 09/23/19 00:00 98.1 77 20 141/68 (92) 94 09/22/19 21:00 Nasal Cannula 2.0 09/22/19 20:00 98.6 83 19 100/66 (77) 91 09/22/19 16:00 98.9 80 18 135/62 (86) 97 09/22/19 12:00 98.1 82 18 139/67 (91) 98 Intake and Output 09/22/19 09/23/19 19:00 07:00 Output Total 0 ml Balance 0 ml Output Urine Total 0 ml # Voids 2 General Appearance: no acute distress HEENT: mucous membranes moist Respiratory/Chest: chest wall non-tender Cardiovascular: normal peripheral pulses Abdomen: soft, non tender Extremities: no edema Neurologic/Psychiatric: other - sleeping Current Medications Medications (Trade) Dose Ordered Sig/Yaz Route PRN Reason Start Time Stop Time Status Last Admin Dose Admin Acetaminophen (Tylenol) 650 mg Q4H PRN ORAL Mild Pain (Pain Scale 1-3) 09/12/19 22:15 10/12/19 22:14 09/18/19 03:57 Albuterol/ Ipratropium (Combivent Respimat) 1 puff Q4H PRN INH SOB/WHEEZING 09/12/19 22:45 10/12/19 22:44 Amlodipine Besylate (Norvasc) 10 mg DAILY ORAL 09/13/19 09:00 10/13/19 08:59 09/23/19 09:34 Ascorbic Acid (Vitamin C) 500 mg DAILY ORAL 09/13/19 09:00 10/13/19 08:59 09/23/19 09:34 Brimonidine Tartrate (Alphagan) 1 drop TWICE A DAY BOTH EYES 09/13/19 09:00 12/12/19 08:59 09/23/19 09:34 Divalproex Sodium (Depakote) 250 mg BEDTIME ORAL 09/21/19 21:00 10/21/19 20:59 09/22/19 20:05 Docusate Sodium (Colace) 100 mg BID ORAL 09/13/19 09:00 10/13/19 08:59 09/23/19 09:34 Furosemide (Lasix) 40 mg DAILY ORAL 09/13/19 09:00 10/13/19 08:59 09/23/19 09:34 Gabapentin (Neurontin) 300 mg THREE TIMES A DAY ORAL 09/13/19 09:00 10/13/19 08:59 09/23/19 09:33 Guaifenesin (Robitussin) 200 mg Q4H PRN ORAL For Cough 09/12/19 22:30 12/11/19 22:29 Ibuprofen (Motrin) 600 mg Q6H PRN ORAL For Pain 09/12/19 22:30 10/12/19 22:29 Lorazepam (Ativan 2mg/ml 1ml) 1 mg Q6H PRN IV For Anxiety 09/20/19 19:15 09/27/19 19:14 Lorazepam (Ativan) 1 mg Q6H PRN ORAL For Anxiety 09/20/19 19:15 09/27/19 19:14 Metoprolol Tartrate (Lopressor) 100 mg DAILY ORAL 09/13/19 09:00 12/12/19 08:59 09/23/19 09:34 Multivitamins Therapeutic (Therapeutic Multivitamin) 1 ea DAILY ORAL 09/13/19 09:00 10/13/19 08:59 09/23/19 09:33 Pantoprazole (Protonix) 40 mg DAILY ORAL 09/13/19 09:00 10/13/19 08:59 09/23/19 09:33 Polyethylene Glycol (Miralax) 17 gm DAILY ORAL 09/13/19 09:00 10/13/19 08:59 09/23/19 09:35 Yandel Yap MD Sep 23, 2019 10:08
--- NOTE | 2019-09-23 10:32 | Infectious Diseases Prog Note ---
Assessment/Plan Assessment/Plan antibiotics : none A 1. COVID 19 pneumonia s/p hydroxychloroquine rx 2. bronchitis 3. CVA P 1. continue off antibiotics 2. will follow up cultures 3. continue isolation 4. COVID 19 test pending Subjective ROS Limited/Unobtainable: Yes Allergies: Coded Allergies: No Known Allergies (Unverified , 09/03/14) Objective Vital Signs Last 24 Hour Vital Signs Date Time Temp Pulse Resp B/P (MAP) Pulse Ox O2 Delivery O2 Flow Rate FiO2 09/23/19 09:34 72 129/64 09/23/19 09:34 72 129/64 09/23/19 08:00 96.6 72 19 129/64 (85) 95 09/23/19 04:00 98.7 89 19 133/69 (90) 93 09/23/19 00:00 98.1 77 20 141/68 (92) 94 09/22/19 21:00 Nasal Cannula 2.0 09/22/19 20:00 98.6 83 19 100/66 (77) 91 09/22/19 16:00 98.9 80 18 135/62 (86) 97 09/22/19 12:00 98.1 82 18 139/67 (91) 98 Height (Feet): 5 Height (Inches): 11.00 Weight (Pounds): 174 Current Medications Medications (Trade) Dose Ordered Sig/Yaz Route PRN Reason Start Time Stop Time Status Last Admin Dose Admin Acetaminophen (Tylenol) 650 mg Q4H PRN ORAL Mild Pain (Pain Scale 1-3) 09/12/19 22:15 10/12/19 22:14 09/18/19 03:57 Albuterol/ Ipratropium (Combivent Respimat) 1 puff Q4H PRN INH SOB/WHEEZING 09/12/19 22:45 10/12/19 22:44 Amlodipine Besylate (Norvasc) 10 mg DAILY ORAL 09/13/19 09:00 10/13/19 08:59 09/23/19 09:34 Ascorbic Acid (Vitamin C) 500 mg DAILY ORAL 09/13/19 09:00 10/13/19 08:59 09/23/19 09:34 Brimonidine Tartrate (Alphagan) 1 drop TWICE A DAY BOTH EYES 09/13/19 09:00 12/12/19 08:59 09/23/19 09:34 Divalproex Sodium (Depakote) 250 mg BEDTIME ORAL 09/21/19 21:00 10/21/19 20:59 09/22/19 20:05 Docusate Sodium (Colace) 100 mg BID ORAL 09/13/19 09:00 10/13/19 08:59 09/23/19 09:34 Furosemide (Lasix) 40 mg DAILY ORAL 09/13/19 09:00 10/13/19 08:59 09/23/19 09:34 Gabapentin (Neurontin) 300 mg THREE TIMES A DAY ORAL 09/13/19 09:00 10/13/19 08:59 09/23/19 09:33 Guaifenesin (Robitussin) 200 mg Q4H PRN ORAL For Cough 09/12/19 22:30 12/11/19 22:29 Ibuprofen (Motrin) 600 mg Q6H PRN ORAL For Pain 09/12/19 22:30 10/12/19 22:29 Lorazepam (Ativan 2mg/ml 1ml) 1 mg Q6H PRN IV For Anxiety 09/20/19 19:15 09/27/19 19:14 Lorazepam (Ativan) 1 mg Q6H PRN ORAL For Anxiety 09/20/19 19:15 09/27/19 19:14 Metoprolol Tartrate (Lopressor) 100 mg DAILY ORAL 09/13/19 09:00 12/12/19 08:59 09/23/19 09:34 Multivitamins Therapeutic (Therapeutic Multivitamin) 1 ea DAILY ORAL 09/13/19 09:00 10/13/19 08:59 09/23/19 09:33 Pantoprazole (Protonix) 40 mg DAILY ORAL 09/13/19 09:00 10/13/19 08:59 09/23/19 09:33 Polyethylene Glycol (Miralax) 17 gm DAILY ORAL 09/13/19 09:00 10/13/19 08:59 09/23/19 09:35 Maxi King MD Sep 23, 2019 10:32
[2019-09-23 12:00] VITALS: BP 126/61
[2019-09-23 16:00] VITALS: BP 125/66
--- NOTE | 2019-09-23 17:02 | NUR ---
CASE MANAGEMENT:REVIEW SI;COVID-19 PNA. BRONCHITIS. 98.7 89 20 141/68 93% 2L NC IS;DUO NEB HHN Q4 HRS PRN PROTONIX PO QD LASIX PO QD VIT C PO QD ROBITUSSIN PO Q4 HRS NORVASC PO QD DEPAKOTE PO QHS MED SURG STATUS DCP[facility]REPEAT COVID-19 RESULT PENDING
--- NOTE | 2019-09-23 19:05 | NUR ---
HAND-OFF: Report given to KAMILA Adhikari.
--- NOTE | 2019-09-23 19:05 | NUR ---
NURSE NOTES: Report received from Yani TREVIÑO. Patient is awake and alert x 3 .Patient noted to be on 2 liters of oxygen via nasal canula. Denies shortness of breath and chest pain at this time. Patient noted to have no IV access, MD aware per Yani TREVIÑO. Patient on droplet and contact precautions due to positive covid 19 testing. Patient has two more covid 19 test pending. Bed locked in lowest position and locked. Bed alarmed, patient verbalized he will use call light when needs assistance. Will continue to follow plan of care.
[2019-09-23 20:00] VITALS: BP 126/68
[2019-09-24] VITALS: BP 125/59
--- NOTE | 2019-09-24 | Progress Note ---
DATE: 09/23/2019 SUBJECTIVE: This 83-year-old male came to the emergency room for pneumonia and COVID positive. The patient is currently in isolation, doing better. He has no fever, short of breath is improving. PHYSICAL EXAMINATION: VITAL SIGNS: Blood pressure 160/70, pulse is 84, respirations 18, no fever. HEENT: Eyes are open. NECK: Supple. CHEST: Bilaterally decreased breath sounds. CARDIOVASCULAR: Regular rhythm. No gallop. No murmur. ABDOMEN: Soft. Positive bowel sounds. Nontender. EXTREMITIES: CCE. NEUROLOGICAL: The patient is sitting in the bed. ASSESSMENT AND PLAN: 1. Pneumonia. 2. COVID-19 positive. 3. Hypertension. 4. CVA. Waiting for second COVID test and continue oxygen and continue bronchodilator treatments, antibiotics. ID is on consult. Vincent Foote M.D. DR: Dennis JOB#: [id number] CC:
--- NOTE | 2019-09-24 01:45 | Progress Note ---
DATE: 09/23/2019 SUBJECTIVE: The patient is doing better today, calmer, more manageable, confused and disoriented. Episodes of anxiety. MENTAL STATUS EXAMINATION: The patient is alert, sitting, confused. Mood is anxious. Affect is flat. Thought process is concrete. Thought content, no suicidal or homicidal ideation. ASSESSMENT: Stable. PLAN: We will continue current medications. Bhavin Bailon M.D. DR: Kimberly JOB#: [id number] CC:
[2019-09-24 04:00] VITALS: BP 127/66
--- NOTE | 2019-09-24 07:15 | NUR ---
NURSE NOTES: Patient awake, alert x3, Omani speaking; on Nasal Cannula 2 Liters, no sing of distress and shortness of breath; NO IV access, MD aware; the last swaps for COVID-19 pending; sacral dressing dry and intact; side rails up x2, breaks engaged, bed at lowest position, bed alarm on; call light within reach; will keep monitoring.
--- NOTE | 2019-09-24 07:20 | NUR ---
HAND-OFF: Report given to Yani TREVIÑO.
[2019-09-24 08:00] VITALS: BP 115/67
[2019-09-24] MEDS: Furosemide 40mg tab ORAL SCH (09:20)
[2019-09-24] MEDS: Brimonidine 0.2% Opth Sol BOTH EYES SCH ×2 (09:20→17:55)
[2019-09-24] MEDS: Docusate 100mg cap ORAL SCH ×2 (09:20→17:25)
[2019-09-24] MEDS: Ascorbic Acid 500mg tab ORAL SCH (09:20)
[2019-09-24] MEDS: Miralax 17gm pkt ORAL SCH (09:20)
[2019-09-24] MEDS: Metoprolol Tartrate 100mg tab ORAL SCH (09:20)
[2019-09-24] MEDS: Multivitamin w/Minerals tab ORAL SCH (09:20)
[2019-09-24 12:00] VITALS: BP 116/68
--- NOTE | 2019-09-24 12:14 | Pulmonology Progress Note ---
Assessment/Plan Assessment/Plan IMPRESSION: 1. History of previous UTI. 2. Bronchitis. 3. Positive COVID-19. 4. CVA. DISCUSSION: The [facility] is a [facility]. Agree with antibiotics. Has positive PCR for COVID-19. Saturating well on 2L/min O2 Yandel Yap M.D. Subjective ROS Limited/Unobtainable: Yes Interval Events: None new Constitutional: Denies: fever HEENT: Repors: no symptoms Respiratory: Reports: no symptoms Cardiovascular: Reports: no symptoms Gastrointestinal/Abdominal: Denies: nausea, vomiting, diarrhea Genitourinary: Reports: no symptoms Musculoskeletal: Denies: pain Allergies: Coded Allergies: No Known Allergies (Unverified , 09/03/14) Objective Last 24 Hour Vital Signs Date Time Temp Pulse Resp B/P (MAP) Pulse Ox O2 Delivery O2 Flow Rate FiO2 09/24/19 09:20 83 115/67 09/24/19 09:20 83 115/67 09/24/19 09:00 Nasal Cannula 2.0 09/24/19 08:00 98.1 83 20 115/67 (83) 95 09/24/19 05:52 Nasal Cannula 2.0 09/24/19 04:00 98.1 78 18 127/66 (86) 97 09/24/19 00:00 98.2 78 18 125/59 (81) 96 09/23/19 21:00 Nasal Cannula 2.0 09/23/19 20:00 98.1 80 22 126/68 (87) 93 09/23/19 16:00 99.0 82 19 125/66 (85) 95 Intake and Output 09/23/19 09/24/19 19:00 07:00 Intake Total 600 ml Balance 600 ml Intake Oral 600 ml # Voids 3 1 General Appearance: no acute distress HEENT: mucous membranes moist Respiratory/Chest: chest wall non-tender Cardiovascular: normal peripheral pulses Abdomen: soft, non tender Extremities: no edema Neurologic/Psychiatric: other - sleeping Current Medications Medications (Trade) Dose Ordered Sig/Yaz Route PRN Reason Start Time Stop Time Status Last Admin Dose Admin Acetaminophen (Tylenol) 650 mg Q4H PRN ORAL Mild Pain (Pain Scale 1-3) 09/12/19 22:15 10/12/19 22:14 09/18/19 03:57 Albuterol/ Ipratropium (Combivent Respimat) 1 puff Q4H PRN INH SOB/WHEEZING 09/12/19 22:45 10/12/19 22:44 Amlodipine Besylate (Norvasc) 10 mg DAILY ORAL 09/13/19 09:00 10/13/19 08:59 09/24/19 09:20 Ascorbic Acid (Vitamin C) 500 mg DAILY ORAL 09/13/19 09:00 10/13/19 08:59 09/24/19 09:20 Brimonidine Tartrate (Alphagan) 1 drop TWICE A DAY BOTH EYES 09/13/19 09:00 12/12/19 08:59 09/24/19 09:20 Divalproex Sodium (Depakote) 250 mg BEDTIME ORAL 09/21/19 21:00 10/21/19 20:59 09/23/19 20:26 Docusate Sodium (Colace) 100 mg BID ORAL 09/13/19 09:00 10/13/19 08:59 09/24/19 09:20 Furosemide (Lasix) 40 mg DAILY ORAL 09/13/19 09:00 10/13/19 08:59 09/24/19 09:20 Gabapentin (Neurontin) 300 mg THREE TIMES A DAY ORAL 09/13/19 09:00 10/13/19 08:59 09/24/19 09:20 Guaifenesin (Robitussin) 200 mg Q4H PRN ORAL For Cough 09/12/19 22:30 12/11/19 22:29 Ibuprofen (Motrin) 600 mg Q6H PRN ORAL For Pain 09/12/19 22:30 10/12/19 22:29 Lorazepam (Ativan 2mg/ml 1ml) 1 mg Q6H PRN IV For Anxiety 09/20/19 19:15 09/27/19 19:14 Lorazepam (Ativan) 1 mg Q6H PRN ORAL For Anxiety 09/20/19 19:15 09/27/19 19:14 Metoprolol Tartrate (Lopressor) 100 mg DAILY ORAL 09/13/19 09:00 12/12/19 08:59 09/24/19 09:20 Multivitamins Therapeutic (Therapeutic Multivitamin) 1 ea DAILY ORAL 09/13/19 09:00 10/13/19 08:59 09/24/19 09:20 Pantoprazole (Protonix) 40 mg DAILY ORAL 09/13/19 09:00 10/13/19 08:59 09/24/19 09:20 Polyethylene Glycol (Miralax) 17 gm DAILY ORAL 09/13/19 09:00 10/13/19 08:59 09/24/19 09:20 Yandel Yap MD Sep 24, 2019 12:14
--- NOTE | 2019-09-24 13:05 | Infectious Diseases Prog Note ---
Assessment/Plan Assessment/Plan A 1. COVID 19 pneumonia 2. bronchitis 3. CVA P 1. Finished hydroxychloroquine course 2. will follow up repeated COVID19 test 3. continue isolation Subjective ROS Limited/Unobtainable: Yes Constitutional: Reports: no symptoms Respiratory: Reports: no symptoms Allergies: Coded Allergies: No Known Allergies (Unverified , 09/03/14) Objective Vital Signs Last 24 Hour Vital Signs Date Time Temp Pulse Resp B/P (MAP) Pulse Ox O2 Delivery O2 Flow Rate FiO2 09/24/19 12:00 98.4 78 20 116/68 (84) 95 09/24/19 09:20 83 115/67 09/24/19 09:20 83 115/67 09/24/19 09:00 Nasal Cannula 2.0 09/24/19 08:00 98.1 83 20 115/67 (83) 95 09/24/19 05:52 Nasal Cannula 2.0 09/24/19 04:00 98.1 78 18 127/66 (86) 97 09/24/19 00:00 98.2 78 18 125/59 (81) 96 09/23/19 21:00 Nasal Cannula 2.0 09/23/19 20:00 98.1 80 22 126/68 (87) 93 09/23/19 16:00 99.0 82 19 125/66 (85) 95 Height (Feet): 5 Height (Inches): 11.00 Weight (Pounds): 174 General Appearance: no acute distress HEENT: mucous membranes moist Respiratory/Chest: lungs clear Cardiovascular: normal rate Abdomen: soft, non tender Neurologic/Psychiatric: alert, responsive Current Medications Medications (Trade) Dose Ordered Sig/Yaz Route PRN Reason Start Time Stop Time Status Last Admin Dose Admin Acetaminophen (Tylenol) 650 mg Q4H PRN ORAL Mild Pain (Pain Scale 1-3) 09/12/19 22:15 10/12/19 22:14 09/18/19 03:57 Albuterol/ Ipratropium (Combivent Respimat) 1 puff Q4H PRN INH SOB/WHEEZING 09/12/19 22:45 10/12/19 22:44 Amlodipine Besylate (Norvasc) 10 mg DAILY ORAL 09/13/19 09:00 10/13/19 08:59 09/24/19 09:20 Ascorbic Acid (Vitamin C) 500 mg DAILY ORAL 09/13/19 09:00 10/13/19 08:59 09/24/19 09:20 Brimonidine Tartrate (Alphagan) 1 drop TWICE A DAY BOTH EYES 09/13/19 09:00 12/12/19 08:59 09/24/19 09:20 Divalproex Sodium (Depakote) 250 mg BEDTIME ORAL 09/21/19 21:00 10/21/19 20:59 09/23/19 20:26 Docusate Sodium (Colace) 100 mg BID ORAL 09/13/19 09:00 10/13/19 08:59 09/24/19 09:20 Furosemide (Lasix) 40 mg DAILY ORAL 09/13/19 09:00 10/13/19 08:59 09/24/19 09:20 Gabapentin (Neurontin) 300 mg THREE TIMES A DAY ORAL 09/13/19 09:00 10/13/19 08:59 09/24/19 12:59 Guaifenesin (Robitussin) 200 mg Q4H PRN ORAL For Cough 09/12/19 22:30 12/11/19 22:29 Ibuprofen (Motrin) 600 mg Q6H PRN ORAL For Pain 09/12/19 22:30 10/12/19 22:29 Lorazepam (Ativan 2mg/ml 1ml) 1 mg Q6H PRN IV For Anxiety 09/20/19 19:15 09/27/19 19:14 Lorazepam (Ativan) 1 mg Q6H PRN ORAL For Anxiety 09/20/19 19:15 09/27/19 19:14 Metoprolol Tartrate (Lopressor) 100 mg DAILY ORAL 09/13/19 09:00 12/12/19 08:59 09/24/19 09:20 Multivitamins Therapeutic (Therapeutic Multivitamin) 1 ea DAILY ORAL 09/13/19 09:00 10/13/19 08:59 09/24/19 09:20 Pantoprazole (Protonix) 40 mg DAILY ORAL 09/13/19 09:00 10/13/19 08:59 09/24/19 09:20 Polyethylene Glycol (Miralax) 17 gm DAILY ORAL 09/13/19 09:00 10/13/19 08:59 4/30/20 09:20 Casper Amanda MD Sep 24, 2019 13:05
[2019-09-24 16:00] VITALS: BP 133/65
--- NOTE | 2019-09-24 19:21 | NUR ---
HAND-OFF: Report given to KAMILA Mcdowell.
--- NOTE | 2019-09-24 19:25 | NUR ---
NURSE NOTES: received patient on bed, awake. no pain or discomfort. on cannula at 2lpm. no sob. no iv access. reiterated to call or ask for help and use the call light. bed locked and in lowest position. call light and light button within easy reach. will continue plan of care.
[2019-09-24 20:00] VITALS: BP 125/62
--- NOTE | 2019-09-24 23:00 | Progress Note ---
DATE: 09/24/2019 HISTORY OF PRESENT ILLNESS: This is an elderly male, currently in isolation, waiting for a repeat COVID test . The patient is physically doing fine. PHYSICAL EXAMINATION: VITAL SIGNS: Blood pressure 133/65, pulse 78. No fever. CHEST: Bilaterally clear. CARDIOVASCULAR: Regular rhythm. ABDOMEN: Soft. EXTREMITIES: CCE. NEUROLOGICAL: The patient has known generalized weakness. Wheelchair bound. ASSESSMENT AND PLAN: 1. COVID positive. 2. Pneumonia. 3. Sepsis, resolved. 4. We will continue Depakote. Continue Ativan as needed. Continue Norvasc, metoprolol. PT and OT. ID and Pulmonary is on case. Vincent Foote M.D. DR: Dennis JOB#: [id number] CC:
[2019-09-25] VITALS: BP 124/60
--- NOTE | 2019-09-25 00:45 | Progress Note ---
DATE: 09/24/2019 SUBJECTIVE: The patient is in bed, doing well, much calmer, not able to answer the questions. No behavior issues noted. Calm and manageable. MENTAL STATUS EXAMINATION: Alert and disoriented. Mood is neutral. Affect is flat. Thought process is concrete. Thought content, no suicidal or homicidal ideation. ASSESSMENT: Stable. PLAN: Continue current medications. Bhavin Bailon M.D. DR: Kimberly JOB#: [id number] CC:
[2019-09-25 04:00] VITALS: BP 127/69
--- NOTE | 2019-09-25 07:28 | NUR ---
HAND-OFF: Report given to darline hillman.
--- NOTE | 2019-09-25 07:42 | NUR ---
NURSE NOTES: Resident received awake in bed, no SOB noted, alert and oriented x 3, verbal and able to make needs known, on NC @ 2lpm, denies any discomfort at this time, side rails up x 2 with breaks engaged, bed alarms on, awaiting 2nd covid 19 test result, will continue to monitor, call light within reach at all times, continue with same plan of care. Addendum: 09/25/19 at 1008 by Zaria Taylor RN Patient with no IV line, aware
[2019-09-25 08:00] VITALS: BP 134/71
[2019-09-25] MEDS: Docusate 100mg cap ORAL SCH ×2 (08:49→17:56)
[2019-09-25] MEDS: Multivitamin w/Minerals tab ORAL SCH (08:49)
[2019-09-25] MEDS: Metoprolol Tartrate 100mg tab ORAL SCH (08:49)
[2019-09-25] MEDS: Miralax 17gm pkt ORAL SCH (08:50)
[2019-09-25] MEDS: Furosemide 40mg tab ORAL SCH (08:50)
[2019-09-25] MEDS: Ascorbic Acid 500mg tab ORAL SCH (08:50)
[2019-09-25] MEDS: Brimonidine 0.2% Opth Sol BOTH EYES SCH ×2 (08:52→17:56)
--- NOTE | 2019-09-25 10:31 | NUR ---
DISCHARGE PLANNING PATIENT HAS BEEN REFERRED BACK TO [facility] IS[facility] TURNER P: [phone] F: [phone]
--- NOTE | 2019-09-25 10:54 | Infectious Diseases Prog Note ---
Assessment/Plan Assessment/Plan antibiotics : none A 1. COVID 19 pneumonia s/p hydroxychloroquine rx 2. bronchitis 3. CVA P 1. continue off antibiotics 2. will follow up cultures 3. continue isolation 4. COVID 19 test pending Subjective ROS Limited/Unobtainable: Yes Allergies: Coded Allergies: No Known Allergies (Unverified , 09/03/14) Objective Vital Signs Last 24 Hour Vital Signs Date Time Temp Pulse Resp B/P (MAP) Pulse Ox O2 Delivery O2 Flow Rate FiO2 09/25/19 09:00 Nasal Cannula 2.0 09/25/19 08:49 91 134/71 09/25/19 08:49 91 134/71 09/25/19 08:00 98.2 91 19 134/71 (92) 92 09/25/19 04:00 97.6 127 18 127/69 (88) 97 09/25/19 00:00 98.6 80 19 124/60 (81) 95 09/24/19 21:00 Nasal Cannula 2.0 09/24/19 20:00 97.9 80 19 125/62 (83) 96 09/24/19 16:00 98.4 78 20 133/65 (87) 94 09/24/19 12:00 98.4 78 20 116/68 (84) 95 Height (Feet): 5 Height (Inches): 11.00 Weight (Pounds): 174 Current Medications Medications (Trade) Dose Ordered Sig/Yaz Route PRN Reason Start Time Stop Time Status Last Admin Dose Admin Acetaminophen (Tylenol) 650 mg Q4H PRN ORAL Mild Pain (Pain Scale 1-3) 09/12/19 22:15 10/12/19 22:14 09/18/19 03:57 Albuterol/ Ipratropium (Combivent Respimat) 1 puff Q4H PRN INH SOB/WHEEZING 09/12/19 22:45 10/12/19 22:44 Amlodipine Besylate (Norvasc) 10 mg DAILY ORAL 09/13/19 09:00 10/13/19 08:59 09/25/19 08:49 Ascorbic Acid (Vitamin C) 500 mg DAILY ORAL 09/13/19 09:00 10/13/19 08:59 09/25/19 08:50 Brimonidine Tartrate (Alphagan) 1 drop TWICE A DAY BOTH EYES 09/13/19 09:00 12/12/19 08:59 09/25/19 08:52 Divalproex Sodium (Depakote) 250 mg BEDTIME ORAL 09/21/19 21:00 10/21/19 20:59 09/24/19 20:48 Docusate Sodium (Colace) 100 mg BID ORAL 09/13/19 09:00 10/13/19 08:59 09/25/19 08:49 Furosemide (Lasix) 40 mg DAILY ORAL 09/13/19 09:00 10/13/19 08:59 09/25/19 08:50 Gabapentin (Neurontin) 300 mg THREE TIMES A DAY ORAL 09/13/19 09:00 10/13/19 08:59 09/25/19 08:50 Guaifenesin (Robitussin) 200 mg Q4H PRN ORAL For Cough 09/12/19 22:30 12/11/19 22:29 Ibuprofen (Motrin) 600 mg Q6H PRN ORAL For Pain 09/12/19 22:30 10/12/19 22:29 Lorazepam (Ativan 2mg/ml 1ml) 1 mg Q6H PRN IV For Anxiety 09/20/19 19:15 09/27/19 19:14 Lorazepam (Ativan) 1 mg Q6H PRN ORAL For Anxiety 09/20/19 19:15 09/27/19 19:14 Metoprolol Tartrate (Lopressor) 100 mg DAILY ORAL 09/13/19 09:00 12/12/19 08:59 09/25/19 08:49 Multivitamins Therapeutic (Therapeutic Multivitamin) 1 ea DAILY ORAL 09/13/19 09:00 10/13/19 08:59 09/25/19 08:49 Pantoprazole (Protonix) 40 mg DAILY ORAL 09/13/19 09:00 10/13/19 08:59 09/25/19 08:50 Polyethylene Glycol (Miralax) 17 gm DAILY ORAL 09/13/19 09:00 10/13/19 08:59 09/25/19 08:50 Maxi King MD September 25, 2019 10:54
--- NOTE | 2019-09-25 11:34 | Pulmonology Progress Note ---
Assessment/Plan Assessment/Plan IMPRESSION: 1. History of previous UTI. 2. Bronchitis. 3. Positive COVID-19. 4. CVA. DISCUSSION: The patient is a [facility] resident. Agree with antibiotics. Has positive PCR for COVID-19. Saturating well on 2L/min O2 Yandel Yap M.D. Subjective ROS Limited/Unobtainable: Yes Interval Events: None new Constitutional: Reports: no symptoms HEENT: Repors: no symptoms Respiratory: Reports: no symptoms Cardiovascular: Reports: no symptoms Gastrointestinal/Abdominal: Denies: nausea, vomiting, diarrhea Genitourinary: Reports: no symptoms Musculoskeletal: Denies: pain Allergies: Coded Allergies: No Known Allergies (Unverified , 09/03/14) Objective Last 24 Hour Vital Signs Date Time Temp Pulse Resp B/P (MAP) Pulse Ox O2 Delivery O2 Flow Rate FiO2 09/25/19 09:00 Nasal Cannula 2.0 09/25/19 08:49 91 134/71 09/25/19 08:49 91 134/71 09/25/19 08:00 98.2 91 19 134/71 (92) 92 09/25/19 04:00 97.6 127 18 127/69 (88) 97 09/25/19 00:00 98.6 80 19 124/60 (81) 95 09/24/19 21:00 Nasal Cannula 2.0 09/24/19 20:00 97.9 80 19 125/62 (83) 96 09/24/19 16:00 98.4 78 20 133/65 (87) 94 09/24/19 12:00 98.4 78 20 116/68 (84) 95 Intake and Output 09/24/19 09/25/19 19:00 07:00 Intake Total 960 ml 250 ml Balance 960 ml 250 ml Intake Oral 960 ml 250 ml # Voids 6 2 # Bowel Movements 1 General Appearance: no acute distress HEENT: mucous membranes moist Respiratory/Chest: chest wall non-tender Cardiovascular: normal peripheral pulses Abdomen: soft, non tender Extremities: no edema Neurologic/Psychiatric: alert, responsive Current Medications Medications (Trade) Dose Ordered Sig/Yaz Route PRN Reason Start Time Stop Time Status Last Admin Dose Admin Acetaminophen (Tylenol) 650 mg Q4H PRN ORAL Mild Pain (Pain Scale 1-3) 09/12/19 22:15 10/12/19 22:14 09/18/19 03:57 Albuterol/ Ipratropium (Combivent Respimat) 1 puff Q4H PRN INH SOB/WHEEZING 09/12/19 22:45 10/12/19 22:44 Amlodipine Besylate (Norvasc) 10 mg DAILY ORAL 09/13/19 09:00 10/13/19 08:59 09/25/19 08:49 Ascorbic Acid (Vitamin C) 500 mg DAILY ORAL 09/13/19 09:00 10/13/19 08:59 09/25/19 08:50 Brimonidine Tartrate (Alphagan) 1 drop TWICE A DAY BOTH EYES 09/13/19 09:00 12/12/19 08:59 09/25/19 08:52 Divalproex Sodium (Depakote) 250 mg BEDTIME ORAL 09/21/19 21:00 10/21/19 20:59 09/24/19 20:48 Docusate Sodium (Colace) 100 mg BID ORAL 09/13/19 09:00 10/13/19 08:59 09/25/19 08:49 Furosemide (Lasix) 40 mg DAILY ORAL 09/13/19 09:00 10/13/19 08:59 09/25/19 08:50 Gabapentin (Neurontin) 300 mg THREE TIMES A DAY ORAL 09/13/19 09:00 10/13/19 08:59 09/25/19 08:50 Guaifenesin (Robitussin) 200 mg Q4H PRN ORAL For Cough 09/12/19 22:30 12/11/19 22:29 Ibuprofen (Motrin) 600 mg Q6H PRN ORAL For Pain 09/12/19 22:30 10/12/19 22:29 Lorazepam (Ativan 2mg/ml 1ml) 1 mg Q6H PRN IV For Anxiety 09/20/19 19:15 09/27/19 19:14 Lorazepam (Ativan) 1 mg Q6H PRN ORAL For Anxiety 09/20/19 19:15 09/27/19 19:14 Metoprolol Tartrate (Lopressor) 100 mg DAILY ORAL 09/13/19 09:00 12/12/19 08:59 09/25/19 08:49 Multivitamins Therapeutic (Therapeutic Multivitamin) 1 ea DAILY ORAL 09/13/19 09:00 10/13/19 08:59 09/25/19 08:49 Pantoprazole (Protonix) 40 mg DAILY ORAL 09/13/19 09:00 10/13/19 08:59 09/25/19 08:50 Polyethylene Glycol (Miralax) 17 gm DAILY ORAL 09/13/19 09:00 10/13/19 08:59 09/25/19 08:50 Yandel Yap MD September 25, 2019 11:34
[2019-09-25 12:00] VITALS: BP 130/67
--- NOTE | 2019-09-25 14:38 | NUR ---
CASE MANAGEMENT:REVIEW SI;COVID-19 PNA. BRONCHITIS. 98.6 127 19 134/74 93% 2L NC IS;DUO NEB HHN Q4 HRS PRN PROTONIX PO QD LASIX PO QD VIT C PO QD ROBITUSSIN PO Q4 HRS NORVASC PO QD DEPAKOTE PO QHS MED SURG STATUS DCP; FROM [facility]; REPEAT COVID-19 RESULT PENDING
[2019-09-25 16:00] VITALS: BP 126/63
--- NOTE | 2019-09-25 19:20 | NUR ---
NURSE NOTES: Receive pt on the bed alert and oriented x4 , no sob, no complain of pain, vitals are stable and no fever. pt is on NC 2L. pt is covid 19 potsitve and he is on isolation for covid 19. Bed in the lower position, alarm on, and locked. Call light within reach. We will keep monitoring him
--- NOTE | 2019-09-25 19:37 | NUR ---
HAND-OFF: Report given to Yomi TREVIÑO and Sujey TREVIÑO.
[2019-09-25 20:00] VITALS: BP 121/63
[2019-09-26] VITALS: BP 122/61
--- NOTE | 2019-09-26 02:59 | Progress Note ---
DATE: 09/26/2019 HISTORY OF PRESENT ILLNESS: This is an 83-year-old male currently in bed, comfortable. He refused for repeat of his COVID test day before yesterday, but the patient is physically doing fine. PHYSICAL EXAMINATION: VITAL SIGNS: Blood pressure is 130/70, pulse 74, respirations 18, no fever. HEENT: NAD. CHEST: Bilaterally clear. CARDIOVASCULAR: Regular rhythm. ABDOMEN: Soft. EXTREMITIES: CCE. NEUROLOGICAL: The patient is in no focal deficit. ASSESSMENT AND PLAN: 1. COVID positive. 2. Pneumonia. 3. COPD. 4. CVA. 5. Hypertension. PLAN: We will currently continue current treatment. Continue isolation. ID is on consult. Discussed with the charge nurse. Vincent Foote M.D. DR: Dennis JOB#: [id number] CC:
[2019-09-26 04:00] VITALS: BP 123/62
--- NOTE | 2019-09-26 07:15 | NUR ---
HAND-OFF: Report given to KAMILA Motta. Endorsed the pt is fall risk
--- NOTE | 2019-09-26 07:43 | NUR ---
NURSE NOTES: Report received from Sujey/Yomi RN. Patient seen on rounds, asleep, comfortable, not in distress. On 2lpm via NC. Per RN, no IV access, is aware. Condom catheter secured and draining well. Patient is fall risk. Bed low and locked, siderails up x2, zone alarms on 1, call light within reach, will continue to monitor.
[2019-09-26 08:00] VITALS: BP 132/70
[2019-09-26] MEDS: Ascorbic Acid 500mg tab ORAL SCH (08:54)
[2019-09-26] MEDS: Docusate 100mg cap ORAL SCH ×2 (08:54→17:14)
[2019-09-26] MEDS: Multivitamin w/Minerals tab ORAL SCH (08:54)
[2019-09-26] MEDS: Metoprolol Tartrate 100mg tab ORAL SCH (08:54)
[2019-09-26] MEDS: Furosemide 40mg tab ORAL SCH (08:54)
[2019-09-26] MEDS: Miralax 17gm pkt ORAL SCH (08:55)
--- NOTE | 2019-09-26 08:57 | Pulmonology Progress Note ---
Assessment/Plan Assessment/Plan IMPRESSION: 1. History of previous UTI. 2. Bronchitis. 3. Positive COVID-19. 4. CVA. DISCUSSION: The patient is a long-term resident. Agree with antibiotics. Has positive PCR for COVID-19. Saturating well on 2L/min O2 Yandel Yap M.D. Subjective ROS Limited/Unobtainable: Yes Interval Events: None new Constitutional: Reports: no symptoms HEENT: Repors: no symptoms Respiratory: Reports: no symptoms Cardiovascular: Reports: no symptoms Gastrointestinal/Abdominal: Denies: nausea, vomiting, diarrhea Genitourinary: Reports: no symptoms Musculoskeletal: Denies: pain Allergies: Coded Allergies: No Known Allergies (Unverified , 09/03/14) Objective Last 24 Hour Vital Signs Date Time Temp Pulse Resp B/P (MAP) Pulse Ox O2 Delivery O2 Flow Rate FiO2 09/26/19 08:00 98.0 89 17 132/70 (90) 95 09/26/19 04:00 98.5 83 19 123/62 (82) 98 09/26/19 00:00 97.4 72 19 122/61 (81) 98 09/25/19 21:00 Nasal Cannula 2.0 09/25/19 20:00 97.9 80 19 121/63 (82) 97 09/25/19 16:00 98.0 77 19 126/63 (84) 93 09/25/19 12:00 98.5 87 19 130/67 (88) 95 09/25/19 09:00 Nasal Cannula 2.0 Intake and Output 09/25/19 09/26/19 19:00 07:00 Intake Total 800 ml Balance 800 ml Other 800 ml # Voids 2 # Bowel Movements 1 General Appearance: no acute distress HEENT: mucous membranes moist Respiratory/Chest: chest wall non-tender Cardiovascular: normal peripheral pulses Abdomen: soft, non tender Extremities: no edema Neurologic/Psychiatric: alert, responsive Current Medications Medications (Trade) Dose Ordered Sig/Yaz Route PRN Reason Start Time Stop Time Status Last Admin Dose Admin Acetaminophen (Tylenol) 650 mg Q4H PRN ORAL Mild Pain (Pain Scale 1-3) 09/12/19 22:15 10/12/19 22:14 09/18/19 03:57 Albuterol/ Ipratropium (Combivent Respimat) 1 puff Q4H PRN INH SOB/WHEEZING 09/12/19 22:45 10/12/19 22:44 Amlodipine Besylate (Norvasc) 10 mg DAILY ORAL 09/13/19 09:00 10/13/19 08:59 09/25/19 08:49 Ascorbic Acid (Vitamin C) 500 mg DAILY ORAL 09/13/19 09:00 10/13/19 08:59 09/25/19 08:50 Brimonidine Tartrate (Alphagan) 1 drop TWICE A DAY BOTH EYES 09/13/19 09:00 12/12/19 08:59 09/25/19 17:56 Divalproex Sodium (Depakote) 250 mg BEDTIME ORAL 09/21/19 21:00 10/21/19 20:59 09/25/19 20:46 Docusate Sodium (Colace) 100 mg BID ORAL 09/13/19 09:00 10/13/19 08:59 09/25/19 17:56 Furosemide (Lasix) 40 mg DAILY ORAL 09/13/19 09:00 10/13/19 08:59 09/25/19 08:50 Gabapentin (Neurontin) 300 mg THREE TIMES A DAY ORAL 09/13/19 09:00 10/13/19 08:59 09/25/19 17:56 Guaifenesin (Robitussin) 200 mg Q4H PRN ORAL For Cough 09/12/19 22:30 12/11/19 22:29 Ibuprofen (Motrin) 600 mg Q6H PRN ORAL For Pain 09/12/19 22:30 10/12/19 22:29 Lorazepam (Ativan 2mg/ml 1ml) 1 mg Q6H PRN IV For Anxiety 09/20/19 19:15 09/27/19 19:14 Lorazepam (Ativan) 1 mg Q6H PRN ORAL For Anxiety 09/20/19 19:15 09/27/19 19:14 Metoprolol Tartrate (Lopressor) 100 mg DAILY ORAL 09/13/19 09:00 12/12/19 08:59 09/25/19 08:49 Multivitamins Therapeutic (Therapeutic Multivitamin) 1 ea DAILY ORAL 09/13/19 09:00 10/13/19 08:59 09/25/19 08:49 Pantoprazole (Protonix) 40 mg DAILY ORAL 09/13/19 09:00 10/13/19 08:59 09/25/19 08:50 Polyethylene Glycol (Miralax) 17 gm DAILY ORAL 09/13/19 09:00 10/13/19 08:59 09/25/19 08:50 Yandel Ypa MD September 26, 2019 08:57
[2019-09-26] MEDS: Brimonidine 0.2% Opth Sol BOTH EYES SCH ×2 (09:00→17:14)
--- NOTE | 2019-09-26 09:08 | NUR ---
NURSE NOTES: Patient refused eye drop medications for 9am. Educated on risks and benefits, patient still refused.
--- NOTE | 2019-09-26 11:50 | NUR ---
NURSE NOTES: Spoke to regarding Ativan renew and ok to renew medication. Order noted and carried out.
[2019-09-26 12:00] VITALS: BP 129/82
[2019-09-26] MEDS ORDERED: LORazepam Inj 2mg/ml 1ml IV PRN (13:15)
[2019-09-26] MEDS ORDERED: LORazepam 1mg tab ORAL PRN (13:15)
[2019-09-26 16:00] VITALS: BP 130/72
--- NOTE | 2019-09-26 18:15 | NUR ---
NURSE NOTES: Optifoam applied to bilateral heels for pressure injury prevention.
--- NOTE | 2019-09-26 19:28 | NUR ---
HAND-OFF: Report given to Hellen TREVIÑO.
[2019-09-26 20:00] VITALS: BP 139/62
--- NOTE | 2019-09-26 21:59 | Progress Note ---
DATE: 09/26/2019 SUBJECTIVE: This is an elderly 83-year-old male, currently in the bed, comfortable, doing ____ no distress. PHYSICAL EXAMINATION: VITAL SIGNS: Blood pressure is 132/70, pulse 89, no fever. CHEST: Bilateral few crackles. CARDIOVASCULAR: Regular rhythm. ABDOMEN: Soft. EXTREMITIES: CCE. NEUROLOGICAL: No focal deficit. LABORATORY DATA: The patient has no labs. ASSESSMENT: 1. COVID pneumonia. 2. COPD. 3. Hypertension. 4. Chronic back pain. PLAN: Continue current treatment. Continue Depakote and Ativan p.r.n. Continue Norvasc. Continue bronchodilator treatment. Waiting for repeat COVID test. Vincent Foote M.D. DR: Dennis JOB#: [id number] CC:
[2019-09-27] VITALS: BP 129/82
[2019-09-27 04:00] VITALS: BP 140/60
--- NOTE | 2019-09-27 04:30 | NUR ---
NURSE NOTES: Changed the pt and checked the skin. Wound picture is taken and dressing changed. vitals are stable. pt is still in covid 19 isolation
--- NOTE | 2019-09-27 06:57 | NUR ---
HAND-OFF: Report given to KAMILA Yost.
--- NOTE | 2019-09-27 07:16 | NUR ---
NURSE NOTES: Report received from Sujey/Yomi RN. Patient seen on rounds, asleep, comfortable, not in distress. On 2lpm via NC. Afebrile. Per RN, no IV access, is aware. Condom catheter secured and draining well. Wound dressing on sacrum intact, optifoam on bilateral heels. Patient is fall risk. Bed low and locked, siderails up x2, zone alarms on 1, call light within reach, will continue to monitor.
[2019-09-27 08:00] VITALS: BP 131/72
[2019-09-27] MEDS: Metoprolol Tartrate 100mg tab ORAL SCH (08:27)
[2019-09-27] MEDS: Furosemide 40mg tab ORAL SCH (08:27)
[2019-09-27] MEDS: Miralax 17gm pkt ORAL SCH (08:27)
[2019-09-27] MEDS: Docusate 100mg cap ORAL SCH ×2 (08:27→17:25)
[2019-09-27] MEDS: Ascorbic Acid 500mg tab ORAL SCH (08:28)
[2019-09-27] MEDS: Multivitamin w/Minerals tab ORAL SCH (08:28)
[2019-09-27] MEDS: Brimonidine 0.2% Opth Sol BOTH EYES SCH ×2 (09:00→17:25)
--- NOTE | 2019-09-27 09:49 | NUR ---
NURSE NOTES: Patient refused eye drop medications for 9am. Educated on risks and benefits x3, patient still refused.
--- NOTE | 2019-09-27 10:35 | NUR ---
NURSE NOTES: Confirmed with labs no Covid specimen received for 09/18 amd 09/20. Specimen collected today 09/26 and sent down to lab.
[2019-09-27 12:00] VITALS: BP 122/62
--- NOTE | 2019-09-27 13:10 | Infectious Diseases Prog Note ---
Assessment/Plan Assessment/Plan A 1. COVID 19 pneumonia 2. bronchitis 3. CVA P 1. Finished hydroxychloroquine course 2. will follow up repeated COVID19 test 3. continue isolation Subjective ROS Limited/Unobtainable: Yes Constitutional: Denies: fever Respiratory: Reports: no symptoms Allergies: Coded Allergies: No Known Allergies (Unverified , 09/03/14) Objective Vital Signs Last 24 Hour Vital Signs Date Time Temp Pulse Resp B/P (MAP) Pulse Ox O2 Delivery O2 Flow Rate FiO2 09/27/19 12:00 98.1 70 18 122/62 (82) 93 09/27/19 09:00 Nasal Cannula 2.0 09/27/19 08:28 87 131/72 09/27/19 08:27 87 131/72 09/27/19 08:00 97.9 87 18 131/72 (91) 96 09/27/19 04:00 99.9 100 22 140/60 (86) 96 09/27/19 00:00 98.3 86 18 129/82 (98) 96 09/26/19 21:00 Nasal Cannula 2.0 09/26/19 20:00 97.9 80 19 139/62 (87) 95 09/26/19 16:00 97.5 81 18 130/72 (91) 97 Height (Feet): 5 Height (Inches): 11.00 Weight (Pounds): 174 General Appearance: no acute distress HEENT: mucous membranes moist Respiratory/Chest: lungs clear Cardiovascular: normal rate Abdomen: soft, non tender Neurologic/Psychiatric: alert, responsive Current Medications Medications (Trade) Dose Ordered Sig/Yaz Route PRN Reason Start Time Stop Time Status Last Admin Dose Admin Acetaminophen (Tylenol) 650 mg Q4H PRN ORAL Mild Pain (Pain Scale 1-3) 09/12/19 22:15 10/12/19 22:14 09/18/19 03:57 Albuterol/ Ipratropium (Combivent Respimat) 1 puff Q4H PRN INH SOB/WHEEZING 09/12/19 22:45 10/12/19 22:44 Amlodipine Besylate (Norvasc) 10 mg DAILY ORAL 09/13/19 09:00 10/13/19 08:59 09/27/19 08:28 Ascorbic Acid (Vitamin C) 500 mg DAILY ORAL 09/13/19 09:00 10/13/19 08:59 09/27/19 08:28 Brimonidine Tartrate (Alphagan) 1 drop TWICE A DAY BOTH EYES 09/13/19 09:00 12/12/19 08:59 09/25/19 17:56 Divalproex Sodium (Depakote) 250 mg BEDTIME ORAL 09/21/19 21:00 10/21/19 20:59 09/26/19 20:19 Docusate Sodium (Colace) 100 mg BID ORAL 09/13/19 09:00 10/13/19 08:59 09/27/19 08:27 Furosemide (Lasix) 40 mg DAILY ORAL 09/13/19 09:00 10/13/19 08:59 09/27/19 08:27 Gabapentin (Neurontin) 300 mg THREE TIMES A DAY ORAL 09/13/19 09:00 10/13/19 08:59 09/27/19 13:06 Guaifenesin (Robitussin) 200 mg Q4H PRN ORAL For Cough 09/12/19 22:30 12/11/19 22:29 Ibuprofen (Motrin) 600 mg Q6H PRN ORAL For Pain 09/12/19 22:30 10/12/19 22:29 Lorazepam (Ativan 2mg/ml 1ml) 1 mg Q6H PRN IV For Anxiety 09/26/19 13:15 10/03/19 13:14 Lorazepam (Ativan) 1 mg Q6H PRN ORAL For Anxiety 09/26/19 13:15 10/03/19 13:14 Metoprolol Tartrate (Lopressor) 100 mg DAILY ORAL 09/13/19 09:00 12/12/19 08:59 09/27/19 08:27 Multivitamins Therapeutic (Therapeutic Multivitamin) 1 ea DAILY ORAL 09/13/19 09:00 10/13/19 08:59 09/27/19 08:28 Pantoprazole (Protonix) 40 mg DAILY ORAL 09/13/19 09:00 10/13/19 08:59 09/27/19 08:28 Polyethylene Glycol (Miralax) 17 gm DAILY ORAL 09/13/19 09:00 10/13/19 08:59 09/27/19 08:27 Casper Amanda MD September 27, 2019 13:10
--- NOTE | 2019-09-27 15:46 | NUR ---
NURSE NOTES: Dr. Garima Amanda saw patient on rounds, notified him that prior swabs ordered on 09/18 and 09/20 were not collected. Patient re-swabbed today, MD is aware and orders are in.
[2019-09-27 16:00] VITALS: BP 122/59
--- NOTE | 2019-09-27 17:16 | Pulmonology Progress Note ---
Assessment/Plan Assessment/Plan IMPRESSION: 1. History of previous UTI. 2. Bronchitis. 3. Positive COVID-19. 4. CVA. DISCUSSION: The patient is a intermediate resident. Agree with antibiotics. Has positive PCR for COVID-19. Saturating well on 2L/min O2 Yandel Yap M.D. Subjective ROS Limited/Unobtainable: Yes Interval Events: None new Constitutional: Denies: fever HEENT: Repors: no symptoms Respiratory: Reports: no symptoms Cardiovascular: Reports: no symptoms Gastrointestinal/Abdominal: Denies: nausea, vomiting, diarrhea Genitourinary: Reports: no symptoms Musculoskeletal: Denies: pain Allergies: Coded Allergies: No Known Allergies (Unverified , 09/03/14) Objective Last 24 Hour Vital Signs Date Time Temp Pulse Resp B/P (MAP) Pulse Ox O2 Delivery O2 Flow Rate FiO2 09/27/19 16:00 98.4 78 18 122/59 (80) 95 09/27/19 12:00 98.1 70 18 122/62 (82) 93 09/27/19 09:00 Nasal Cannula 2.0 09/27/19 08:28 87 131/72 09/27/19 08:27 87 131/72 09/27/19 08:00 97.9 87 18 131/72 (91) 96 09/27/19 04:00 99.9 100 22 140/60 (86) 96 09/27/19 00:00 98.3 86 18 129/82 (98) 96 09/26/19 21:00 Nasal Cannula 2.0 09/26/19 20:00 97.9 80 19 139/62 (87) 95 Intake and Output 09/26/19 09/27/19 19:00 07:00 Intake Total 300 ml Output Total 100 ml 0 ml Balance 200 ml 0 ml Intake Oral 300 ml Output Urine Total 100 ml 0 ml # Voids 2 # Bowel Movements 1 General Appearance: no acute distress HEENT: mucous membranes moist Respiratory/Chest: chest wall non-tender Cardiovascular: normal peripheral pulses Abdomen: soft, non tender Extremities: no edema Neurologic/Psychiatric: alert, responsive Current Medications Medications (Trade) Dose Ordered Sig/Yaz Route PRN Reason Start Time Stop Time Status Last Admin Dose Admin Acetaminophen (Tylenol) 650 mg Q4H PRN ORAL Mild Pain (Pain Scale 1-3) 09/12/19 22:15 10/12/19 22:14 09/18/19 03:57 Albuterol/ Ipratropium (Combivent Respimat) 1 puff Q4H PRN INH SOB/WHEEZING 09/12/19 22:45 10/12/19 22:44 Amlodipine Besylate (Norvasc) 10 mg DAILY ORAL 09/13/19 09:00 10/13/19 08:59 09/27/19 08:28 Ascorbic Acid (Vitamin C) 500 mg DAILY ORAL 09/13/19 09:00 10/13/19 08:59 09/27/19 08:28 Brimonidine Tartrate (Alphagan) 1 drop TWICE A DAY BOTH EYES 09/13/19 09:00 12/12/19 08:59 09/25/19 17:56 Divalproex Sodium (Depakote) 250 mg BEDTIME ORAL 09/21/19 21:00 10/21/19 20:59 09/26/19 20:19 Docusate Sodium (Colace) 100 mg BID ORAL 09/13/19 09:00 10/13/19 08:59 09/27/19 08:27 Furosemide (Lasix) 40 mg DAILY ORAL 09/13/19 09:00 10/13/19 08:59 09/27/19 08:27 Gabapentin (Neurontin) 300 mg THREE TIMES A DAY ORAL 09/13/19 09:00 10/13/19 08:59 09/27/19 13:06 Guaifenesin (Robitussin) 200 mg Q4H PRN ORAL For Cough 09/12/19 22:30 12/11/19 22:29 Ibuprofen (Motrin) 600 mg Q6H PRN ORAL For Pain 09/12/19 22:30 10/12/19 22:29 Lorazepam (Ativan 2mg/ml 1ml) 1 mg Q6H PRN IV For Anxiety 09/26/19 13:15 10/03/19 13:14 Lorazepam (Ativan) 1 mg Q6H PRN ORAL For Anxiety 09/26/19 13:15 5/9/20 13:14 Metoprolol Tartrate (Lopressor) 100 mg DAILY ORAL 09/13/19 09:00 12/12/19 08:59 09/27/19 08:27 Multivitamins Therapeutic (Therapeutic Multivitamin) 1 ea DAILY ORAL 09/13/19 09:00 10/13/19 08:59 09/27/19 08:28 Pantoprazole (Protonix) 40 mg DAILY ORAL 09/13/19 09:00 10/13/19 08:59 09/27/19 08:28 Polyethylene Glycol (Miralax) 17 gm DAILY ORAL 09/13/19 09:00 10/13/19 08:59 09/27/19 08:27 Yandel Yap MD September 27, 2019 17:16
--- NOTE | 2019-09-27 19:40 | NUR ---
HAND-OFF: Report given to Yusra. Endorsed that Covid swab was collected today.
[2019-09-27 20:00] VITALS: BP 131/56
--- NOTE | 2019-09-27 22:18 | NUR ---
NURSE NOTES: Received patient awake in bed, able to make needs known, patient wants head of bed flat. No IV access, MD aware. Kaelyn catheter on, draining yellow urine. Patient on nasal cannula 2L, tolerating well. Bed low and locked. Needs attended to at this time.
[2019-09-28] VITALS: BP 130/59
--- NOTE | 2019-09-28 01:14 | Progress Note ---
DATE: 09/27/2019 SUBJECTIVE: This is an 83-year-old male, currently in the bed, comfortable. PHYSICAL EXAMINATION: VITAL SIGNS: Stable. CHEST: Bilaterally clear. CARDIOVASCULAR: Regular rhythm. ABDOMEN: Soft. EXTREMITIES: CCE. ASSESSMENT: 1. Fever, ruled out sepsis. 2. COVID positive. 3. CVA. 4. Hypertension. 5. Dementia. We will currently continue isolation. 6. Continue supportive treatment. Continue medical treatment. Waiting for second COVID test and if it negative DC plan to SNF. Vincent Foote M.D. DR: RAMYA JOB#: [id number] CC:
[2019-09-28 04:00] VITALS: BP 139/60
--- NOTE | 2019-09-28 07:02 | NUR ---
HAND-OFF: Report given to KAMILA Yost .
--- NOTE | 2019-09-28 07:28 | NUR ---
NURSE NOTES: Report received from Yusra TREVIÑO. Patient seen on rounds, asleep, comfortable, not in distress. On 2lpm via NC. Afebrile. Per RN, no IV access, is aware. Condom catheter secured and draining well. Wound dressing on sacrum intact, optifoam on bilateral heels. Patient is fall risk. Bed low and locked, siderails up x2, zone alarms on 1, call light within reach, will continue to monitor.
[2019-09-28 08:00] VITALS: BP 147/65
[2019-09-28] MEDS: Multivitamin w/Minerals tab ORAL SCH (08:13)
[2019-09-28] MEDS: Metoprolol Tartrate 100mg tab ORAL SCH (08:14)
[2019-09-28] MEDS: Furosemide 40mg tab ORAL SCH (08:14)
[2019-09-28] MEDS: Ascorbic Acid 500mg tab ORAL SCH (08:14)
[2019-09-28] MEDS: Docusate 100mg cap ORAL SCH ×2 (08:15→18:00)
[2019-09-28] MEDS: Miralax 17gm pkt ORAL SCH (08:15)
[2019-09-28] MEDS: Brimonidine 0.2% Opth Sol BOTH EYES SCH ×2 (08:15→18:00)
--- NOTE | 2019-09-28 11:07 | Infectious Diseases Prog Note ---
Assessment/Plan Assessment/Plan antibiotics : none A 1. COVID 19 pneumonia s/p hydroxychloroquine rx 2. bronchitis 3. CVA P 1. continue off antibiotics 2. will follow up cultures 3. continue isolation 4. COVID 19 test pending Subjective ROS Limited/Unobtainable: Yes Allergies: Coded Allergies: No Known Allergies (Unverified , 09/03/14) Objective Vital Signs Last 24 Hour Vital Signs Date Time Temp Pulse Resp B/P (MAP) Pulse Ox O2 Delivery O2 Flow Rate FiO2 09/28/19 09:00 Nasal Cannula 2.0 09/28/19 08:14 82 139/60 09/28/19 08:14 82 139/60 09/28/19 08:00 97.7 86 19 147/65 (92) 95 09/28/19 04:00 97.6 82 18 139/60 (86) 93 09/28/19 00:00 98.4 90 18 130/59 (82) 95 09/27/19 22:32 Nasal Cannula 2.0 09/27/19 20:00 97.9 82 18 131/56 (81) 95 09/27/19 16:00 98.4 78 18 122/59 (80) 95 09/27/19 12:00 98.1 70 18 122/62 (82) 93 Height (Feet): 5 Height (Inches): 11.00 Weight (Pounds): 174 Current Medications Medications (Trade) Dose Ordered Sig/Yaz Route PRN Reason Start Time Stop Time Status Last Admin Dose Admin Acetaminophen (Tylenol) 650 mg Q4H PRN ORAL Mild Pain (Pain Scale 1-3) 09/12/19 22:15 10/12/19 22:14 09/18/19 03:57 Albuterol/ Ipratropium (Combivent Respimat) 1 puff Q4H PRN INH SOB/WHEEZING 09/12/19 22:45 10/12/19 22:44 Amlodipine Besylate (Norvasc) 10 mg DAILY ORAL 09/13/19 09:00 10/13/19 08:59 09/28/19 08:14 Ascorbic Acid (Vitamin C) 500 mg DAILY ORAL 09/13/19 09:00 10/13/19 08:59 09/28/19 08:14 Brimonidine Tartrate (Alphagan) 1 drop TWICE A DAY BOTH EYES 09/13/19 09:00 12/12/19 08:59 09/25/19 17:56 Divalproex Sodium (Depakote) 250 mg BEDTIME ORAL 09/21/19 21:00 10/21/19 20:59 09/27/19 20:45 Docusate Sodium (Colace) 100 mg BID ORAL 09/13/19 09:00 10/13/19 08:59 09/28/19 08:15 Furosemide (Lasix) 40 mg DAILY ORAL 09/13/19 09:00 10/13/19 08:59 09/28/19 08:14 Gabapentin (Neurontin) 300 mg THREE TIMES A DAY ORAL 09/13/19 09:00 10/13/19 08:59 09/28/19 08:14 Guaifenesin (Robitussin) 200 mg Q4H PRN ORAL For Cough 09/12/19 22:30 12/11/19 22:29 Ibuprofen (Motrin) 600 mg Q6H PRN ORAL For Pain 09/12/19 22:30 10/12/19 22:29 Lorazepam (Ativan 2mg/ml 1ml) 1 mg Q6H PRN IV For Anxiety 09/26/19 13:15 10/03/19 13:14 Lorazepam (Ativan) 1 mg Q6H PRN ORAL For Anxiety 09/26/19 13:15 10/03/19 13:14 Metoprolol Tartrate (Lopressor) 100 mg DAILY ORAL 09/13/19 09:00 12/12/19 08:59 09/28/19 08:14 Multivitamins Therapeutic (Therapeutic Multivitamin) 1 ea DAILY ORAL 09/13/19 09:00 10/13/19 08:59 09/28/19 08:13 Pantoprazole (Protonix) 40 mg DAILY ORAL 09/13/19 09:00 10/13/19 08:59 09/28/19 08:14 Polyethylene Glycol (Miralax) 17 gm DAILY ORAL 09/13/19 09:00 10/13/19 08:59 09/27/19 08:27 Maxi King MD September 28, 2019 11:07
--- NOTE | 2019-09-28 11:09 | NUR ---
RD ASSESSMENT & RECOMMENDATIONS SEE CARE ACTIVITY FOR COMPLETE ASSESSMENT DAILY ESTIMATED NEEDS: Needs based on wound, 67kg 25-30 kcals/kg total kcals 1.25-1.5 g protein/kg 83-100 g total protein 25-30 mL/kg total fluid mLs NUTRITION DIAGNOSIS: Increased protein intake needs R/T wound healing as evidenced by pt admitted w/ partial thickness shearing with surrounding non-blanchable erythema at R L gluteal cheeks and cleft of buttocks, and non-blanching erythema R and L heels. CURRENT DIET:REGULAR PO DIET RECOMMENDATIONS: LOW NA/ texture as tolerated ADDITIONAL RECOMMENDATIONS: * SNF: HT=65" [id number] (08/27/19) * Monitor PO intake -> decreasing at this time * Wound healing: continue MVI + Vit C + Carlos BID * Calibrated daily weights -> pt on Lasix * Maintain liberalized Regular if poor PO continues * Ensure Enlive BID w/ variable/poor PO * Updated LYTES as able, pt on lasix
--- NOTE | 2019-09-28 11:53 | Pulmonology Progress Note ---
Assessment/Plan Assessment/Plan IMPRESSION: 1. History of previous UTI. 2. Bronchitis. 3. Positive COVID-19. 4. CVA. DISCUSSION: The patient is a correction resident. Agree with antibiotics. Has positive PCR for COVID-19. Saturating well on 2L/min O2 Yandel Yap M.D. Subjective ROS Limited/Unobtainable: Yes Interval Events: None new Constitutional: Denies: fever HEENT: Repors: no symptoms Respiratory: Reports: no symptoms Cardiovascular: Reports: no symptoms Gastrointestinal/Abdominal: Denies: nausea, vomiting, diarrhea Genitourinary: Reports: no symptoms Musculoskeletal: Denies: pain Allergies: Coded Allergies: No Known Allergies (Unverified , 09/03/14) Objective Last 24 Hour Vital Signs Date Time Temp Pulse Resp B/P (MAP) Pulse Ox O2 Delivery O2 Flow Rate FiO2 09/28/19 09:00 Nasal Cannula 2.0 09/28/19 08:14 82 139/60 09/28/19 08:14 82 139/60 09/28/19 08:00 97.7 86 19 147/65 (92) 95 09/28/19 04:00 97.6 82 18 139/60 (86) 93 09/28/19 00:00 98.4 90 18 130/59 (82) 95 09/27/19 22:32 Nasal Cannula 2.0 09/27/19 20:00 97.9 82 18 131/56 (81) 95 09/27/19 16:00 98.4 78 18 122/59 (80) 95 09/27/19 12:00 98.1 70 18 122/62 (82) 93 Intake and Output 09/27/19 09/28/19 19:00 07:00 Intake Total 240 ml Output Total 400 ml 300 ml Balance -160 ml -300 ml Intake Oral 240 ml Output Urine Total 400 ml 300 ml # Bowel Movements 2 General Appearance: no acute distress HEENT: mucous membranes moist Respiratory/Chest: chest wall non-tender Cardiovascular: normal peripheral pulses Abdomen: soft, non tender Extremities: no edema Neurologic/Psychiatric: alert, responsive Current Medications Medications (Trade) Dose Ordered Sig/Yaz Route PRN Reason Start Time Stop Time Status Last Admin Dose Admin Acetaminophen (Tylenol) 650 mg Q4H PRN ORAL Mild Pain (Pain Scale 1-3) 09/12/19 22:15 10/12/19 22:14 09/18/19 03:57 Albuterol/ Ipratropium (Combivent Respimat) 1 puff Q4H PRN INH SOB/WHEEZING 09/12/19 22:45 10/12/19 22:44 Amlodipine Besylate (Norvasc) 10 mg DAILY ORAL 09/13/19 09:00 10/13/19 08:59 09/28/19 08:14 Ascorbic Acid (Vitamin C) 500 mg DAILY ORAL 09/13/19 09:00 10/13/19 08:59 09/28/19 08:14 Brimonidine Tartrate (Alphagan) 1 drop TWICE A DAY BOTH EYES 09/13/19 09:00 12/12/19 08:59 09/25/19 17:56 Divalproex Sodium (Depakote) 250 mg BEDTIME ORAL 09/21/19 21:00 10/21/19 20:59 09/27/19 20:45 Docusate Sodium (Colace) 100 mg BID ORAL 09/13/19 09:00 10/13/19 08:59 09/28/19 08:15 Furosemide (Lasix) 40 mg DAILY ORAL 09/13/19 09:00 10/13/19 08:59 09/28/19 08:14 Gabapentin (Neurontin) 300 mg THREE TIMES A DAY ORAL 09/13/19 09:00 10/13/19 08:59 09/28/19 08:14 Guaifenesin (Robitussin) 200 mg Q4H PRN ORAL For Cough 09/12/19 22:30 12/11/19 22:29 Ibuprofen (Motrin) 600 mg Q6H PRN ORAL For Pain 09/12/19 22:30 10/12/19 22:29 Lorazepam (Ativan 2mg/ml 1ml) 1 mg Q6H PRN IV For Anxiety 09/26/19 13:15 10/03/19 13:14 Lorazepam (Ativan) 1 mg Q6H PRN ORAL For Anxiety 09/26/19 13:15 10/03/19 13:14 Metoprolol Tartrate (Lopressor) 100 mg DAILY ORAL 09/13/19 09:00 12/12/19 08:59 09/28/19 08:14 Multivitamins Therapeutic (Therapeutic Multivitamin) 1 ea DAILY ORAL 09/13/19 09:00 10/13/19 08:59 09/28/19 08:13 Pantoprazole (Protonix) 40 mg DAILY ORAL 09/13/19 09:00 10/13/19 08:59 09/28/19 08:14 Polyethylene Glycol (Miralax) 17 gm DAILY ORAL 09/13/19 09:00 10/13/19 08:59 09/27/19 08:27 Yandel Yap MD September 28, 2019 11:53
[2019-09-28 12:00] VITALS: BP 114/58
--- NOTE | 2019-09-28 14:16 | NUR ---
CASE MANAGEMENT:REVIEW SI;COVID-19 PNA BRONCHITIS. 98.4 90 19 147/65 93% 2L NC IS;PROTONIX PO QD LASIX PO QD LOPRESSOR PO QD COMBIVENT IN Q4 HRS PRN NORVASC PO QD DEPAKOTE PO HS MED SURG STATUS DCP; FROM [facility];REPEAT COVID-19 ON 09/26/19 RESULT PENDING
[2019-09-28 16:00] VITALS: BP 118/64
--- NOTE | 2019-09-28 18:00 | Progress Note ---
DATE: 09/28/2019 SUBJECTIVE: This 83-year-old male came with COVID-positive pneumonia. Patient is currently doing better in the bed. His repeat COVID test is pending. OBJECTIVE: VITAL SIGNS: Blood pressure 139/60, pulse 82. No fever. CHEST: Bilaterally clear. CARDIOVASCULAR: Regular rhythm. ABDOMEN: Soft. EXTREMITIES: CCE. NEUROLOGICAL: Patient has generalized weakness. ASSESSMENT: 1. Acute bronchitis. 2. COVID positive. 3. Hypertension. 4. CVA. PLAN: 1. Continue Depakote, lorazepam. 2. Continue gabapentin, Lasix. 3. Continue bronchodilator treatments. 4. Discharge plan. Waiting for repeat COVID test results. Vincent Foote M.D. DR: KATE JOB#: [id number] CC:
--- NOTE | 2019-09-28 19:16 | NUR ---
HAND-OFF: Report given to Yusra TREVIÑO.
[2019-09-28 20:00] VITALS: BP 123/66
[2019-09-29] VITALS: BP 130/70
[2019-09-29 04:00] VITALS: BP 120/59
--- NOTE | 2019-09-29 06:46 | NUR ---
NURSE NOTES: Left message for Dr Sandhu regarding patient's positive covid swab from 09/26
--- NOTE | 2019-09-29 07:14 | NUR ---
HAND-OFF: Report given to KAMILA Estrella.
--- NOTE | 2019-09-29 07:20 | NUR ---
NURSE NOTES: Patient is awake and alert, eating breakfast, no signs of distress noted. no reports of pain, Dressings are intact. Bed is low and locked, side rails up x2, call light is within reach.
[2019-09-29 08:00] VITALS: BP 129/64
[2019-09-29] MEDS: Brimonidine 0.2% Opth Sol BOTH EYES SCH ×2 (09:00→18:01)
[2019-09-29] MEDS: Docusate 100mg cap ORAL SCH ×2 (09:00→17:40)
[2019-09-29] MEDS: Miralax 17gm pkt ORAL SCH (09:00)
[2019-09-29] MEDS: Furosemide 40mg tab ORAL SCH (09:12)
[2019-09-29] MEDS: Ascorbic Acid 500mg tab ORAL SCH (09:13)
[2019-09-29] MEDS: Multivitamin w/Minerals tab ORAL SCH (09:13)
[2019-09-29] MEDS: Metoprolol Tartrate 100mg tab ORAL SCH (09:13)
--- NOTE | 2019-09-29 10:50 | Infectious Diseases Prog Note ---
Assessment/Plan Assessment/Plan antibiotics : none A 1. COVID 19 pneumonia s/p hydroxychloroquine rx test + 5.3.20 2. bronchitis 3. CVA P 1. continue off antibiotics 2. will follow up cultures 3. continue isolation Subjective ROS Limited/Unobtainable: Yes Allergies: Coded Allergies: No Known Allergies (Unverified , 09/03/14) Objective Vital Signs Last 24 Hour Vital Signs Date Time Temp Pulse Resp B/P (MAP) Pulse Ox O2 Delivery O2 Flow Rate FiO2 09/29/19 09:13 91 129/64 09/29/19 09:13 91 129/64 09/29/19 08:00 98.6 91 18 129/64 (85) 96 09/29/19 04:00 98.7 84 20 120/59 (79) 97 09/29/19 00:00 98.0 86 20 130/70 (90) 97 09/28/19 22:33 Nasal Cannula 2.0 09/28/19 20:00 98.0 83 20 123/66 (85) 97 09/28/19 16:00 98.2 77 20 118/64 (82) 97 09/28/19 12:00 98.0 71 19 114/58 (76) 94 Height (Feet): 5 Height (Inches): 11.00 Weight (Pounds): 174 Microbiology Date/Time Source Procedure Growth Status 09/27/19 10:35 Nasopharynx Coronavirus COVID-19 PCR ([facility]) - Final Complete Current Medications Medications (Trade) Dose Ordered Sig/Yaz Route PRN Reason Start Time Stop Time Status Last Admin Dose Admin Acetaminophen (Tylenol) 650 mg Q4H PRN ORAL Mild Pain (Pain Scale 1-3) 09/12/19 22:15 10/12/19 22:14 09/18/19 03:57 Albuterol/ Ipratropium (Combivent Respimat) 1 puff Q4H PRN INH SOB/WHEEZING 09/12/19 22:45 10/12/19 22:44 Amlodipine Besylate (Norvasc) 10 mg DAILY ORAL 09/13/19 09:00 10/13/19 08:59 09/29/19 09:13 Ascorbic Acid (Vitamin C) 500 mg DAILY ORAL 09/13/19 09:00 10/13/19 08:59 09/29/19 09:13 Brimonidine Tartrate (Alphagan) 1 drop TWICE A DAY BOTH EYES 09/13/19 09:00 12/12/19 08:59 09/25/19 17:56 Divalproex Sodium (Depakote) 250 mg BEDTIME ORAL 09/21/19 21:00 10/21/19 20:59 09/28/19 20:24 Docusate Sodium (Colace) 100 mg BID ORAL 09/13/19 09:00 10/13/19 08:59 09/28/19 08:15 Furosemide (Lasix) 40 mg DAILY ORAL 09/13/19 09:00 10/13/19 08:59 09/29/19 09:12 Gabapentin (Neurontin) 300 mg THREE TIMES A DAY ORAL 09/13/19 09:00 10/13/19 08:59 09/29/19 09:13 Guaifenesin (Robitussin) 200 mg Q4H PRN ORAL For Cough 09/12/19 22:30 12/11/19 22:29 Ibuprofen (Motrin) 600 mg Q6H PRN ORAL For Pain 09/12/19 22:30 10/12/19 22:29 Lorazepam (Ativan 2mg/ml 1ml) 1 mg Q6H PRN IV For Anxiety 09/26/19 13:15 10/03/19 13:14 Lorazepam (Ativan) 1 mg Q6H PRN ORAL For Anxiety 09/26/19 13:15 10/03/19 13:14 Metoprolol Tartrate (Lopressor) 100 mg DAILY ORAL 09/13/19 09:00 12/12/19 08:59 09/29/19 09:13 Multivitamins Therapeutic (Therapeutic Multivitamin) 1 ea DAILY ORAL 09/13/19 09:00 10/13/19 08:59 09/29/19 09:13 Pantoprazole (Protonix) 40 mg DAILY ORAL 09/13/19 09:00 10/13/19 08:59 09/29/19 09:12 Polyethylene Glycol (Miralax) 17 gm DAILY ORAL 09/13/19 09:00 10/13/19 08:59 09/27/19 08:27 Maxi King MD September 29, 2019 10:49
--- NOTE | 2019-09-29 11:32 | NUR ---
DISCHARGE PLANNING PATIENT HAS BEEN REFERRED BACK TO [facility] P: [phone] F: [phone] S/W ALEXANDER AT [facility] WHO INFORMED CM THAT THEY ARE CURRENTLY UNABLE TO READMIT ANY PATIENTS AT THIS TIME DUE TO STAFFING ISSUES. STATES THEY ANTICIPATE TO RESUME ADMISSIONS EARLY Sat09/30/2019. WILL FOLLOW UP.
[2019-09-29 12:00] VITALS: BP 125/60
[2019-09-29 16:00] VITALS: BP 118/57
--- NOTE | 2019-09-29 16:56 | Pulmonology Progress Note ---
Assessment/Plan Assessment/Plan IMPRESSION: 1. History of previous UTI. 2. Bronchitis. 3. Positive COVID-19. 4. CVA. DISCUSSION: The patient is a senior living resident. Agree with antibiotics. Has positive PCR for COVID-19. Saturating well on 2L/min O2 Yandel Yap M.D. Subjective ROS Limited/Unobtainable: Yes Interval Events: None new Constitutional: Denies: fever HEENT: Repors: no symptoms Respiratory: Reports: no symptoms Cardiovascular: Reports: no symptoms Gastrointestinal/Abdominal: Denies: nausea, vomiting, diarrhea Genitourinary: Reports: no symptoms Musculoskeletal: Denies: pain Allergies: Coded Allergies: No Known Allergies (Unverified , 09/03/14) Objective Last 24 Hour Vital Signs Date Time Temp Pulse Resp B/P (MAP) Pulse Ox O2 Delivery O2 Flow Rate FiO2 09/29/19 12:00 98.4 73 18 125/60 (81) 95 09/29/19 09:13 91 129/64 09/29/19 09:13 91 129/64 09/29/19 09:00 Nasal Cannula 2.0 09/29/19 08:00 98.6 91 18 129/64 (85) 96 09/29/19 04:00 98.7 84 20 120/59 (79) 97 09/29/19 00:00 98.0 86 20 130/70 (90) 97 09/28/19 22:33 Nasal Cannula 2.0 09/28/19 20:00 98.0 83 20 123/66 (85) 97 Intake and Output 09/28/19 09/29/19 19:00 07:00 Intake Total 200 ml Output Total 400 ml 400 ml Balance -200 ml -400 ml Intake Oral 200 ml Output Urine Total 400 ml 400 ml # Voids 2 # Bowel Movements 1 General Appearance: no acute distress HEENT: mucous membranes moist Respiratory/Chest: chest wall non-tender Cardiovascular: normal peripheral pulses Abdomen: soft, non tender Extremities: no edema Neurologic/Psychiatric: alert, responsive Microbiology Date/Time Source Procedure Growth Status 09/27/19 10:35 Nasopharynx Coronavirus COVID-19 PCR ([facility]) - Final Complete Current Medications Medications (Trade) Dose Ordered Sig/Yaz Route PRN Reason Start Time Stop Time Status Last Admin Dose Admin Acetaminophen (Tylenol) 650 mg Q4H PRN ORAL Mild Pain (Pain Scale 1-3) 09/12/19 22:15 10/12/19 22:14 09/18/19 03:57 Albuterol/ Ipratropium (Combivent Respimat) 1 puff Q4H PRN INH SOB/WHEEZING 09/12/19 22:45 10/12/19 22:44 Amlodipine Besylate (Norvasc) 10 mg DAILY ORAL 09/13/19 09:00 10/13/19 08:59 09/29/19 09:13 Ascorbic Acid (Vitamin C) 500 mg DAILY ORAL 09/13/19 09:00 10/13/19 08:59 09/29/19 09:13 Brimonidine Tartrate (Alphagan) 1 drop TWICE A DAY BOTH EYES 09/13/19 09:00 12/12/19 08:59 09/29/19 09:00 Divalproex Sodium (Depakote) 250 mg BEDTIME ORAL 09/21/19 21:00 10/21/19 20:59 09/28/19 20:24 Docusate Sodium (Colace) 100 mg BID ORAL 09/13/19 09:00 10/13/19 08:59 09/28/19 08:15 Furosemide (Lasix) 40 mg DAILY ORAL 09/13/19 09:00 10/13/19 08:59 09/29/19 09:12 Gabapentin (Neurontin) 300 mg THREE TIMES A DAY ORAL 09/13/19 09:00 10/13/19 08:59 09/29/19 12:43 Guaifenesin (Robitussin) 200 mg Q4H PRN ORAL For Cough 09/12/19 22:30 12/11/19 22:29 Ibuprofen (Motrin) 600 mg Q6H PRN ORAL For Pain 09/12/19 22:30 10/12/19 22:29 Lorazepam (Ativan 2mg/ml 1ml) 1 mg Q6H PRN IV For Anxiety 09/26/19 13:15 10/03/19 13:14 Lorazepam (Ativan) 1 mg Q6H PRN ORAL For Anxiety 09/26/19 13:15 10/03/19 13:14 Metoprolol Tartrate (Lopressor) 100 mg DAILY ORAL 09/13/19 09:00 12/12/19 08:59 09/29/19 09:13 Multivitamins Therapeutic (Therapeutic Multivitamin) 1 ea DAILY ORAL 09/13/19 09:00 10/13/19 08:59 09/29/19 09:13 Pantoprazole (Protonix) 40 mg DAILY ORAL 09/13/19 09:00 10/13/19 08:59 09/29/19 09:12 Polyethylene Glycol (Miralax) 17 gm DAILY ORAL 09/13/19 09:00 10/13/19 08:59 09/27/19 08:27 Yandel Yap MD September 29, 2019 16:56
--- NOTE | 2019-09-29 19:15 | NUR ---
HAND-OFF: Report given to Loli TREVIÑO.
[2019-09-29 20:00] VITALS: BP 127/65
--- NOTE | 2019-09-29 20:00 | NUR ---
NURSE NOTES: Received patient awake in bed, dry and comfortable, able to make needs known, patient wants head of bed flat. No IV access, MD aware. [place] catheter on, draining yellow urine. Patient on nasal cannula 2L, tolerating well. Bed low and locked. Needs attended to at this time.
--- NOTE | 2019-09-29 22:00 | Progress Note ---
DATE: 09/29/2019 SUBJECTIVE: This is an elderly 80-year-old male came with fever, sepsis, rule out COVID. The patient was found to have COVID positive. He has been on isolation. He has no fever, physically being fine. PHYSICAL EXAMINATION: VITAL SIGNS: Stable. CHEST: Bilaterally clear. CARDIOVASCULAR: Regular rhythm. No gallop. No murmur. ABDOMEN: Soft. Positive bowel sounds. EXTREMITIES: CCE. ASSESSMENT: 1. COVID pneumonia. 2. Acute bronchitis. 3. CVA. 4. Hypertension. 5. We will continue isolation. We will continue monitor. Waiting for COVID results. Continue supportive treatment. Vincent Foote M.D. DR: Dennis JOB#: [id number] CC:
--- NOTE | 2019-09-29 23:07 | Psych Consult Progress Note ---
Psychiatry Progress Note Psychiatry Progress Note Medications Current Medications Medications (Trade) Dose Ordered Sig/Yaz Route PRN Reason Start Time Stop Time Status Last Admin Dose Admin Acetaminophen (Tylenol) 650 mg Q4H PRN ORAL Mild Pain (Pain Scale 1-3) 09/12/19 22:15 10/12/19 22:14 09/18/19 03:57 Albuterol/ Ipratropium (Combivent Respimat) 1 puff Q4H PRN INH SOB/WHEEZING 09/12/19 22:45 10/12/19 22:44 Amlodipine Besylate (Norvasc) 10 mg DAILY ORAL 09/13/19 09:00 10/13/19 08:59 09/29/19 09:13 Ascorbic Acid (Vitamin C) 500 mg DAILY ORAL 09/13/19 09:00 10/13/19 08:59 09/29/19 09:13 Brimonidine Tartrate (Alphagan) 1 drop TWICE A DAY BOTH EYES 09/13/19 09:00 12/12/19 08:59 09/29/19 18:01 Divalproex Sodium (Depakote) 250 mg BEDTIME ORAL 09/21/19 21:00 10/21/19 20:59 09/29/19 20:09 Docusate Sodium (Colace) 100 mg BID ORAL 09/13/19 09:00 10/13/19 08:59 09/28/19 08:15 Furosemide (Lasix) 40 mg DAILY ORAL 09/13/19 09:00 10/13/19 08:59 09/29/19 09:12 Gabapentin (Neurontin) 300 mg THREE TIMES A DAY ORAL 09/13/19 09:00 10/13/19 08:59 09/29/19 18:01 Guaifenesin (Robitussin) 200 mg Q4H PRN ORAL For Cough 09/12/19 22:30 12/11/19 22:29 Ibuprofen (Motrin) 600 mg Q6H PRN ORAL For Pain 09/12/19 22:30 10/12/19 22:29 Lorazepam (Ativan 2mg/ml 1ml) 1 mg Q6H PRN IV For Anxiety 09/26/19 13:15 10/03/19 13:14 Lorazepam (Ativan) 1 mg Q6H PRN ORAL For Anxiety 09/26/19 13:15 10/03/19 13:14 Metoprolol Tartrate (Lopressor) 100 mg DAILY ORAL 09/13/19 09:00 12/12/19 08:59 09/29/19 09:13 Multivitamins Therapeutic (Therapeutic Multivitamin) 1 ea DAILY ORAL 09/13/19 09:00 10/13/19 08:59 09/29/19 09:13 Pantoprazole (Protonix) 40 mg DAILY ORAL 09/13/19 09:00 10/13/19 08:59 09/29/19 09:12 Polyethylene Glycol (Miralax) 17 gm DAILY ORAL 09/13/19 09:00 10/13/19 08:59 09/27/19 08:27 Neurological/Psychiatric: Reports: anxiety, depressed, emotional problems Allergies: Coded Allergies: No Known Allergies (Unverified , 09/03/14) Objective Data Height (Feet): 5 Height (Inches): 11.00 Weight (Pounds): 174 Additional Comments: alert, disoriented to situation. Mood is agitated. Affect is flat. Thought process is concrete. Thought content, no suicidal or homicidal ideations. Cognition is impaired. Insight and judgment impaired. Assessment/Plan Assessment/Plan: ASSESSMENT: Dementia with behavior disturbance. PLAN: 1. We will start the patient on Ativan as needed. 2. Depakote 250 mg at bedtime. Bhavin Bailon MD September 29, 2019 23:07
[2019-09-30] VITALS: BP 126/62
[2019-09-30 04:00] VITALS: BP 126/62
--- NOTE | 2019-09-30 07:17 | NUR ---
HAND-OFF: Report given to KAMILA Crenshaw.
[2019-09-30 08:00] VITALS: BP 134/70
--- NOTE | 2019-09-30 08:00 | NUR ---
NURSE NOTES: Patient awake and alert to name,respirations unlabored.02 on at 2L N/C optiform dressings noted to Bilateral heels.Optiform dressing to the sacral area.patient has no IV site,per report Doctor is aware.Bed alarm is on,call light within reach.
[2019-09-30] MEDS: Docusate 100mg cap ORAL SCH ×2 (09:35→17:58)
[2019-09-30] MEDS: Multivitamin w/Minerals tab ORAL SCH (09:36)
[2019-09-30] MEDS: Miralax 17gm pkt ORAL SCH (09:36)
[2019-09-30] MEDS: Ascorbic Acid 500mg tab ORAL SCH (09:37)
[2019-09-30] MEDS: Brimonidine 0.2% Opth Sol BOTH EYES SCH ×2 (09:37→17:58)
[2019-09-30] MEDS: Furosemide 40mg tab ORAL SCH (09:40)
[2019-09-30] MEDS: Metoprolol Tartrate 100mg tab ORAL SCH (09:41)
--- NOTE | 2019-09-30 10:49 | Infectious Diseases Prog Note ---
Assessment/Plan Assessment/Plan antibiotics : none A 1. COVID 19 pneumonia s/p hydroxychloroquine rx test + 5.3.20 2. bronchitis 3. CVA P 1. continue off antibiotics 2. will follow up cultures 3. continue isolation Subjective ROS Limited/Unobtainable: Yes Allergies: Coded Allergies: No Known Allergies (Unverified , 09/03/14) Objective Vital Signs Last 24 Hour Vital Signs Date Time Temp Pulse Resp B/P (MAP) Pulse Ox O2 Delivery O2 Flow Rate FiO2 09/30/19 09:46 Nasal Cannula 2.0 09/30/19 09:41 87 135/67 09/30/19 09:41 87 135/67 09/30/19 08:00 97.9 90 19 134/70 (91) 93 09/30/19 04:00 97.5 89 22 126/62 (83) 94 09/30/19 00:00 98.3 89 22 126/62 (83) 94 09/29/19 21:49 Nasal Cannula 2.0 09/29/19 20:00 98.1 83 20 127/65 (85) 94 09/29/19 16:00 98.5 74 17 118/57 (77) 94 09/29/19 12:00 98.4 73 18 125/60 (81) 95 Height (Feet): 5 Height (Inches): 11.00 Weight (Pounds): 169 Current Medications Medications (Trade) Dose Ordered Sig/Yaz Route PRN Reason Start Time Stop Time Status Last Admin Dose Admin Acetaminophen (Tylenol) 650 mg Q4H PRN ORAL Mild Pain (Pain Scale 1-3) 09/12/19 22:15 10/12/19 22:14 09/18/19 03:57 Albuterol/ Ipratropium (Combivent Respimat) 1 puff Q4H PRN INH SOB/WHEEZING 09/12/19 22:45 10/12/19 22:44 Amlodipine Besylate (Norvasc) 10 mg DAILY ORAL 09/13/19 09:00 10/13/19 08:59 09/30/19 09:41 Ascorbic Acid (Vitamin C) 500 mg DAILY ORAL 09/13/19 09:00 10/13/19 08:59 09/30/19 09:37 Brimonidine Tartrate (Alphagan) 1 drop TWICE A DAY BOTH EYES 09/13/19 09:00 12/12/19 08:59 09/30/19 09:37 Divalproex Sodium (Depakote) 250 mg BEDTIME ORAL 09/21/19 21:00 10/21/19 20:59 09/29/19 20:09 Docusate Sodium (Colace) 100 mg BID ORAL 09/13/19 09:00 10/13/19 08:59 09/30/19 09:35 Furosemide (Lasix) 40 mg DAILY ORAL 09/13/19 09:00 10/13/19 08:59 09/30/19 09:40 Gabapentin (Neurontin) 300 mg THREE TIMES A DAY ORAL 09/13/19 09:00 10/13/19 08:59 09/30/19 09:36 Guaifenesin (Robitussin) 200 mg Q4H PRN ORAL For Cough 09/12/19 22:30 12/11/19 22:29 Ibuprofen (Motrin) 600 mg Q6H PRN ORAL For Pain 09/12/19 22:30 10/12/19 22:29 Lorazepam (Ativan 2mg/ml 1ml) 1 mg Q6H PRN IV For Anxiety 09/26/19 13:15 10/03/19 13:14 Lorazepam (Ativan) 1 mg Q6H PRN ORAL For Anxiety 09/26/19 13:15 10/03/19 13:14 Metoprolol Tartrate (Lopressor) 100 mg DAILY ORAL 09/13/19 09:00 12/12/19 08:59 09/30/19 09:41 Multivitamins Therapeutic (Therapeutic Multivitamin) 1 ea DAILY ORAL 09/13/19 09:00 10/13/19 08:59 09/30/19 09:36 Pantoprazole (Protonix) 40 mg DAILY ORAL 09/13/19 09:00 10/13/19 08:59 09/30/19 09:36 Polyethylene Glycol (Miralax) 17 gm DAILY ORAL 09/13/19 09:00 10/13/19 08:59 09/30/19 09:36 Maxi King MD September 30, 2019 10:49
--- NOTE | 2019-09-30 11:04 | Pulmonology Progress Note ---
Assessment/Plan Assessment/Plan IMPRESSION: 1. History of previous UTI. 2. Bronchitis. 3. Positive COVID-19. 4. CVA. DISCUSSION: The patient is a assisted resident. Agree with antibiotics. Has positive PCR for COVID-19. Saturating well on 2L/min O2 Yandel Yap M.D. Subjective ROS Limited/Unobtainable: Yes Interval Events: None new Constitutional: Denies: fever HEENT: Repors: no symptoms Respiratory: Reports: no symptoms Cardiovascular: Reports: no symptoms Gastrointestinal/Abdominal: Denies: nausea, vomiting, diarrhea Genitourinary: Reports: no symptoms Musculoskeletal: Denies: pain Allergies: Coded Allergies: No Known Allergies (Unverified , 09/03/14) Objective Last 24 Hour Vital Signs Date Time Temp Pulse Resp B/P (MAP) Pulse Ox O2 Delivery O2 Flow Rate FiO2 09/30/19 09:46 Nasal Cannula 2.0 09/30/19 09:41 87 135/67 09/30/19 09:41 87 135/67 09/30/19 08:00 97.9 90 19 134/70 (91) 93 09/30/19 04:00 97.5 89 22 126/62 (83) 94 09/30/19 00:00 98.3 89 22 126/62 (83) 94 09/29/19 21:49 Nasal Cannula 2.0 09/29/19 20:00 98.1 83 20 127/65 (85) 94 09/29/19 16:00 98.5 74 17 118/57 (77) 94 09/29/19 12:00 98.4 73 18 125/60 (81) 95 Intake and Output 09/29/19 09/30/19 19:00 07:00 Intake Total 850 ml Balance 850 ml Other 850 ml # Voids 3 General Appearance: no acute distress HEENT: mucous membranes moist Respiratory/Chest: chest wall non-tender Cardiovascular: normal peripheral pulses Abdomen: soft, non tender Extremities: no edema Neurologic/Psychiatric: alert, responsive Current Medications Medications (Trade) Dose Ordered Sig/Yaz Route PRN Reason Start Time Stop Time Status Last Admin Dose Admin Acetaminophen (Tylenol) 650 mg Q4H PRN ORAL Mild Pain (Pain Scale 1-3) 09/12/19 22:15 10/12/19 22:14 09/18/19 03:57 Albuterol/ Ipratropium (Combivent Respimat) 1 puff Q4H PRN INH SOB/WHEEZING 09/12/19 22:45 10/12/19 22:44 Amlodipine Besylate (Norvasc) 10 mg DAILY ORAL 09/13/19 09:00 10/13/19 08:59 09/30/19 09:41 Ascorbic Acid (Vitamin C) 500 mg DAILY ORAL 09/13/19 09:00 10/13/19 08:59 09/30/19 09:37 Brimonidine Tartrate (Alphagan) 1 drop TWICE A DAY BOTH EYES 09/13/19 09:00 12/12/19 08:59 09/30/19 09:37 Divalproex Sodium (Depakote) 250 mg BEDTIME ORAL 09/21/19 21:00 10/21/19 20:59 09/29/19 20:09 Docusate Sodium (Colace) 100 mg BID ORAL 09/13/19 09:00 10/13/19 08:59 09/30/19 09:35 Furosemide (Lasix) 40 mg DAILY ORAL 09/13/19 09:00 10/13/19 08:59 09/30/19 09:40 Gabapentin (Neurontin) 300 mg THREE TIMES A DAY ORAL 09/13/19 09:00 10/13/19 08:59 09/30/19 09:36 Guaifenesin (Robitussin) 200 mg Q4H PRN ORAL For Cough 09/12/19 22:30 12/11/19 22:29 Ibuprofen (Motrin) 600 mg Q6H PRN ORAL For Pain 09/12/19 22:30 10/12/19 22:29 Lorazepam (Ativan 2mg/ml 1ml) 1 mg Q6H PRN IV For Anxiety 09/26/19 13:15 10/03/19 13:14 Lorazepam (Ativan) 1 mg Q6H PRN ORAL For Anxiety 09/26/19 13:15 10/03/19 13:14 Metoprolol Tartrate (Lopressor) 100 mg DAILY ORAL 09/13/19 09:00 12/12/19 08:59 09/30/19 09:41 Multivitamins Therapeutic (Therapeutic Multivitamin) 1 ea DAILY ORAL 09/13/19 09:00 10/13/19 08:59 09/30/19 09:36 Pantoprazole (Protonix) 40 mg DAILY ORAL 09/13/19 09:00 10/13/19 08:59 09/30/19 09:36 Polyethylene Glycol (Miralax) 17 gm DAILY ORAL 09/13/19 09:00 10/13/19 08:59 09/30/19 09:36 Yandel Yap MD September 30, 2019 11:04
[2019-09-30 12:00] VITALS: BP 128/65
--- NOTE | 2019-09-30 13:27 | NUR ---
MANAGEMENT MANAGER NOTE S/W CHRISTO AT [facility]. STATES THEY ARE STILL UNABLE TO READMIT ANY PATIENTS AT THIS TIME DUE TO CONTINUED LACK OF STAFFING. SAYS THEY ARE ACTIVELY WORKING TO ACCOMMODATE READMISSIONS EDUAR.
--- NOTE | 2019-09-30 14:18 | NUR ---
CASE MANAGEMENT:REVIEW SI;COVID-19 PNA BRONCHITIS. REPEAT COVID-19 09/27/19 ~ DETECTED 98.3 90 22 134/62 93% 2L NC IS;COMBIVENT INH Q4 HRS PRN PROTONIX PO QD LASIX PO QD VIT C PO QD DEPAKOTE PO HS LOPRESSOR PO QD MED SURG STATUS DCP;FROM [facility] PLAN;DC TO SNF WHEN FACILITY IS ABLE TO READMIT
[2019-09-30 16:00] VITALS: BP 125/64
--- NOTE | 2019-09-30 17:59 | Progress Note ---
DATE: 09/30/2019 SUBJECTIVE: This is elderly male, currently in bed comfortable. Repeat COVID is still positive. OBJECTIVE: VITAL SIGNS: Blood pressure 135/67, pulse 87. No fever. CHEST: Bilaterally clear. CARDIOVASCULAR: Regular rhythm. ABDOMEN: Soft. EXTREMITIES: CCE. NEUROLOGICAL: Patient has no focal deficit. ASSESSMENT: 1. COVID positive. 2. Depression. 3. Acute bronchitis. 4. Fever is resolved. 5. Discussed with charge nurse and Dr. King. May be discharge plan. Vincent Foote M.D. DR: KATE JOB#: [id number] CC:
--- NOTE | 2019-09-30 18:30 | NUR ---
NURSE NOTES: P atient resting,respirations remains unlabored.Bed alarm on,call light within reach.
--- NOTE | 2019-09-30 19:38 | NUR ---
HAND-OFF: Report given to Roby TREVIÑO. Addendum: 09/30/19 at 2 by MERON WARD RN RN RN aware of fall risk.
--- NOTE | 2019-09-30 19:39 | NUR ---
NURSE NOTES: Received patient in bed. A&OX2. IV site patent and intact. NC 2L on. No s/s of respiratory distress noted. Bed in lowest position. Call light within reach. Will continue to monitor.
[2019-09-30 20:00] VITALS: BP 134/71
--- NOTE | 2019-09-30 20:15 | Psych Consult Progress Note ---
Psychiatry Progress Note Psychiatry Progress Note Medications Current Medications Medications (Trade) Dose Ordered Sig/Yaz Route PRN Reason Start Time Stop Time Status Last Admin Dose Admin Acetaminophen (Tylenol) 650 mg Q4H PRN ORAL Mild Pain (Pain Scale 1-3) 09/12/19 22:15 10/12/19 22:14 09/18/19 03:57 Albuterol/ Ipratropium (Combivent Respimat) 1 puff Q4H PRN INH SOB/WHEEZING 09/12/19 22:45 10/12/19 22:44 Amlodipine Besylate (Norvasc) 10 mg DAILY ORAL 09/13/19 09:00 10/13/19 08:59 09/30/19 09:41 Ascorbic Acid (Vitamin C) 500 mg DAILY ORAL 09/13/19 09:00 10/13/19 08:59 09/30/19 09:37 Brimonidine Tartrate (Alphagan) 1 drop TWICE A DAY BOTH EYES 09/13/19 09:00 12/12/19 08:59 09/30/19 17:58 Divalproex Sodium (Depakote) 250 mg BEDTIME ORAL 09/21/19 21:00 10/21/19 20:59 09/29/19 20:09 Docusate Sodium (Colace) 100 mg BID ORAL 09/13/19 09:00 10/13/19 08:59 09/30/19 17:58 Furosemide (Lasix) 40 mg DAILY ORAL 09/13/19 09:00 10/13/19 08:59 09/30/19 09:40 Gabapentin (Neurontin) 300 mg THREE TIMES A DAY ORAL 09/13/19 09:00 10/13/19 08:59 09/30/19 17:58 Guaifenesin (Robitussin) 200 mg Q4H PRN ORAL For Cough 09/12/19 22:30 12/11/19 22:29 Ibuprofen (Motrin) 600 mg Q6H PRN ORAL For Pain 09/12/19 22:30 10/12/19 22:29 Lorazepam (Ativan 2mg/ml 1ml) 1 mg Q6H PRN IV For Anxiety 09/26/19 13:15 10/03/19 13:14 Lorazepam (Ativan) 1 mg Q6H PRN ORAL For Anxiety 09/26/19 13:15 10/03/19 13:14 Metoprolol Tartrate (Lopressor) 100 mg DAILY ORAL 09/13/19 09:00 12/12/19 08:59 09/30/19 09:41 Multivitamins Therapeutic (Therapeutic Multivitamin) 1 ea DAILY ORAL 09/13/19 09:00 10/13/19 08:59 09/30/19 09:36 Pantoprazole (Protonix) 40 mg DAILY ORAL 09/13/19 09:00 10/13/19 08:59 09/30/19 09:36 Polyethylene Glycol (Miralax) 17 gm DAILY ORAL 09/13/19 09:00 10/13/19 08:59 09/30/19 09:36 Allergies: Coded Allergies: No Known Allergies (Unverified , 09/03/14) Objective Data Height (Feet): 5 Height (Inches): 11.00 Weight (Pounds): 169 Assessment/Plan Assessment/Plan: ASSESSMENT: Dementia with behavior disturbance. PLAN: 1. We will start the patient on Ativan as needed. 2. Depakote 250 mg at bedtime. Bhavin Bailon MD September 30, 2019 20:15
[2019-10-01] VITALS: BP 127/44
[2019-10-01 04:00] VITALS: BP 95/60
--- NOTE | 2019-10-01 07:18 | NUR ---
HAND-OFF: Report given to Flower TREVIÑO.
--- NOTE | 2019-10-01 07:50 | NUR ---
NURSE NOTES: Patient awake and alert,respirations unlabored.02 on at 2L.Bed alarm on,call light within reach.
[2019-10-01 08:56] VITALS: BP 129/64
[2019-10-01] MEDS: Docusate 100mg cap ORAL SCH ×2 (08:58→19:13)
[2019-10-01] MEDS: Ascorbic Acid 500mg tab ORAL SCH (08:59)
[2019-10-01] MEDS: Multivitamin w/Minerals tab ORAL SCH (08:59)
[2019-10-01] MEDS: Brimonidine 0.2% Opth Sol BOTH EYES SCH ×3 (09:00→18:00)
[2019-10-01] MEDS: Furosemide 40mg tab ORAL SCH (09:00)
[2019-10-01] MEDS: Metoprolol Tartrate 100mg tab ORAL SCH (09:00)
[2019-10-01] MEDS: Miralax 17gm pkt ORAL SCH (09:05)
--- NOTE | 2019-10-01 11:17 | Pulmonology Progress Note ---
Subjective ROS Limited/Unobtainable: Yes Interval Events: None new Constitutional: Denies: fever HEENT: Repors: no symptoms Respiratory: Reports: no symptoms Cardiovascular: Reports: no symptoms Gastrointestinal/Abdominal: Denies: nausea, vomiting, diarrhea Genitourinary: Reports: no symptoms Musculoskeletal: Denies: pain Allergies: Coded Allergies: No Known Allergies (Unverified , 09/03/14) Objective Last 24 Hour Vital Signs Date Time Temp Pulse Resp B/P (MAP) Pulse Ox O2 Delivery O2 Flow Rate FiO2 10/01/19 09:46 Nasal Cannula 2.0 10/01/19 09:00 88 129/64 10/01/19 08:59 88 129/64 10/01/19 08:56 98.4 88 19 129/64 (85) 92 10/01/19 04:00 98.2 92 16 95/60 (72) 95 10/01/19 00:00 97.8 87 19 127/44 (71) 94 09/30/19 21:00 Nasal Cannula 2.0 09/30/19 20:00 97.7 77 17 134/71 (92) 94 09/30/19 16:00 98.1 72 19 125/64 (84) 93 09/30/19 12:00 98.1 69 19 128/65 (86) 93 Intake and Output 09/30/19 10/01/19 19:00 07:00 Intake Total 720 ml 240 ml Balance 720 ml 240 ml Intake Oral 720 ml 240 ml # Voids 2 2 # Bowel Movements 1 1 General Appearance: no acute distress HEENT: mucous membranes moist Respiratory/Chest: chest wall non-tender Cardiovascular: normal peripheral pulses Abdomen: soft, non tender Extremities: no edema Neurologic/Psychiatric: alert, responsive Current Medications Medications (Trade) Dose Ordered Sig/Yaz Route PRN Reason Start Time Stop Time Status Last Admin Dose Admin Acetaminophen (Tylenol) 650 mg Q4H PRN ORAL Mild Pain (Pain Scale 1-3) 09/12/19 22:15 10/12/19 22:14 09/18/19 03:57 Albuterol/ Ipratropium (Combivent Respimat) 1 puff Q4H PRN INH SOB/WHEEZING 09/12/19 22:45 10/12/19 22:44 Amlodipine Besylate (Norvasc) 10 mg DAILY ORAL 09/13/19 09:00 10/13/19 08:59 10/01/19 08:59 Ascorbic Acid (Vitamin C) 500 mg DAILY ORAL 09/13/19 09:00 10/13/19 08:59 10/01/19 08:59 Brimonidine Tartrate (Alphagan) 1 drop TWICE A DAY BOTH EYES 09/13/19 09:00 12/12/19 08:59 09/30/19 17:58 Divalproex Sodium (Depakote) 250 mg BEDTIME ORAL 09/21/19 21:00 10/21/19 20:59 09/29/19 20:09 Docusate Sodium (Colace) 100 mg BID ORAL 09/13/19 09:00 10/13/19 08:59 10/01/19 08:58 Furosemide (Lasix) 40 mg DAILY ORAL 09/13/19 09:00 10/13/19 08:59 10/01/19 09:00 Gabapentin (Neurontin) 300 mg THREE TIMES A DAY ORAL 09/13/19 09:00 10/13/19 08:59 10/01/19 08:59 Guaifenesin (Robitussin) 200 mg Q4H PRN ORAL For Cough 09/12/19 22:30 12/11/19 22:29 Ibuprofen (Motrin) 600 mg Q6H PRN ORAL For Pain 09/12/19 22:30 10/12/19 22:29 Lorazepam (Ativan 2mg/ml 1ml) 1 mg Q6H PRN IV For Anxiety 09/26/19 13:15 10/03/19 13:14 Lorazepam (Ativan) 1 mg Q6H PRN ORAL For Anxiety 09/26/19 13:15 10/03/19 13:14 Metoprolol Tartrate (Lopressor) 100 mg DAILY ORAL 09/13/19 09:00 12/12/19 08:59 10/01/19 09:00 Multivitamins Therapeutic (Therapeutic Multivitamin) 1 ea DAILY ORAL 09/13/19 09:00 10/13/19 08:59 10/01/19 08:59 Pantoprazole (Protonix) 40 mg DAILY ORAL 09/13/19 09:00 10/13/19 08:59 10/01/19 08:58 Polyethylene Glycol (Miralax) 17 gm DAILY ORAL 09/13/19 09:00 10/13/19 08:59 10/01/19 09:05 Assessment/Plan Assessment/Plan IMPRESSION: 1. History of previous UTI. 2. Bronchitis. 3. Positive COVID-19. 4. CVA. DISCUSSION: The patient is a prison resident. Agree with antibiotics. Has positive PCR for COVID-19. Saturating well on 2L/min O2 Yen Valdez Omar Syed MD October 01, 2019 11:17
--- NOTE | 2019-10-01 11:28 | NUR ---
*-* DISCHARGE PLANNING *-* PATIENT HAS BEEN REFERRED TO: [facility] P: [phone] F: [phone] EFAX: [phone] Addendum: 10/01/19 at 1510 by WALTER WALKER CM S/W MONIE AT [facility] THEY DO NOT HAVE ANY BEDS AVAILABLE *-*
--- NOTE | 2019-10-01 11:55 | Infectious Diseases Prog Note ---
Assessment/Plan Assessment/Plan A 1. COVID 19 pneumonia 2. bronchitis 3. CVA P 1. Finished hydroxychloroquine course 2. will follow up repeated COVID19 test 3. continue isolation Subjective ROS Limited/Unobtainable: Yes Allergies: Coded Allergies: No Known Allergies (Unverified , 09/03/14) Objective Vital Signs Last 24 Hour Vital Signs Date Time Temp Pulse Resp B/P (MAP) Pulse Ox O2 Delivery O2 Flow Rate FiO2 10/01/19 09:46 Nasal Cannula 2.0 10/01/19 09:00 88 129/64 10/01/19 08:59 88 129/64 10/01/19 08:56 98.4 88 19 129/64 (85) 92 10/01/19 04:00 98.2 92 16 95/60 (72) 95 10/01/19 00:00 97.8 87 19 127/44 (71) 94 09/30/19 21:00 Nasal Cannula 2.0 09/30/19 20:00 97.7 77 17 134/71 (92) 94 09/30/19 16:00 98.1 72 19 125/64 (84) 93 09/30/19 12:00 98.1 69 19 128/65 (86) 93 Height (Feet): 5 Height (Inches): 11.00 Weight (Pounds): 169 General Appearance: no acute distress HEENT: mucous membranes moist Respiratory/Chest: other - oxygen by nasal cannula Cardiovascular: normal rate Abdomen: soft, non tender Neurologic/Psychiatric: other - sleeping Current Medications Medications (Trade) Dose Ordered Sig/Yaz Route PRN Reason Start Time Stop Time Status Last Admin Dose Admin Acetaminophen (Tylenol) 650 mg Q4H PRN ORAL Mild Pain (Pain Scale 1-3) 09/12/19 22:15 10/12/19 22:14 09/18/19 03:57 Albuterol/ Ipratropium (Combivent Respimat) 1 puff Q4H PRN INH SOB/WHEEZING 09/12/19 22:45 10/12/19 22:44 Amlodipine Besylate (Norvasc) 10 mg DAILY ORAL 09/13/19 09:00 10/13/19 08:59 10/01/19 08:59 Ascorbic Acid (Vitamin C) 500 mg DAILY ORAL 09/13/19 09:00 10/13/19 08:59 5/7/20 08:59 Brimonidine Tartrate (Alphagan) 1 drop TWICE A DAY BOTH EYES 09/13/19 09:00 12/12/19 08:59 09/30/19 17:58 Divalproex Sodium (Depakote) 250 mg BEDTIME ORAL 09/21/19 21:00 10/21/19 20:59 09/29/19 20:09 Docusate Sodium (Colace) 100 mg BID ORAL 09/13/19 09:00 10/13/19 08:59 10/01/19 08:58 Furosemide (Lasix) 40 mg DAILY ORAL 09/13/19 09:00 10/13/19 08:59 10/01/19 09:00 Gabapentin (Neurontin) 300 mg THREE TIMES A DAY ORAL 09/13/19 09:00 10/13/19 08:59 10/01/19 08:59 Guaifenesin (Robitussin) 200 mg Q4H PRN ORAL For Cough 09/12/19 22:30 12/11/19 22:29 Ibuprofen (Motrin) 600 mg Q6H PRN ORAL For Pain 09/12/19 22:30 10/12/19 22:29 Lorazepam (Ativan 2mg/ml 1ml) 1 mg Q6H PRN IV For Anxiety 09/26/19 13:15 10/03/19 13:14 Lorazepam (Ativan) 1 mg Q6H PRN ORAL For Anxiety 09/26/19 13:15 10/03/19 13:14 Metoprolol Tartrate (Lopressor) 100 mg DAILY ORAL 09/13/19 09:00 12/12/19 08:59 10/01/19 09:00 Multivitamins Therapeutic (Therapeutic Multivitamin) 1 ea DAILY ORAL 09/13/19 09:00 10/13/19 08:59 10/01/19 08:59 Pantoprazole (Protonix) 40 mg DAILY ORAL 09/13/19 09:00 10/13/19 08:59 10/01/19 08:58 Polyethylene Glycol (Miralax) 17 gm DAILY ORAL 09/13/19 09:00 10/13/19 08:59 10/01/19 09:05 Casper Amanda MD October 01, 2019 11:55
[2019-10-01 12:00] VITALS: BP 126/68
--- NOTE | 2019-10-01 15:09 | NUR ---
S/W MONIE AT [facility] THEY DO NOT HAVE ANY BEDS AVAILABLE *-*
--- NOTE | 2019-10-01 15:11 | NUR ---
*-* DISCHARGE PLANNING *-* PATIENT HAS BEEN REFERRED TO: [facility] P: [phone] F: [phone] [facility] P: [phone] F: [phone] Addendum: 10/01/19 at 1700 by WALTER WALKER CM WILL FOLLOW UP IN AM
[2019-10-01 16:00] VITALS: BP 112/67
--- NOTE | 2019-10-01 17:27 | NUR ---
NURSE NOTES: Swab sent for Covid-19 as ordered.
--- NOTE | 2019-10-01 19:25 | NUR ---
HAND-OFF: Report given to Preethi TREVIÑO.
[2019-10-01 20:00] VITALS: BP 127/64
[2019-10-02] VITALS: BP 123/67
[2019-10-02 04:00] VITALS: BP 127/67
--- NOTE | 2019-10-02 07:40 | NUR ---
NURSE NOTES: Received patient in bed. patient A&OX2. on O2 at 2L via NC, No s/s of respiratory distress noted.denies pain or discomfort, HL patent, Bed in lowest position. Call light within reach. Will continue to monitor. rafy sargent Addendum: 10/02/19 at 1029 by MANOLO HARMON RN RN NURSE NOTES: Received patient in bed. patient A&OX2. on O2 at 2L via NC, No s/s of respiratory distress noted.denies pain or discomfort,no IV access noted ,aware per noc shift RN,OK not to have an HL , Bed in lowest position. Call light within reach. Will continue to monitor. rafy sargent
--- NOTE | 2019-10-02 07:46 | NUR ---
HAND-OFF: Report given to Radha TREVIÑO.
[2019-10-02 09:00] VITALS: BP 131/66
[2019-10-02] MEDS: Docusate 100mg cap ORAL SCH (09:27)
[2019-10-02] MEDS: Miralax 17gm pkt ORAL SCH (09:27)
[2019-10-02] MEDS: Furosemide 40mg tab ORAL SCH (09:27)
[2019-10-02] MEDS: Metoprolol Tartrate 100mg tab ORAL SCH (09:27)
[2019-10-02] MEDS: Ascorbic Acid 500mg tab ORAL SCH (09:28)
[2019-10-02] MEDS: Brimonidine 0.2% Opth Sol BOTH EYES SCH (09:28)
[2019-10-02] MEDS: Multivitamin w/Minerals tab ORAL SCH (09:28)
--- NOTE | 2019-10-02 10:52 | Infectious Diseases Prog Note ---
Assessment/Plan Assessment/Plan antibiotics : none A 1. COVID 19 pneumonia s/p hydroxychloroquine rx test + 5.3.20 2. bronchitis 3. CVA P 1. continue off antibiotics 2. will follow up cultures 3. continue isolation Subjective ROS Limited/Unobtainable: Yes Allergies: Coded Allergies: No Known Allergies (Unverified , 09/03/14) Objective Vital Signs Last 24 Hour Vital Signs Date Time Temp Pulse Resp B/P (MAP) Pulse Ox O2 Delivery O2 Flow Rate FiO2 10/02/19 09:27 86 131/66 10/02/19 09:27 86 131/66 10/02/19 09:00 Nasal Cannula 2.0 10/02/19 09:00 98.2 86 18 131/66 (87) 95 10/02/19 07:50 96 Nasal Cannula 2.0 28 10/02/19 04:00 98.4 73 18 127/67 (87) 95 10/02/19 00:00 98.5 71 18 123/67 (85) 95 10/01/19 21:00 Nasal Cannula 2.0 10/01/19 20:00 98.4 79 18 127/64 (85) 95 10/01/19 16:00 98.1 69 18 112/67 (82) 96 10/01/19 12:00 99.6 68 19 126/68 (87) 92 Height (Feet): 5 Height (Inches): 11.00 Weight (Pounds): 169 Current Medications Medications (Trade) Dose Ordered Sig/Yaz Route PRN Reason Start Time Stop Time Status Last Admin Dose Admin Acetaminophen (Tylenol) 650 mg Q4H PRN ORAL Mild Pain (Pain Scale 1-3) 09/12/19 22:15 10/12/19 22:14 09/18/19 03:57 Albuterol/ Ipratropium (Combivent Respimat) 1 puff Q4H PRN INH SOB/WHEEZING 09/12/19 22:45 10/12/19 22:44 Amlodipine Besylate (Norvasc) 10 mg DAILY ORAL 09/13/19 09:00 10/13/19 08:59 10/02/19 09:27 Ascorbic Acid (Vitamin C) 500 mg DAILY ORAL 09/13/19 09:00 10/13/19 08:59 10/02/19 09:28 Brimonidine Tartrate (Alphagan) 1 drop TWICE A DAY BOTH EYES 09/13/19 09:00 12/12/19 08:59 10/02/19 09:28 Divalproex Sodium (Depakote) 250 mg BEDTIME ORAL 09/21/19 21:00 10/21/19 20:59 10/01/19 20:26 Docusate Sodium (Colace) 100 mg BID ORAL 09/13/19 09:00 10/13/19 08:59 10/02/19 09:27 Furosemide (Lasix) 40 mg DAILY ORAL 09/13/19 09:00 10/13/19 08:59 10/02/19 09:27 Gabapentin (Neurontin) 300 mg THREE TIMES A DAY ORAL 09/13/19 09:00 10/13/19 08:59 10/02/19 09:27 Guaifenesin (Robitussin) 200 mg Q4H PRN ORAL For Cough 09/12/19 22:30 12/11/19 22:29 Ibuprofen (Motrin) 600 mg Q6H PRN ORAL For Pain 09/12/19 22:30 10/12/19 22:29 Lorazepam (Ativan 2mg/ml 1ml) 1 mg Q6H PRN IV For Anxiety 09/26/19 13:15 10/03/19 13:14 Lorazepam (Ativan) 1 mg Q6H PRN ORAL For Anxiety 09/26/19 13:15 10/03/19 13:14 Metoprolol Tartrate (Lopressor) 100 mg DAILY ORAL 09/13/19 09:00 12/12/19 08:59 10/02/19 09:27 Multivitamins Therapeutic (Therapeutic Multivitamin) 1 ea DAILY ORAL 09/13/19 09:00 10/13/19 08:59 10/02/19 09:28 Pantoprazole (Protonix) 40 mg DAILY ORAL 09/13/19 09:00 10/13/19 08:59 10/02/19 09:27 Polyethylene Glycol (Miralax) 17 gm DAILY ORAL 09/13/19 09:00 10/13/19 08:59 10/02/19 09:27 Maxi King MD October 02, 2019 10:52
--- NOTE | 2019-10-02 11:38 | Pulmonology Progress Note ---
Subjective ROS Limited/Unobtainable: Yes Interval Events: None new Constitutional: Denies: fever HEENT: Repors: no symptoms Respiratory: Reports: no symptoms Cardiovascular: Reports: no symptoms Gastrointestinal/Abdominal: Denies: nausea, vomiting, diarrhea Genitourinary: Reports: no symptoms Musculoskeletal: Denies: pain Allergies: Coded Allergies: No Known Allergies (Unverified , 09/03/14) Objective Last 24 Hour Vital Signs Date Time Temp Pulse Resp B/P (MAP) Pulse Ox O2 Delivery O2 Flow Rate FiO2 10/02/19 09:27 86 131/66 10/02/19 09:27 86 131/66 10/02/19 09:00 Nasal Cannula 2.0 10/02/19 09:00 98.2 86 18 131/66 (87) 95 10/02/19 07:50 96 Nasal Cannula 2.0 28 10/02/19 04:00 98.4 73 18 127/67 (87) 95 10/02/19 00:00 98.5 71 18 123/67 (85) 95 10/01/19 21:00 Nasal Cannula 2.0 10/01/19 20:00 98.4 79 18 127/64 (85) 95 10/01/19 16:00 98.1 69 18 112/67 (82) 96 10/01/19 12:00 99.6 68 19 126/68 (87) 92 Intake and Output 10/01/19 10/02/19 19:00 07:00 Intake Total 720 ml 120 ml Balance 720 ml 120 ml Intake Oral 720 ml 120 ml # Voids 4 2 General Appearance: no acute distress HEENT: mucous membranes moist Respiratory/Chest: chest wall non-tender Cardiovascular: normal peripheral pulses Abdomen: soft, non tender Extremities: no edema Neurologic/Psychiatric: other - sleeping Current Medications Medications (Trade) Dose Ordered Sig/Yaz Route PRN Reason Start Time Stop Time Status Last Admin Dose Admin Acetaminophen (Tylenol) 650 mg Q4H PRN ORAL Mild Pain (Pain Scale 1-3) 09/12/19 22:15 10/12/19 22:14 09/18/19 03:57 Albuterol/ Ipratropium (Combivent Respimat) 1 puff Q4H PRN INH SOB/WHEEZING 09/12/19 22:45 10/12/19 22:44 Amlodipine Besylate (Norvasc) 10 mg DAILY ORAL 09/13/19 09:00 10/13/19 08:59 10/02/19 09:27 Ascorbic Acid (Vitamin C) 500 mg DAILY ORAL 09/13/19 09:00 10/13/19 08:59 10/02/19 09:28 Brimonidine Tartrate (Alphagan) 1 drop TWICE A DAY BOTH EYES 09/13/19 09:00 12/12/19 08:59 10/02/19 09:28 Divalproex Sodium (Depakote) 250 mg BEDTIME ORAL 09/21/19 21:00 10/21/19 20:59 10/01/19 20:26 Docusate Sodium (Colace) 100 mg BID ORAL 09/13/19 09:00 10/13/19 08:59 10/02/19 09:27 Furosemide (Lasix) 40 mg DAILY ORAL 09/13/19 09:00 10/13/19 08:59 10/02/19 09:27 Gabapentin (Neurontin) 300 mg THREE TIMES A DAY ORAL 09/13/19 09:00 10/13/19 08:59 10/02/19 09:27 Guaifenesin (Robitussin) 200 mg Q4H PRN ORAL For Cough 09/12/19 22:30 12/11/19 22:29 Ibuprofen (Motrin) 600 mg Q6H PRN ORAL For Pain 09/12/19 22:30 10/12/19 22:29 Lorazepam (Ativan 2mg/ml 1ml) 1 mg Q6H PRN IV For Anxiety 09/26/19 13:15 10/03/19 13:14 Lorazepam (Ativan) 1 mg Q6H PRN ORAL For Anxiety 09/26/19 13:15 10/03/19 13:14 Metoprolol Tartrate (Lopressor) 100 mg DAILY ORAL 09/13/19 09:00 12/12/19 08:59 10/02/19 09:27 Multivitamins Therapeutic (Therapeutic Multivitamin) 1 ea DAILY ORAL 09/13/19 09:00 10/13/19 08:59 10/02/19 09:28 Pantoprazole (Protonix) 40 mg DAILY ORAL 09/13/19 09:00 10/13/19 08:59 10/02/19 09:27 Polyethylene Glycol (Miralax) 17 gm DAILY ORAL 09/13/19 09:00 10/13/19 08:59 10/02/19 09:27 Assessment/Plan Assessment/Plan IMPRESSION: 1. History of previous UTI. 2. Bronchitis. 3. Positive COVID-19. 4. CVA. DISCUSSION: The patient is a longterm resident. Agree with antibiotics. Has positive PCR for COVID-19. Saturating well on 2L/min O2 Yandel Yap M.D. Yandel Yap MD October 02, 2019 11:38
[2019-10-02 12:00] VITALS: BP 129/64
--- NOTE | 2019-10-02 13:49 | NUR ---
DISCHARGE PLANNING FOLLOW UP CALL MADE TO JOSE LUISLavell WHYTE @ [phone], S/W [facility]. CONFIRMED PATIENT ACCEPTED TO RETURN TO BED [address] PAIGE MESSAGED TO INFORM PATIENT ACCEPTED TO RETURN TO SNF. AWAITING RESPONSE RE DISCHARGE. Addendum: 10/02/19 at 1459 by GILBERTO NOLAN LVN LVN CALL BACK FROM [facility] AT [facility] WITH ROOM CHANGE FROM 117 TO 135-A ALF CARE, NOT SKILLED RN JENNIFER INFORMED OF THIS CHANGE
--- NOTE | 2019-10-02 15:58 | NUR ---
DISCHARGE PLAN PER VEHANS AT [facility], THEY ARE UNABLE TO ADMIT PATIENT DUE TO TEMP OF 99.6 ON 10/01/19 PATIENT REFERRED TO [facility] [phone] RM 120-A CALL BACK RECEIVED FROM PAT TO INFORM THAT [facility] CAN ACCEPT PATIENT. THEY WILL SERVICE PATIENT UNTIL HE RESULTS COVID NEGATIVE AND THEN RETURN TO [facility]. [facility] AT [facility] INFORMED AND DON IS IN AGREEMENT TO RE-ADMIT PATIENT ONCE COVID NEGATIVE. S AMBULANCE TRANSPORT SCHEDULED WITH [facility] WITH ETA @ 1500
[2019-10-02 16:28] VITALS: BP 133/66
--- NOTE | 2019-10-02 16:44 | NUR ---
NURSE NOTES Discharge to SNF obtained, patient made aware regarding plan of care, Homero BOONE notified Giovanna daughter regarding patient discharge, and agreed with the plan of care, report given to Preethi receiving RN accordingly perineal care done picture taken report given to ambulance accordingly rafy sargent
--- NOTE | 2019-10-02 17:01 | NUR ---
nurse notes discharged in stable condition with all belongings taken accompanied by ambulance personnel, discharge via ambulance rafy sargent
--- NOTE | 2019-10-03 00:03 | Psych Consult Progress Note ---
Psychiatry Progress Note Psychiatry Progress Note Neurological/Psychiatric: Reports: anxiety, depressed, emotional problems Allergies: Coded Allergies: No Known Allergies (Unverified , 09/03/14) Objective Data Height (Feet): 5 Height (Inches): 11.00 Weight (Pounds): 169 General Appearance: WD/WN, no apparent distress, alert Additional Comments: Alert and disoriented. Mood is neutral. Affect is flat. Thought process is concrete. Thought content, no suicidal or homicidal ideation. ASSESSMENT: Stable. PLAN: Continue current medications. Assessment/Plan Assessment/Plan: ASSESSMENT: Dementia with behavior disturbance. PLAN: 1. We will start the patient on Ativan as needed. 2. Depakote 250 mg at bedtime. Bhavin Bailon MD October 03, 2019 00:03
--- NOTE | 2019-10-03 10:15 | Discharge Summary ---
Discharge Summary Discharge Summary _ DATE OF ADMISSION: 09/12/2019 DATE OF DISCHARGE: 10/02/2019 DISCHARGED BY: Dr. oFote REASON FOR ADMISSION: 83 years old male, resident of half-way facility, with past medical history of CVA with hemiparesis, complicated UTI, presented with cough, shortness of breath, fever and chills for 1 day. Patient presented from the half-way facility and there was concern for COVID exposure. Upon evaluation patient was febrile, and hypoxic. Laboratory work-up revealed no leukocytosis, stable hemoglobin, hematocrit and platelet count. Urinalysis revealed +1 protein, no evidence of urinary tract infection. Stable electrolytes and renal parameters. Lactic acid 1.1. Troponin negative . EKG revealed sinus rhythm no acute ischemic changes Stable LFT. chest x-ray demonstrated right infrahilar opacity, atelectasis versus infiltrate. In emergency department patient received empiric antibiotic , swabbed for CoVID -19 and admitted to isolation room for further management. CONSULTANTS: ID specialist Dr. King pulmonary Dr. Yap psychiatrist Dr. Bailon [facility] COURSE: Patient admitted to isolation room and started on empiric antibiotic. Supplemental oxygen provided and titrated to keep pulse oximetry above 92%. Pulmonary toilet provided. Blood cultures were negative. Initial SARS-CoV-2 by PCR on 09/11 was detected. Patient continued to be in isolation. Patient undergone treatment with Plaquenil. QT interval was closely monitored. No evidence of cardiotoxicity. Patient completed empiric antibiotics for pneumonia. Fevers resolved . Repeated SARS-CoV- 2 by PCR on 09/26 and 09/30 still detected. Per recent CDC recommendation patient can be discharged ; was in the hospital 20-day without fever for the last 72 hours. Blood pressure was managed with current regimen and remained stable. SNF medication continued. GI prophylaxis provided. Bowel regimen instituted. Psychiatrist follow. Psychiatric medication regimen optimized as per psychiatrist Patient clinically stabilized and was ready for discharge to half-way facility for continuation of care FINAL DIAGNOSES: Confirmed COVID-19 pneumonia Bronchitis Dementia with behavioral disturbances History of CVA Hypertension Hyperlipidemia History of chronic back pain Depression DISCHARGE MEDICATIONS: See Medication Reconciliation list. DISCHARGE INSTRUCTIONS: Patient was discharged to the half-way facility. Follow up with medical doctor at the facility. I have been assigned to dictate discharge summary for this account. I was not involved in the patient's management. Gely Pratt NP October 03, 2019 10:15
== END 2019-10-02 17:14 | DRG 177 ==
LOC: EDBD 16:46 → EMR 17:15 → 4E 18:09 → EDBEDREQ 20:36 → 4E 09-14 17:48
DX: U07.1 COVID-19 (principal); J12.89 Other viral pneumonia; G93.40 Encephalopathy, unspecified; I69.359 Hemiplegia and hemiparesis following cerebral infarction affecting unspecified side; F03.91 Unspecified dementia, unspecified severity, with behavioral disturbance; I10 Essential (primary) hypertension; E78.5 Hyperlipidemia, unspecified; G89.29 Other chronic pain; M54.9 Dorsalgia, unspecified; F32.9 Major depressive disorder, single episode, unspecified; N40.0 Benign prostatic hyperplasia without lower urinary tract symptoms; J20.9 Acute bronchitis, unspecified
CPT/HCPCS: 36415; 71045; 80053; 81003; 83605; 83690; 83735; 83880; 84100; 84484; 85025; 87040; 87081; 87635; 93005; 96361; 96365; 96367; 99285; J7030